=== PATIENT | female | born 1965 | race Caucasian/White ===

== ENCOUNTER 2022-10-13 07:54 | Outpatient (AMB) | payer BC, SELFPAY ==
[2022-10-13 08:02] VITALS: BP 122/78; PULSE 79; O2SAT 97; BMI 25.7
--- NOTE | 2022-10-13 08:02 | A.OFFVIS_ITS ---
Intake Vital Signs 10/13/22 08:02 Height 5 ft 6 in Weight 159 lb 8 oz BMI 25.7 BP 122/78 Blood Pressure Location Rt brachial Position Sitting Pulse 79 Pulse Source Pulse Oximeter Pulse Oximetry (%) 97 Oxygen Delivery Method Room Air Intake Visit Reasons: rENP-Stiffness,Myalgias -confirmed Intake Note: Pt presents in office as a NPV for stiffness, Myalgias Storage Receipt Poster Required: No Allergies codeine Allergy (Unknown, Verified 10/13/22 08:07) Unknown naproxen Allergy (Unknown, Verified 10/13/22 08:07) Itching Medication List - Last Reconciled 10/13/22 by Whitney Castro MD cholecalciferol (vitamin D3) 25 mcg PO DAILY estradiol 0.01%(0.1mg/gram) vaginal glucosamine HCl PO DAILY magnesium oxide 500 mg PO DAILY multivitamin 1 tab PO DAILY HPI HPI Comments History of Present Illness Details 56y/o female comes for generalized stiff ness and pain. About 4 mths ago she went for her usually lunch time walk and tried a thigh master . 2 days later she noticed difficulty climbing up and down the stairs , difficulty using her upper arms has pain in her thighs and yudy upper arms and neck pain usually with action. It is worse at night. she elevates her LE at night. she started advil which helps transiently. Her primary care checked JUDI was negative, ESR 34 and decreased to 17 , normal CK and other labs. SHe denies joint pain.she has not been exercising. she denies numbness. she has neck and shoulder pain.she denies weakness but has difficulty moving because of pain.She is peeing her urinal due to difficulty with sitting. [facility] Medical History (Updated 10/13/22 @ 08:36 by Whitney Castro MD) Weakness Muscle pain Cervicalgia Anxiety Surgical History H/O: hysterectomy Hx of vaginal surgery Hx of eye surgery Family History Mother Diabetes Hepatitis Father Diabetes Cerebrovascular accident (CVA) Social History (Updated 10/13/22 @ 08:12 by Josie Heller CMA) Alcohol intake: current Alcohol intake frequency: a few times a month Patient Tobacco Use Status: Former Tobacco user e-Cigarette/Vaping Use: Currently Using Substance Use Type: Marijuana Review of Systems Const Reports no additional complaints ENT Reports neck pain Musc Reports muscle cramps, Reports muscle weakness and Reports neck pain Psych Reports anxiety Physical Exam Vital Signs: Last Vital Signs Pulse 79 10/13/22 08:02 BP 122/78 10/13/22 08:02 Pulse Ox 97 10/13/22 08:02 Oxygen Delivery Method Room Air 10/13/22 08:02 BMI result Body Mass Index 25.7 Const General: cooperative and in distress Nutritional Appearance: average body habitus Orientation/consciousness: patient oriented x3 Eyes Pupils: Equal, round and reactive pupils present Neuro General: patient oriented x3, tone normal, moves all extremities and no focal motor deficits Cranial nerves: Yes Facial sensation intact/muscles of mastication intact, Yes Equal, round and reactive pupils present, Yes Bilaterally intact EOM present, Yes Nystagmus not present, Yes Normal facial strength present, Yes Midline tongue present, Yes Symmetric palate elevation present and Yes Ability to bilaterally elevate shoulders present Cognition (Neuro): normal cognition Gait exam (Neuro): Antalgic gait present Motor exam (neuro): 5/5 motor strength present throughout and Normal motor muscle tone present throughout Deep tendon reflexes (DTR's): Right triceps reflex intensity grade: 3+, Left triceps reflex intensity grade: 3+, Rt Biceps (C5, C6): 3+, Left biceps reflex intensity grade: 3+, Right brachioradialis reflex intensity grade: 3+, Left brachioradialis reflex intensity grade: 3+, Right patellar reflex intensity grade: 3+ and Left patellar reflex intensity grade: 3+ Coordination: [id number] test normal Assessment & Plan Assessment & Plan (1) Muscle pain: Code(s): M79.10 - Myalgia, unspecified site (2) Weakness: Code(s): R53.1 - Weakness (3) Cervicalgia: Code(s): M54.2 - Cervicalgia Plan Reviewed labs from [facility] will evaluate her with EMG C spine X patricia nd trial on gabapentin 300mg 1-2 tabs qhs Refer to Rheumatology for evaluation. Orders: Orders NE electromyogram (EMG) Today M79.10 - Myalgia, unspecified site, R53.1 - Weakness XR cervical spine 3V Today M54.2 - Cervicalgia Referrals Rheumatology Referral M79.10 - Myalgia, unspecified site, R53.1 - Weakness Medications: New gabapentin 1-2 orally bedtime; 60 caps 6RF Coding Level of Care Code New Pt Level 4 (26873) Diagnoses Muscle pain M79.10 Weakness R53.1 Cervicalgia M54.2
== END 2022-10-13 08:45 | disposition home or self-care (01) ==
PROVIDERS: PCP Physician Assistant; Visit Provider Psychiatry & Neurology Neurology
DX: M79.10 Myalgia, unspecified site (principal); R53.1 Weakness; M54.2 Cervicalgia
CPT/HCPCS: 99204

== ENCOUNTER → 2022-10-13 07:54 | Outpatient (BNVA) | payer BC, SELFPAY | PROVIDERS: PCP Physician Assistant; Visit Provider Psychiatry & Neurology Neurology ==

== ENCOUNTER 2022-11-17 15:15 | Outpatient (REF) | payer BC, SELFPAY ==
--- NOTE | 2022-11-17 15:19 | EMG_ITS ---
Chief complaint: Morning stiffness affecting neck, shoulders, thighs. Difficulty with going up stairs. Denies weakness. Reason for referral: Evaluate for myopathy Referred by: Dr. Castro Procedure done: Right upper extremity and right lower extremity NCS/EMG Precautions and/or limitations: None The limb temperature was monitored continuously and remained between 32-36 degrees C during the performance of the NCS. Nerve Conduction Studies Anti Sensory Summary Table ?Stim Site NR Onset (ms) Norm Onset (ms) Peak (ms) Norm Peak (ms) O-P Amp (?V) Norm O-P Amp Site1 Site2 Delta-0 (ms) Dist (cm) Nathan (m/s) Norm Nathan (m/s) Right Median Anti Sensory (2nd Digit) Wrist ? 3.1 3.6 <3.6 29.4 >10 Wrist 2nd Digit 3.1 14.0 45 Right Radial Anti Sensory (Thumb) Forearm ? 1.7 2.1 <3.1 27.9 Forearm Thumb 1.7 0.0 Right Sural Anti Sensory (Lat Mall) Calf ? 2.3 3.4 <4.0 13.1 >5.0 Calf Lat Mall 2.3 14.0 61 Right Ulnar Anti Sensory (5th Digit) Wrist ? 3.2 3.7 <3.7 33.8 >15.0 Wrist 5th Digit 3.2 14.0 44 Motor Summary Table ?Stim Site NR Onset (ms) Norm Onset (ms) O-P Amp (mV) Norm O-P Amp iAmp (mV) Amp (1st) (%) Site1 Site2 Delta-0 (ms) Dist (cm) Nathan (m/s) Norm Nathan (m/s) Right Median Motor (Abd Poll Brev) Wrist ? 3.4 <3.9 10.9 >4.5 12.4 100.0 Elbow Wrist 3.4 18.5 54 >45 Elbow ? 6.8 10.2 11.6 93.6 Right Peroneal Motor (Ext Dig Brev) Ankle ? 3.5 <4.0 4.5 >2.5 5.1 100.0 Ankle Ext Dig Brev 3.5 0.0 B Fib ? 10.3 4.2 4.9 93.3 B Fib Ankle 6.8 30.0 44 >40 Poplt ? 10.5 5.7 7.2 126.7 Poplt B Fib 0.2 4.0 200 >40 Right Tibial Motor (Abd Arnett Brev) Ankle ? 3.0 <5 9.4 >2.5 15.3 100.0 Ankle Abd Arnett Brev 3.0 0.0 Knee ? 10.2 10.4 14.3 110.6 Knee Ankle 7.2 38.0 53 >40 Right Ulnar Motor (Abd Dig Minimi) Wrist ? 3.0 <3.0 10.6 >5 13.6 100.0 B Elbow Wrist 3.3 17.0 52 >45 B Elbow ? 6.3 9.4 12.4 88.7 A Elbow B Elbow 1.9 10.0 53 >45 A Elbow ? 8.2 9.2 12.4 86.8 EMG ?Side Muscle Nerve Root Ins Act Fibs Psw Amp Dur Poly Recrt Int Pat Comment Right AbdHallucis MedPlantar S1-2 Nml Nml Nml Nml Nml 0 Nml Complete Right AntTibialis Dp Br Peron L4-5 Nml Nml Nml Nml Nml 0 Nml Complete Right PostTibialis Tibial L5, S1 Nml Nml Nml Nml Nml 0 Nml Complete Right MedGastroc Tibial S1-2 Nml Nml Nml Nml Nml 0 Nml Complete Right VastusMed Femoral L2-4 Nml Nml Nml Nml Nml 0 Nml Complete Right 1stDorInt Ulnar C8-T1 Nml Nml Nml Nml Nml 0 Nml Complete Right FlexCarRad Median C6-7 Nml Nml Nml Nml Nml 0 Nml Complete Right Biceps Musculocut C5-6 Nml Nml Nml Nml Nml 0 Nml Complete Right Triceps Radial C6-7-8 Nml Nml Nml Nml Nml 0 Nml Complete Right Deltoid Axillary C5-6 Nml Nml Nml Nml Nml 0 Nml Complete Paraspinal EMG ?Side Muscle Nerve Root Ins Act Fibs Psw Comment Right Lumbar Upper Rami Nml Nml Nml Right Lumbar Mid Rami Nml Nml Nml Right Lumbar Lower Rami Nml Nml Nml Right Cervical Upper Rami Nml Nml Nml Right Cervical Mid Rami Nml Nml Nml Right Cervical Lower Rami Nml Nml Nml FINDINGS: All motor and sensory nerves tested showed normal latencies, amplitudes and conduction velocities. Concentric needle EMG was performed in selected muscles of the right upper and lower extremities, cervical paraspinals, lumbar paraspinals. Study did not reveal signs of electric abnormalities as shown in the table below. No myopathic-looking MUAPS. IMPRESSION: 1. This is a normal Study. 2. There is no electrodiagnostic evidence for right median neuropathy, ulnar neuropathy, brachial plexopathy, cervical radiculopathy, peroneal neuropathy, tibial neuropathy. lumbosacral plexopathy, lumbar radiculopathy, or peripheral neuropathy. 3. There is no electrodiagnostic evidence for myopathic disorder. Thank you for your kind referral. Susan Taylor MD, ALICE Board Certified, [place] [employer] and [employer] (ABPMR) Board Certified, [place] Board [employer] Electrodiagnostic [employer] (ABEM) CODIN 44658 x 2 MTDD
== END 2022-11-17 15:16 | disposition home or self-care (01) ==
LOC: HO.NEURO 15:15
PROVIDERS: PCP Physician Assistant; Visit Provider Psychiatry & Neurology Neurology
DX: M79.10 Myalgia, unspecified site (principal); R53.1 Weakness
CPT/HCPCS: 95886; 95910

== ENCOUNTER → 2022-11-17 15:19 | Outpatient (BNV) | payer BC, SELFPAY | PROVIDERS: PCP Physician Assistant; Visit Provider Physical Medicine & Rehabilitation | DX: M25.60 Stiffness of unspecified joint, not elsewhere classified (principal) | CPT/HCPCS: 95886; 95910 ==

== ENCOUNTER 2022-11-24 07:46 | Outpatient (AMB) | payer BC, SELFPAY ==
--- NOTE | 2022-11-24 07:58 | MHC.OFFVIS ---
Intake Vital Signs 11/24/22 08:00 Height 5 ft 6 in Weight 159 lb 2.78 oz BMI 25.7 BP 182/76 H Blood Pressure Location Rt brachial Position Sitting Pulse 98 Pulse Source Pulse Oximeter Pulse Oximetry (%) 98 Oxygen Delivery Method Room Air Intake Visit Reasons: Myalgia Intake Note: New pt presents today for consult, referred by Neurology. C/o muscle pain and inflammation. Allergies codeine Allergy (Unknown, Verified 11/24/22 08:06) Unknown naproxen Allergy (Unknown, Verified 11/24/22 08:06) Itching Medication List - Last Reconciled 11/24/22 by Vi Peters MD cholecalciferol (vitamin D3) 25 mcg PO DAILY estradiol 0.01%(0.1mg/gram) vaginal gabapentin 1-2 orally bedtime; glucosamine HCl PO DAILY magnesium oxide 500 mg PO DAILY multivitamin 1 tab PO DAILY omega 3-gsa-upn-fish oil 60-90-500 mg (Fish Oil) 1 cap PO DAILY HPI HPI Comments History of Present Illness Details This is a 57-year-old female who presents for evaluation of generalized stiffness. Five months ago patient started having stiffness of her thighs and shoulders, usually worse in the morning and when getting up after sitting down for some time, she was evaluated by her PCP and labs were done including ASIYA, CPK which were negative. ESR was initially 34 then normalized to 17. She was evaluated by a neurologist and had EMG/NCV of all 4 extremities which were unremarkable with no neuropathic or myopathic process. Patient read up on her symptoms online and thought that she likely had PMR. She has been taking ibuprofen 800 mg nightly as well as tizanidine nightly. She borrowed the medications from her friends. She feels that they are helping. She denies any weight changes, fevers, skin rashes. Denies any Raynaud's. No history of DVT/PE. She she has no history of abortions or miscarriages PFSH Medical History (Updated 11/24/22 @ 08:54 by Vi Peters MD) Weakness Muscle pain Cervicalgia Anxiety Surgical History H/O: hysterectomy Hx of vaginal surgery Hx of eye surgery Family History Mother Diabetes Hepatitis Father Diabetes Cerebrovascular accident (CVA) Social History Alcohol intake: current Alcohol intake frequency: a few times a month Patient Tobacco Use Status: Former Tobacco user e-Cigarette/Vaping Use: Currently Using Substance Use Type: Marijuana Female Reproductive History Menstrual Total pregnancies: 2 Full term: 2 Review of Systems Const Denies weight gain and Denies weight loss ENT Reports neck pain Musc Reports limited range of motion, Reports neck pain and Reports stiffness Skin/Breast Denies rash Neuro Denies paresthesias Physical Exam Vital Signs: Last Vital Signs Pulse 98 11/24/22 08:00 BP 182/76 H 11/24/22 08:00 Pulse Ox 98 11/24/22 08:00 Oxygen Delivery Method Room Air 11/24/22 08:00 BMI result Body Mass Index 25.7 Const General: cooperative, healthy appearing and comfortable Nutritional Appearance: average body habitus Orientation/consciousness: patient oriented x3 Limitations: no limitations HEENT Head: Yes normocephalic and Yes atraumatic Resp Effort & Inspection: normal respiratory effort and able to speak in complete sentences Auscultation: clear to auscultation bilaterally Cardio Rate: regular rate Rhythm: regular rhythm GI Inspection: No distended Palpation (GI): Soft to palpation and nontender Skin General skin exam: no rashes or lesions noted Neuro General: patient oriented x3 Extrem Other: Mild osteoarthritic changes of both hands with no active synovitis Normal nailfold capillaroscopy Normal range of motion of both shoulders with minimal pain on full abduction Negative rotator cuff provocative maneuvers bilaterally Proximal muscle strength 5/5 both upper and lower extremities Assessment & Plan Assessment & Plan (1) Stiffness in joint: Code(s): M25.60 - Stiffness of unspecified joint, not elsewhere classified Plan: This is a 57-year-old female who presents for evaluation of stiffness of her shoulders and thighs for the last 4-5 months. Order comprehensive serology to screen for underlying autoimmune rheumatic disease. Check x-rays of both shoulders and knees Plan I spent 46 minutes reviewing patient's chart, evaluating patient, ordering diagnostic workup, counseling patient and documenting in the chart Orders: Orders Complete Blood Count Auto Diff Today M60.9 - Myositis, unspecified Comprehensive Met. Panel Today M60.9 - Myositis, unspecified Creatine Kinase Total Today M60.9 - Myositis, unspecified Protein Electrophoresis, Serum Today M60.9 - Myositis, unspecified Rheumatoid Factor Today M25.50 - Pain in unspecified joint Cyclic Citrullinated Peptide Today M60.9 - Myositis, unspecified Protein Creatinine Ratio, Ur Today M60.9 - Myositis, unspecified Sjogren's Antibodies Today M60.9 - Myositis, unspecified XR shoulder LT min 2V Today M25.50 - Pain in unspecified joint XR knee LT 3V Today M25.50 - Pain in unspecified joint XR knee standing BI Today M25.50 - Pain in unspecified joint C Reactive Protein Today M60.9 - Myositis, unspecified Erythrocyte Sedimentation Rate Today M60.9 - Myositis, unspecified Immunofixation Pnl, Serum Today M60.9 - Myositis, unspecified Hepatitis A,B,C Profile Today Z11.59 - Encounter for screening for other viral diseases Aldolase Today M60.9 - Myositis, unspecified Lactate Dehydrogenase Today M60.9 - Myositis, unspecified Anti Extractable Nuclear Ag Today M60.9 - Myositis, unspecified Anti DNA DS Antibody Today M60.9 - Myositis, unspecified Complement C3 Today M60.9 - Myositis, unspecified Complement C4 Today M60.9 - Myositis, unspecified UA w Microscopic Today M60.9 - Myositis, unspecified DNA Double Stranded-Crithidia Today M60.9 - Myositis, unspecified MSA Panel Extended Today M60.9 - Myositis, unspecified XR shoulder RT min 2V Today M25.50 - Pain in unspecified joint XR knee RT 3V Today M25.50 - Pain in unspecified joint Coding Level of Care Code New Pt Level 4 (78491) Diagnoses Stiffness in joint M25.60
[2022-11-24 08:00] VITALS: BP 182/76; PULSE 98; O2SAT 98; BMI 25.7
== END 2022-11-24 08:38 | disposition home or self-care (01) ==
PROVIDERS: PCP Physician Assistant; Visit Provider Student in an Organized Health Care Education/Training Program
DX: M25.60 Stiffness of unspecified joint, not elsewhere classified (principal)
CPT/HCPCS: 99204

== ENCOUNTER 2022-11-24 07:46 | Outpatient (REF) | payer BC, SELFPAY ==
--- NOTE | ~2022-11-24 | XR_ITS ---
EXAMINATION: XR BILATERAL KNEES, BILATERAL SHOULDERS CLINICAL INFORMATION: Pain in unspecified joint, mostly of bilateral shoulders COMPARISON: None TECHNIQUE: 4 views right knee, 5 views left knee, 4 views left shoulder, 4 views right shoulder FINDINGS: Left knee: AP, tunnel, lateral and 2 sunrise views of the left knee. Tiny posterior patellar and medial marginal osteophytes. No significant joint effusion. Faint small anterior superior patellar spur. Mild medial joint space narrowing. Focal irregular, sclerotic lesion measuring 2.0 x 1.5 cm, along the distal medial diametaphysis of the posterior left femur, possibly a chondroid lesion. Right knee: No significant joint effusion. Mild medial joint space narrowing. Tiny medial marginal osteophytes. Right shoulder: Mild osteoarthritic changes in the acromioclavicular joint. Mild degenerative changes with hypertrophic change along the inferior aspect of the glenoid. Glenohumeral alignment preserved. No abnormal soft tissue calcifications identified adjacent to the humeral head. Left shoulder: Mild osteoarthritic changes in the acromioclavicular joint. Mild degenerative changes with hypertrophic change along the inferior aspect of the glenoid. Glenohumeral alignment preserved. No abnormal soft tissue calcifications identified adjacent to the humeral head. XR/XR knee RT 4V IMPRESSION: 1. Mild degenerative changes in the bilateral knees. 2. Focal possibly chondroid lesion along the distal posterior medial diametaphysis of the left femur. Correlation with clinical exam as well as orthopedic consultation and possible MRI recommended to determine further management. 3. Mild degenerative changes in the bilateral shoulders. This study was presented today 11/29/2022 at 9:30 AM for interpretation. [facility] staff will provide results to referring provider at this time.
--- NOTE | ~2022-11-24 | XR_ITS ---
EXAMINATION: XR BILATERAL KNEES, BILATERAL SHOULDERS CLINICAL INFORMATION: Pain in unspecified joint, mostly of bilateral shoulders COMPARISON: None TECHNIQUE: 4 views right knee, 5 views left knee, 4 views left shoulder, 4 views right shoulder FINDINGS: Left knee: AP, tunnel, lateral and 2 sunrise views of the left knee. Tiny posterior patellar and medial marginal osteophytes. No significant joint effusion. Faint small anterior superior patellar spur. Mild medial joint space narrowing. Focal irregular, sclerotic lesion measuring 2.0 x 1.5 cm, along the distal medial diametaphysis of the posterior left femur, possibly a chondroid lesion. Right knee: No significant joint effusion. Mild medial joint space narrowing. Tiny medial marginal osteophytes. Right shoulder: Mild osteoarthritic changes in the acromioclavicular joint. Mild degenerative changes with hypertrophic change along the inferior aspect of the glenoid. Glenohumeral alignment preserved. No abnormal soft tissue calcifications identified adjacent to the humeral head. Left shoulder: Mild osteoarthritic changes in the acromioclavicular joint. Mild degenerative changes with hypertrophic change along the inferior aspect of the glenoid. Glenohumeral alignment preserved. No abnormal soft tissue calcifications identified adjacent to the humeral head. XR/XR shoulder LT min 2V IMPRESSION: 1. Mild degenerative changes in the bilateral knees. 2. Focal possibly chondroid lesion along the distal posterior medial diametaphysis of the left femur. Correlation with clinical exam as well as orthopedic consultation and possible MRI recommended to determine further management. 3. Mild degenerative changes in the bilateral shoulders. This study was presented today 11/29/2022 at 9:30 AM for interpretation. [facility] staff will provide results to referring provider at this time.
--- NOTE | ~2022-11-24 | XR_ITS ---
EXAMINATION: XR BILATERAL KNEES, BILATERAL SHOULDERS CLINICAL INFORMATION: Pain in unspecified joint, mostly of bilateral shoulders COMPARISON: None TECHNIQUE: 4 views right knee, 5 views left knee, 4 views left shoulder, 4 views right shoulder FINDINGS: Left knee: AP, tunnel, lateral and 2 sunrise views of the left knee. Tiny posterior patellar and medial marginal osteophytes. No significant joint effusion. Faint small anterior superior patellar spur. Mild medial joint space narrowing. Focal irregular, sclerotic lesion measuring 2.0 x 1.5 cm, along the distal medial diametaphysis of the posterior left femur, possibly a chondroid lesion. Right knee: No significant joint effusion. Mild medial joint space narrowing. Tiny medial marginal osteophytes. Right shoulder: Mild osteoarthritic changes in the acromioclavicular joint. Mild degenerative changes with hypertrophic change along the inferior aspect of the glenoid. Glenohumeral alignment preserved. No abnormal soft tissue calcifications identified adjacent to the humeral head. Left shoulder: Mild osteoarthritic changes in the acromioclavicular joint. Mild degenerative changes with hypertrophic change along the inferior aspect of the glenoid. Glenohumeral alignment preserved. No abnormal soft tissue calcifications identified adjacent to the humeral head. XR/XR knee LT 4V IMPRESSION: 1. Mild degenerative changes in the bilateral knees. 2. Focal possibly chondroid lesion along the distal posterior medial diametaphysis of the left femur. Correlation with clinical exam as well as orthopedic consultation and possible MRI recommended to determine further management. 3. Mild degenerative changes in the bilateral shoulders. This study was presented today 11/29/2022 at 9:30 AM for interpretation. [facility] staff will provide results to referring provider at this time.
--- NOTE | ~2022-11-24 | XR_ITS ---
EXAMINATION: XR BILATERAL KNEES, BILATERAL SHOULDERS CLINICAL INFORMATION: Pain in unspecified joint, mostly of bilateral shoulders COMPARISON: None TECHNIQUE: 4 views right knee, 5 views left knee, 4 views left shoulder, 4 views right shoulder FINDINGS: Left knee: AP, tunnel, lateral and 2 sunrise views of the left knee. Tiny posterior patellar and medial marginal osteophytes. No significant joint effusion. Faint small anterior superior patellar spur. Mild medial joint space narrowing. Focal irregular, sclerotic lesion measuring 2.0 x 1.5 cm, along the distal medial diametaphysis of the posterior left femur, possibly a chondroid lesion. Right knee: No significant joint effusion. Mild medial joint space narrowing. Tiny medial marginal osteophytes. Right shoulder: Mild osteoarthritic changes in the acromioclavicular joint. Mild degenerative changes with hypertrophic change along the inferior aspect of the glenoid. Glenohumeral alignment preserved. No abnormal soft tissue calcifications identified adjacent to the humeral head. Left shoulder: Mild osteoarthritic changes in the acromioclavicular joint. Mild degenerative changes with hypertrophic change along the inferior aspect of the glenoid. Glenohumeral alignment preserved. No abnormal soft tissue calcifications identified adjacent to the humeral head. XR/XR shoulder RT min 2V IMPRESSION: 1. Mild degenerative changes in the bilateral knees. 2. Focal possibly chondroid lesion along the distal posterior medial diametaphysis of the left femur. Correlation with clinical exam as well as orthopedic consultation and possible MRI recommended to determine further management. 3. Mild degenerative changes in the bilateral shoulders. This study was presented today 11/29/2022 at 9:30 AM for interpretation. [facility] staff will provide results to referring provider at this time.
[2022-11-24 09:49] LABS: MANUAL DIFF FLAG NO
[2022-11-24 10:53] LABS: Basophils Percent Auto 0.4 % (0-2); Eosinophils Absolute Auto 0.1 X10*3/uL (0.0-0.4); Eosinophils Percent Auto 0.6 % (0-4); Hematocrit 41.7 % (37.0-47.0); Imm Gran Abs Auto 0.03 X10*3/uL (0.00-0.03); Imm Gran Pct Auto 0.4 % (0.0-0.4); Lymphocytes Absolute Auto 1.7 X10*3/uL (1.2-4.9); Lymphocytes Percent Auto 21.8 % (20-40); Mean Corpuscular HGB Conc 33.6 g/dl (31.0-35.0); Mean Corpuscular Hemoglobin 30.4 pg (27.0-33.0); Mean Corpuscular Volume 90.5 fL (80.0-98.0); Mean Platelet Volume 9.7 fL (9.4-12.3); Monocytes Absolute Auto 0.7 X10*3/uL (0.1-1.2); Monocytes Percent Auto 9.5 % (2-11); Neutrophils Absolute Auto 5.2 x10*3/uL (2.0-8.3); Neutrophils Percent Auto 67.3 % (45-73); Platelet Count 335 X10*3/uL (160-400); Red Blood Count 4.61 X10*6/uL (4.20-5.50); Red Cell Distribution Width 13.9 % (11.0-16.0); White Blood Count 7.8 X10*3/uL (4.8-10.8)
[2022-11-24 11:07] LABS: Appearance Urine Clear; Color Urine Yellow; Glucose Urine UA Negative (Negative); Leukocyte Esterase Urine Moderate (2+) (Negative); Nitrite Urine Positive (Negative); PH 7.5 (5.0-9.0); UMIC TRIGGER UA YES; Urine Blood Negative (Negative); Urine Ketones Negative (Negative); Urine Protein Negative (Neg-Trace)
[2022-11-24 11:10] LABS: Bacteria Urine 4+ (None Seen); Hyaline Casts Urine 0-2 /LPF (0-2); RBC Urine 0-2 /HPF (0-2)
[2022-11-24 11:32] LABS: Erythrocyte Sedimentation Rate 38 MM/HR (0-20)
[2022-11-24 12:09] LABS: Alanine Aminotransferase 17 U/L (0-31); Albumin Level 4.2 g/dL (3.5-5.0); Alkaline Phosphatase 103 U/L (39-117); Anion Gap 14 (12-20); Aspartate Amino Transferase 18 U/L (5-31); Bilirubin Total 0.6 mg/dL (0.0-1.0); Blood Urea Nitrogen 12 mg/dL (9-16); C Reactive Protein 4.25 mg/dL (< or = 0.50); Calcium 10.1 mg/dL (8.4-10.2); Carbon Dioxide 25 mmol/L (22-29); Chloride 105 mmol/L (96-108); Estimated Glomerular Filt Rate > 60; Glucose Random 82 mg/dL (60-115); Lactate Dehydrogenase 194 U/L (122-220); Potassium 3.8 mmol/L (3.3-5.1); Sodium 140 mmol/L (135-145); Total Protein 7.9 g/dL (6.5-8.0)
[2022-11-24 12:57] LABS: Rheumatoid Factor < 13.0 IU/mL (<15.0)
[2022-11-24 13:33] LABS: Creatinine Urine 40.09 mg/dL; Total Protein Urine Random < 7 mg/dL (<12)
[2022-11-25 08:06] LABS: HBc Num1 0.11 S/CO (0.00-0.79); HBsAGNum1 0.39 S/CO (0.00-0.99); Hepatitis A Antibody IgM 0.38 Index (0-0.79); Hepatitis B Core Antibody Nonreactive (Nonreactive); Hepatitis B Surface Antigen Negative (Negative); ~HepC Num1 0.04 S/CO (0.00-0.79); ~Hepatitis A Antibody IgM Nonreactive (Nonreactive); ~Hepatitis B Surface Antibody NONREACTIVE (Nonreactive); ~Hepatitis C Antibody Nonreactive (Nonreactive)
[2022-11-25 20:53] LABS: Complement C3 183 mg/dL (83-193)
[2022-11-27 11:04] LABS: Cyclic Citrullinated Peptide 89 UNITS
[2022-11-29 06:09] LABS: Aldolase 5.4 U/L (<=8.1)
[2022-11-29 08:33] LABS: PES - Abn Protein Band 1 0.2 g/dL (NONE DETECTED); Prot Elec - Albumin 4.2 g/dL (3.8-4.8); Prot Elec - Alpha1 0.4 g/dL (0.2-0.3); Prot Elec - Alpha2 0.9 g/dL (0.5-0.9); Prot Elec - Beta 1 0.6 g/dL (0.4-0.6); Prot Elec - Beta 2 0.4 g/dL (0.2-0.5); Prot Elec - Gamma 1.2 g/dL (0.8-1.7); Prot Elec - Total Protein 7.6 g/dL (6.1-8.1)
[2022-11-30 13:09] LABS: Anti DNA DS Antibody <1 IU/mL; Antibody to SS-A Antigen <1.0 NEG AI (<1.0 NEG); Antibody to SS-B Antigen <1.0 NEG AI (<1.0 NEG); SM/Ribonucleoprotein Ab <1.0 NEG AI (<1.0 NEG); Smith Protein <1.0 NEG AI (<1.0 NEG)
[2022-11-30 15:23] LABS: DNAds, Crithidia Antibody Negative (Negative)
[2022-12-01 15:05] LABS: IgA 317 mg/dL (47-310); IgG 1275 mg/dL (600-1640); IgM 170 mg/dL (50-300)
[2022-12-05 23:54] LABS: Cytosolic 5'nuc 1A Ab IgG 13 Units; Ej Ab <11 SI (<11); HMGCR Ab IgG <2 CU (<20); Jo-1 Ab <11 SI (<11); MDA5 Ab <11 SI (<11); Mi-2 alpha Ab <11 SI (<11); Mi-2 beta Ab <11 SI (<11); NXP-2 (MJ) Ab <11 SI (<11); Oj Ab <11 SI (<11); Pl-12 Ab <11 SI (<11); Pl-7 Ab <11 SI (<11); SRP Ab <11 SI (<11); TIF1 gamma Ab <11 SI (<11)
== END 2022-11-24 07:47 | disposition home or self-care (01) ==
LOC: HO.XRAY 07:46
PROVIDERS: PCP Physician Assistant; Visit Provider Student in an Organized Health Care Education/Training Program
DX: Z11.59 Encounter for screening for other viral diseases (principal); M25.60 Stiffness of unspecified joint, not elsewhere classified; M60.9 Myositis, unspecified; Z72.89 Other problems related to lifestyle; M25.511 Pain in right shoulder; M25.512 Pain in left shoulder; M25.561 Pain in right knee; M25.562 Pain in left knee
CPT/HCPCS: 36415; 73030; 73564; 80053; 81001; 82085; 82550; 82570; 82784; 83516; 83520; 83615; 84156; 84165; 84182; 85025; 85652; 86140; 86160; 86200; 86225; 86235; 86255; 86334; 86431; 86704; 86706; 86709; 86803; 87340

== ENCOUNTER 2022-12-09 07:46 | Outpatient (AMB) | payer BC, SELFPAY ==
[2022-12-09 08:05] VITALS: BP 138/76; PULSE 70; TEMP 36.2; O2SAT 98; BMI 25.7
--- NOTE | 2022-12-09 08:05 | A.OFFVIS_ITS ---
Intake Vital Signs 12/09/22 08:05 Height 5 ft 6 in Weight 159 lb 2.78 oz BMI 25.7 BP 138/76 Blood Pressure Location Rt brachial Position Sitting Pulse 70 Pulse Source Pulse Oximeter Temp 97.2 F Temp Source Skin Pulse Oximetry (%) 98 Intake Visit Reasons: stiffness Intake Note: Pt last seen 11/24/22, presents today for follow up and test results. Prednisone 20mg daily, pt states she feels better. 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 Required: No Accompanied by: Self / Same As Patient Allergies codeine Allergy (Unknown, Verified 12/09/22 08:12) Unknown naproxen Allergy (Unknown, Verified 12/09/22 08:12) Itching Medication List - Last Reconciled 12/09/22 by iV Peters MD cholecalciferol (vitamin D3) 25 mcg PO DAILY estradiol 0.01%(0.1mg/gram) vaginal gabapentin 1-2 orally bedtime; glucosamine HCl PO DAILY magnesium oxide 500 mg PO DAILY multivitamin 1 tab PO DAILY omega 0-qoj-pqn-fish oil 60-90-500 mg (Fish Oil) 1 cap PO DAILY prednisone 20 mg (2 x 10 mg) PO DIRECTED HPI HPI Comments History of Present Illness Details Patient returns for follow-up. She is currently on prednisone 20 mg daily. States that after 3 days she felt better. At least 96% improvement. Initial history: This is a 57-year-old female who presents for evaluation of generalized stiffness. Five months ago patient started having stiffness of her thighs and shoulders, usually worse in the morning and when getting up after sitting down for some time, she was evaluated by her PCP and labs were done including ASIYA, CPK which were negative. ESR was initially 34 then normalized to 17. She was evaluated by a neurologist and had EMG/NCV of all 4 extremities which were unremarkable with no neuropathic or myopathic process. Patient read up on her symptoms online and thought that she likely had PMR. She has been taking ibuprofen 800 mg nightly as well as tizanidine nightly. She borrowed the medications from her friends. She feels that they are helping. She denies any weight changes, fevers, skin rashes. Denies any Raynaud's. No history of DVT/PE. She she has no history of abortions or miscarriages [facility] Medical History Weakness Muscle pain Cervicalgia Anxiety Surgical History H/O: hysterectomy Hx of vaginal surgery Hx of eye surgery Family History Mother Diabetes Hepatitis Father Diabetes Cerebrovascular accident (CVA) Social History Alcohol intake: current Alcohol intake frequency: a few times a month Patient Tobacco Use Status: Former Tobacco user e-Cigarette/Vaping Use: Currently Using Substance Use Type: Marijuana Review of Systems [place]c Denies arthralgias and Denies stiffness Physical Exam Vital Signs: Last Vital Signs Temp 97.2 F 12/09/22 08:05 Pulse 70 12/09/22 08:05 BP 138/76 12/09/22 08:05 Pulse Ox 98 12/09/22 08:05 BMI result Body Mass Index 25.7 Const General: cooperative, healthy appearing and comfortable Nutritional Appearance: average body habitus Orientation/consciousness: patient oriented x3 Limitations: no limitations HEENT Head: Yes normocephalic and Yes atraumatic Resp Effort & Inspection: normal respiratory effort and able to speak in complete sentences Skin General skin exam: no rashes or lesions noted Neuro General: patient oriented x3 Extrem Other: Mild osteoarthritic changes of both hands with no active synovitis Normal nailfold capillaroscopy Normal range of motion of both shoulders with no pain Negative rotator cuff provocative maneuvers bilaterally Bilateral knee crepitus Proximal muscle strength 5/5 both upper and lower extremities Results Reviewed Results Reviewed: XR/XR knee RT 4V IMPRESSION: Left knee: AP, tunnel, lateral and 2 sunrise views of the left knee. Tiny posterior patellar and medial marginal osteophytes. No significant joint effusion. Faint small anterior superior patellar spur. Mild medial joint space narrowing. Focal irregular, sclerotic lesion measuring 2.0 x 1.5 cm, along the distal medial diametaphysis of the posterior left femur, possibly a chondroid lesion. 1. Mild degenerative changes in the bilateral knees. 2. Focal possibly chondroid lesion along the distal posterior medial diametaphysis of the left femur. Correlation with clinical exam as well as orthopedic consultation and possible MRI recommended to determine further management. 3. Mild degenerative changes in the bilateral shoulders. This study was presented today 11/29/2022 at 9:30 AM for interpretation. PSA staff will provide results to referring provider at this time. Dictated By: Sweetie Cantrell MD Signed By: <Electronically signed by Sweetie Cantrell MD in OV> 11/29/22 [facility] RADIOLOGIC EXAMINATION FEMUR MINIMUM 2 VIEWS Exam Date: 03/09/2022 12:04 PM Ordering Diagnosis: Enchondroma ? LEFT FEMUR-4 VIEWS ? HISTORY: Enchondroma. ? PRIOR: MRI LEFT KNEE 06/20/2016. LEFT KNEE 06/10/2016. ? FINDINGS: 1.6 x 1.7 x 2.1 cm enchondroma of the medial aspect of the medial femoral condyle is unchanged. ? There is no fracture or dislocation. ? The left hip joint and left knee joint are unremarkable. ? IMPRESSION IMPRESSION: Stable 1.6 x 1.7 x 2.1 cm enchondroma of the medial femoral condyle. MRI ANY JT LOW EXTREM W/WO CONTRAST Exam Date: 06/20/2016 9:59 AM Ordering Diagnosis: Abnormal x-ray examinationLeft knee pain, unspecified chronicity ? History: Left knee pain. Distal femoral lesion on plain films. ? Left knee MRI with gadolinium enhancement: A departmental standard gadolinium enhanced knee MRI protocol was used. 7 mL of Magnevist were given for IV contrast. ? FINDINGS: There is a 2.0 x 1.5 x 1.4 cm predominantly high T2 signal intensity fairly circumscribed lesion in the medial aspect of the medial femoral condyle corresponding to the abnormality seen on plain films dated 06/10/2016. It abuts the cortex medially and is distal metaphyseal in location. It contains numerous floccular low to intermediate signal intensity foci. Enhancement is almost entirely peripheral. The appearance is typical for an enchondroma. There is little or no no endosteal scalloping. There are no other additional features to suggest chondrosarcoma. If the patient has pain specifically related to this area, the possibility of chondrosarcoma is increased. A healed or healing bone infarct could conceivably have this configuration but is less likely. The level of confidence the same machine between enchondroma and chondrosarcoma given these characteristics as greater than 95% but not 100%. Correlation with nuclear medicine bone scan has the potential to increase the confidence of the diagnosis. Plain film follow-up is recommended, initially in 3-6 months. ? The menisci, ACL, PCL and collateral ligaments are intact. There are no appreciable cartilage defects or degenerative changes. There is a very small Vazquez's cyst. There is an additional tiny popliteal cyst posterior to the lateral joint compartment. It is probably related to the proximal tibial and fibular articulation. ? IMPRESSION: Findings probably representing an enchondroma in the distal femur. If symptoms are not referable to this lesion, the possibility of chondrosarcoma is extremely remote. If this does correspond to the patient's symptomatic area the likelihood of chondrosarcoma increase is somewhat but is still unlikely. Nuclear medicine bone scan has a potential to increase the degree of confidence in the diagnosis. 3-6 month plain film follow-up is recommended. Assessment & Plan Assessment & Plan (1) PMR (polymyalgia rheumatica): Code(s): M35.3 - Polymyalgia rheumatica Plan: This is a 57-year-old female who presents for evaluation of 4-5 months history of bilateral shoulder and thigh stiffness. Labs showed mildly elevated ESR at 38 that trended down to 17 with ibuprofen then came back up again to 38, CRP was significantly elevated. She has a positive anti CCP antibody in high titer. Patient's symptoms at this stage are more consistent with PMR rather than rheumatoid arthritis, however she definitely does not have a full classic picture of PMR. She might evolve into rheumatoid arthritis She was started on prednisone 20 mg daily with dramatic improvement. For now will treat patient as PMR, if patient starts to develop a flare up, will consider starting DMARDs for rheumatoid arthritis such as methotrexate. Will reduce prednisone to 17.5 mg daily for 2 weeks, 15 mg daily for 2 weeks then remain on 12.5 mg daily for 4 weeks until next visit Labs before next visit in 8 weeks (2) Monoclonal gammopathies: Code(s): D47.2 - Monoclonal gammopathy Plan: Referred to Hematology (3) Enchondroma of femur: Code(s): D16.20 - Benign neoplasm of long bones of unspecified lower limb Qualifiers: Laterality: left Qualified Code(s): D16.22 - Benign neoplasm of long bones of left lower limb Plan: Size has been stable since 2017. This is likely a benign lesion Plan I spent 46 minutes reviewing patient's chart, evaluating patient, ordering diagnostic workup, counseling patient and documenting in the chart Orders: Orders T Spot TB 8 Weeks Z11.7 - Encounter for testing for latent tuberculosis infection Referrals Hematology & Oncology Referral D47.2 - Monoclonal gammopathy Medications: New prednisone Take 7 tabs by mouth daily for 2 weeks then 6 tabs by mouth daily for 2 weeks then remain on 5 tabs daily 322 tabs 0RF NS Coding Level of Care Code Est Pt Level 5 (67414) Diagnoses PMR (polymyalgia rheumatica) M35.3 Monoclonal gammopathies D47.2 Enchondroma of left femur D16.22 Laterality: left
== END 2022-12-09 08:35 | disposition home or self-care (01) ==
PROVIDERS: PCP Physician Assistant; Visit Provider Student in an Organized Health Care Education/Training Program
DX: M35.3 Polymyalgia rheumatica (principal); D47.2 Monoclonal gammopathy; D16.22 Benign neoplasm of long bones of left lower limb
CPT/HCPCS: 99215

== ENCOUNTER → 2022-12-09 07:46 | Outpatient (BNVA) | payer BC, SELFPAY | PROVIDERS: PCP Physician Assistant; Visit Provider Student in an Organized Health Care Education/Training Program ==

== ENCOUNTER → 2023-01-09 15:40 | Outpatient (BNV) | payer BC, SELFPAY | PROVIDERS: Visit Provider Internal Medicine | DX: D47.2 Monoclonal gammopathy (principal) | CPT/HCPCS: 99204 ==

== ENCOUNTER 2023-01-31 07:35 | Outpatient (AMB) | payer BC, SELFPAY ==
[2023-01-31 07:40] VITALS: BP 112/70; PULSE 74; TEMP 36.1; O2SAT 97; BMI 26.5
--- NOTE | 2023-01-31 07:40 | MHC.OFFVIS ---
Intake Vital Signs 01/31/23 07:40 Height 5 ft 6 in Weight 164 lb 3.91 oz BMI 26.5 BP 112/70 Blood Pressure Location Lt brachial Position Sitting Pulse 74 Pulse Source Pulse Oximeter Temp 97 F Temp Source Skin Pulse Oximetry (%) 97 Oxygen Delivery Method Room Air Intake Visit Reasons: PMR/RA Intake Note: Pt last seen 12/09/22 presents today for follow up and test results. On Prednisone 12.5 qd. Plant Guard Required: No Accompanied by: Self / Same As Patient Allergies codeine Allergy (Unknown, Verified 01/31/23 07:43) Unknown naproxen Allergy (Unknown, Verified 01/31/23 07:43) Itching Medication List - Last Reconciled 01/31/23 by Vi Peters MD cholecalciferol (vitamin D3) 50 mcg PO DAILY estradiol 0.01%(0.1mg/gram) 1 appl vaginal QWEEK glucosamine HCl 1 cap PO DAILY magnesium oxide 500 mg PO DAILY multivitamin 1 tab PO DAILY omega 3-wlu-nid-fish oil 60-90-500 mg (Fish Oil) 1 cap PO DAILY prednisone 12.5 mg (5 x 2.5 mg) PO DAILY NS HPI HPI Comments History of Present Illness Details 57-year-old female with PMR/RA returns for follow-up. On prednisone 12.5 mg daily for the last 4 weeks or so. She states that she has been doing well until the last 2 weeks and she started having recurrent joint pains and stiffness especially in shoulders and thighs. She feels that prednisone takes longer to work. 3-4 hours at least in the morning for the stiffness to improved. She has been eating more sugar over the Herminio holidays that she wonders whether it is related Initial history: This is a 57-year-old female who presents for evaluation of generalized stiffness. Five months ago patient started having stiffness of her thighs and shoulders, usually worse in the morning and when getting up after sitting down for some time, she was evaluated by her PCP and labs were done including ASIYA, CPK which were negative. ESR was initially 34 then normalized to 17. She was evaluated by a neurologist and had EMG/NCV of all 4 extremities which were unremarkable with no neuropathic or myopathic process. Patient read up on her symptoms online and thought that she likely had PMR. She has been taking ibuprofen 800 mg nightly as well as tizanidine nightly. She borrowed the medications from her friends. She feels that they are helping. She denies any weight changes, fevers, skin rashes. Denies any Raynaud's. No history of DVT/PE. She she has no history of abortions or miscarriages [facility] Medical History Weakness Muscle pain Cervicalgia Anxiety Surgical History H/O: hysterectomy Hx of vaginal surgery Hx of eye surgery Family History Mother Diabetes Hepatitis Father Diabetes Cerebrovascular accident (CVA) Social History Alcohol intake: current Alcohol intake frequency: a few times a month Patient Tobacco Use Status: Former Tobacco user e-Cigarette/Vaping Use: Currently Using Substance Use Type: Marijuana Review of Systems [facility] [place] arthralgias and Reports stiffness Physical Exam Vital Signs: Last Vital Signs Temp 97 F 01/31/23 07:40 Pulse 74 01/31/23 07:40 BP 112/70 01/31/23 07:40 Pulse Ox 97 01/31/23 07:40 Oxygen Delivery Method Room Air 01/31/23 07:40 BMI result Body Mass Index 26.5 Const Other: Minimal early perez facies General: cooperative, healthy appearing and comfortable Nutritional Appearance: average body habitus Orientation/consciousness: patient oriented x3 Limitations: no limitations HEENT Head: Yes normocephalic and Yes atraumatic Resp Effort & Inspection: normal respiratory effort and able to speak in complete sentences Auscultation: clear to auscultation bilaterally Cardio Rate: regular rate Rhythm: regular rhythm GI Inspection: No distended Palpation (GI): Soft to palpation and nontender Skin General skin exam: no rashes or lesions noted Neuro General: patient oriented x3 Extrem Other: Mild osteoarthritic changes of both hands with no active synovitis Normal nailfold capillaroscopy Normal range of motion of both shoulders, minimal pain at maximum abduction Negative rotator cuff provocative maneuvers bilaterally Negative speed's test bilateral Bilateral knee crepitus Proximal muscle strength 5/5 both upper and lower extremities Results Reviewed Results Reviewed: XR/XR knee RT 4V IMPRESSION: Left knee: AP, tunnel, lateral and 2 sunrise views of the left knee. Tiny posterior patellar and medial marginal osteophytes. No significant joint effusion. Faint small anterior superior patellar spur. Mild medial joint space narrowing. Focal irregular, sclerotic lesion measuring 2.0 x 1.5 cm, along the distal medial diametaphysis of the posterior left femur, possibly a chondroid lesion. 1. Mild degenerative changes in the bilateral knees. 2. Focal possibly chondroid lesion along the distal posterior medial diametaphysis of the left femur. Correlation with clinical exam as well as orthopedic consultation and possible MRI recommended to determine further management. 3. Mild degenerative changes in the bilateral shoulders. This study was presented today 11/29/2022 at 9:30 AM for interpretation. PSA staff will provide results to referring provider at this time. Dictated By: Sweetie Cantrell MD Signed By: <Electronically signed by Sweetie Cantrell MD in OV> 11/29/22 [facility] RADIOLOGIC EXAMINATION FEMUR MINIMUM 2 VIEWS Exam Date: 03/09/2022 12:04 PM Ordering Diagnosis: Enchondroma ? LEFT FEMUR-4 VIEWS ? HISTORY: Enchondroma. ? PRIOR: MRI LEFT KNEE 06/20/2016. LEFT KNEE 06/10/2016. ? FINDINGS: 1.6 x 1.7 x 2.1 cm enchondroma of the medial aspect of the medial femoral condyle is unchanged. ? There is no fracture or dislocation. ? The left hip joint and left knee joint are unremarkable. ? IMPRESSION IMPRESSION: Stable 1.6 x 1.7 x 2.1 cm enchondroma of the medial femoral condyle. MRI ANY JT LOW EXTREM W/WO CONTRAST Exam Date: 06/20/2016 9:59 AM Ordering Diagnosis: Abnormal x-ray examinationLeft knee pain, unspecified chronicity ? History: Left knee pain. Distal femoral lesion on plain films. ? Left knee MRI with gadolinium enhancement: A departmental standard gadolinium enhanced knee MRI protocol was used. 7 mL of Magnevist were given for IV contrast. ? FINDINGS: There is a 2.0 x 1.5 x 1.4 cm predominantly high T2 signal intensity fairly circumscribed lesion in the medial aspect of the medial femoral condyle corresponding to the abnormality seen on plain films dated 06/10/2016. It abuts the cortex medially and is distal metaphyseal in location. It contains numerous floccular low to intermediate signal intensity foci. Enhancement is almost entirely peripheral. The appearance is typical for an enchondroma. There is little or no no endosteal scalloping. There are no other additional features to suggest chondrosarcoma. If the patient has pain specifically related to this area, the possibility of chondrosarcoma is increased. A healed or healing bone infarct could conceivably have this configuration but is less likely. The level of confidence the same machine between enchondroma and chondrosarcoma given these characteristics as greater than 95% but not 100%. Correlation with nuclear medicine bone scan has the potential to increase the confidence of the diagnosis. Plain film follow-up is recommended, initially in 3-6 months. ? The menisci, ACL, PCL and collateral ligaments are intact. There are no appreciable cartilage defects or degenerative changes. There is a very small Vazquez's cyst. There is an additional tiny popliteal cyst posterior to the lateral joint compartment. It is probably related to the proximal tibial and fibular articulation. ? IMPRESSION: Findings probably representing an enchondroma in the distal femur. If symptoms are not referable to this lesion, the possibility of chondrosarcoma is extremely remote. If this does correspond to the patient's symptomatic area the likelihood of chondrosarcoma increase is somewhat but is still unlikely. Nuclear medicine bone scan has a potential to increase the degree of confidence in the diagnosis. 3-6 month plain film follow-up is recommended. Assessment & Plan Assessment & Plan (1) PMR (polymyalgia rheumatica): Code(s): M35.3 - Polymyalgia rheumatica Plan: This is a 57-year-old female who presents for evaluation of 4-5 months history of bilateral shoulder and thigh stiffness. Labs showed mildly elevated ESR at 38 that trended down to 17 with ibuprofen then came back up again to 38, CRP was significantly elevated. She has a positive anti CCP antibody in high titer. Patient's symptoms at this stage are more consistent with PMR rather than rheumatoid arthritis, however she definitely does not have a full classic picture of PMR. She might evolve into rheumatoid arthritis She was started on prednisone 20 mg daily with dramatic improvement. Some recurring symptoms on prednisone 12.5 mg daily. Will check inflammatory markers. Contrast prednisone dose as needed. Consider nighttime dose (2) Monoclonal gammopathies: Code(s): D47.2 - Monoclonal gammopathy Plan: Follows up with Hematology (3) Enchondroma of femur: Code(s): D16.20 - Benign neoplasm of long bones of unspecified lower limb Qualifiers: Laterality: left Qualified Code(s): D16.22 - Benign neoplasm of long bones of left lower limb Plan: Size has been stable since 2017. This is likely a benign lesion Plan I spent 26 minutes reviewing patient's chart, evaluating patient, ordering diagnostic workup, counseling patient and documenting in the chart Orders: Orders Complete Blood Count Auto Diff 2 Months M35.3 - Polymyalgia rheumatica Comprehensive Met. Panel 2 Months M35.3 - Polymyalgia rheumatica C Reactive Protein 2 Months M35.3 - Polymyalgia rheumatica Erythrocyte Sedimentation Rate 2 Months M35.3 - Polymyalgia rheumatica Coding Level of Care Code Est Pt Level 4 (28446) Diagnoses PMR (polymyalgia rheumatica) M35.3 Monoclonal gammopathies D47.2 Enchondroma of left femur D16.22 Laterality: left
== END 2023-01-31 08:14 | disposition home or self-care (01) ==
PROVIDERS: PCP Physician Assistant; Visit Provider Student in an Organized Health Care Education/Training Program
DX: M35.3 Polymyalgia rheumatica (principal); D47.2 Monoclonal gammopathy; D16.22 Benign neoplasm of long bones of left lower limb
CPT/HCPCS: 99214

== ENCOUNTER → 2023-01-31 07:35 | Outpatient (BNVA) | payer BC, SELFPAY | PROVIDERS: PCP Physician Assistant; Visit Provider Student in an Organized Health Care Education/Training Program ==

== ENCOUNTER 2023-04-10 14:15 | Outpatient (REF) | payer BC, SELFPAY ==
[2023-04-10 14:34] LABS: MANUAL DIFF FLAG NO
[2023-04-10 14:53] LABS: Basophils Percent Auto 0.3 % (0-2); Eosinophils Percent Auto 0.3 % (0-4); Hematocrit 43.1 % (37.0-47.0); Hemoglobin 14.8 g/dl (12.0-16.0); Imm Gran Abs Auto 0.04 X10*3/uL (0.00-0.03); Imm Gran Pct Auto 0.5 % (0.0-0.4); Lymphocytes Absolute Auto 2.4 X10*3/uL (1.2-4.9); Lymphocytes Percent Auto 27.9 % (20-40); Mean Corpuscular HGB Conc 34.3 g/dl (31.0-35.0); Mean Corpuscular Hemoglobin 32.5 pg (27.0-33.0); Mean Corpuscular Volume 94.7 fL (80.0-98.0); Mean Platelet Volume 9.7 fL (9.4-12.3); Monocytes Absolute Auto 0.8 X10*3/uL (0.1-1.2); Monocytes Percent Auto 8.9 % (2-11); Neutrophils Absolute Auto 5.4 x10*3/uL (2.0-8.3); Neutrophils Percent Auto 62.1 % (45-73); Platelet Count 291 X10*3/uL (160-400); Red Blood Count 4.55 X10*6/uL (4.20-5.50); Red Cell Distribution Width 14.1 % (11.0-16.0); White Blood Count 8.7 X10*3/uL (4.8-10.8)
[2023-04-10 15:46] LABS: Erythrocyte Sedimentation Rate 9 MM/HR (0-20)
[2023-04-10 15:57] LABS: Alanine Aminotransferase 18 U/L (0-31); Albumin Level 4.3 g/dL (3.5-5.0); Alkaline Phosphatase 73 U/L (39-117); Anion Gap 11 (12-20); Aspartate Amino Transferase 17 U/L (5-31); Bilirubin Total 0.6 mg/dL (0.0-1.0); Blood Urea Nitrogen 17 mg/dL (9-16); Calcium 9.9 mg/dL (8.4-10.2); Carbon Dioxide 30 mmol/L (22-29); Chloride 104 mmol/L (96-108); Estimated Glomerular Filt Rate > 60; Glucose Random 100 mg/dL (60-115); Potassium 3.9 mmol/L (3.3-5.1); Sodium 141 mmol/L (135-145); Total Protein 7.2 g/dL (6.5-8.0)
== END 2023-04-10 14:16 | disposition home or self-care (01) ==
LOC: HO.LAB 14:15
PROVIDERS: Visit Provider Student in an Organized Health Care Education/Training Program
DX: M35.3 Polymyalgia rheumatica (principal)
CPT/HCPCS: 36415; 80053; 85025; 85652; 86140

== ENCOUNTER 2023-04-11 08:44 | Outpatient (AMB) | payer BC, SELFPAY ==
[2023-04-11 08:54] VITALS: BP 122/66; PULSE 73; O2SAT 95; BMI 26.3
--- NOTE | 2023-04-11 08:54 | A.OFFVIS_ITS ---
Intake Vital Signs 04/11/23 08:54 Height 5 ft 6 in Weight 162 lb 11.218 oz BMI 26.3 BP 122/66 Blood Pressure Location Rt brachial Pulse 73 Pulse Source Pulse Oximeter Pulse Oximetry (%) 95 Oxygen Delivery Method Room Air Intake Visit Reasons: PMR/RA Intake Note: Pt last seen 01/31/23 presents today for follow up and to discuss treatment. Currently taking 10mg prednisone. Reports she is under some stress due to spouse's surgery Supervisor Filling And Packing Required: No Accompanied by: Self / Same As Patient Allergies codeine Allergy (Unknown, Verified 04/11/23 09:01) Unknown naproxen Allergy (Unknown, Verified 04/11/23 09:01) Itching Medication List - Last Reconciled 04/11/23 by Vi Peters MD cholecalciferol (vitamin D3) 50 mcg PO DAILY estradiol 0.01%(0.1mg/gram) 1 appl vaginal QWEEK glucosamine HCl 1 cap PO DAILY magnesium oxide 500 mg PO DAILY multivitamin 1 tab PO DAILY omega 3-yaf-qep-fish oil 60-90-500 mg (Fish Oil) 1 cap PO DAILY prednisone 12.5 mg (5 x 2.5 mg) PO DAILY NS HPI HPI Comments History of Present Illness Details 57-year-old female with PMR/RA returns f or follow-up. She is on prednisone 10 mg daily. She feels fairly well overall but continues to have generalized stiffness, generally worse in the morning and last a few hours. It mostly affects her shoulders and thighs. Initial history: This is a 57-year-old female who presents for evaluation of generalized stiffness. Five months ago patient started having stiffness of her thighs and shoulders, usually worse in the morning and when getting up after sit ting down for some time, she was evaluated by her PCP and labs were done including ASIYA, CPK which were negative. ESR was initially 34 then normalized to 17. She was evaluated by a neurologist and had EMG/NCV of all 4 extremities which were unremarkable with no neuropathic or myopathic process. Patient read up on her symptoms online and thought that she likely had PMR. She has been taking ibuprofen 800 mg nightly as well as tizanidine nightly. She borrowed the medications from her friends. She feels that they are helping. She denies any weight changes, fevers, skin rashes. Denies any Raynaud's. No history of DVT/PE. She she has no history of abortions or miscarriages PFSH Medical History Weakness Muscle pain Cervicalgia Anxiety Surgical History H/O: hysterectomy Hx of vaginal surgery Hx of eye surgery Family History Mother Diabetes Hepatitis Father Diabetes Cerebrovascular accident (CVA) Social History Alcohol intake: current Alcohol intake frequency: a few times a month Patient Tobacco Use Status: Former Tobacco user e-Cigarette/Vaping Use: Currently Using Substance Use Type: Marijuana Physical Exam Vital Signs: Last Vital Signs Pulse 73 04/11/23 08:54 BP 122/66 04/11/23 08:54 Pulse Ox 95 04/11/23 08:54 Oxygen Delivery Method Room Air 04/11/23 08:54 BMI result Body Mass Index 26.3 Const Other: Minimal early perez facies General: cooperative, healthy appearing and comfortable Nutritional Appearance: average body habitus Orientation/consciousness: patient oriented x3 Limitations: no limitations HEENT Head: Yes normocephalic and Yes atraumatic Resp Effort & Inspection: normal respiratory effort and able to speak in complete sentences Auscultation: clear to auscultation bilaterally Cardio Rate: regular rate Rhythm: regular rhythm GI Inspection: No distended Palpation (GI): Soft to palpation and nontender Skin General skin exam: no rashes or lesions noted Neuro General: patient oriented x3 Extrem Other: Mild osteoarthritic changes of both hands with no active synovitis Normal nailfold capillaroscopy Normal range of motion of both shoulders, minimal pain at maximum abduction Negative rotator cuff provocative maneuvers bilaterally Negative speed's test bilateral Bilateral knee crepitus Proximal muscle strength 5/5 both upper and lower extremities Results Reviewed Results Reviewed: XR/XR knee RT 4V IMPRESSION: Left knee: AP, tunnel, lateral and 2 sunrise views of the left knee. Tiny posterior patellar and medial marginal osteophytes. No significant joint effusion. Faint small anterior superior patellar spur. Mild medial joint space narrowing. Focal irregular, sclerotic lesion measuring 2.0 x 1.5 cm, along the distal medial diametaphysis of the posterior left femur, possibly a chondroid lesion. 1. Mild degenerative changes in the bilateral knees. 2. Focal possibly chondroid lesion along the distal posterior medial diametaphysis of the left femur. Correlation with clinical exam as well as orthopedic consultation and possible MRI recommended to determine further management. 3. Mild degenerative changes in the bilateral shoulders. This study was presented today 11/29/2022 at 9:30 AM for interpretation. PSA staff will provide results to referring provider at this time. Dictated By: Sweetie Cantrell MD Signed By: <Electronically signed by Sweetie Cantrell MD in OV> 11/29/22 [facility] RADIOLOGIC EXAMINATION FEMUR MINIMUM 2 VIEWS Exam Date: 03/09/2022 12:04 PM Ordering Diagnosis: Enchondroma ? LEFT FEMUR-4 VIEWS ? HISTORY: Enchondroma. ? PRIOR: MRI LEFT KNEE 06/20/2016. LEFT KNEE 06/10/2016. ? FINDINGS: 1.6 x 1.7 x 2.1 cm enchondroma of the medial aspect of the medial femoral condyle is unchanged. ? There is no fracture or dislocation. ? The left hip joint and left knee joint are unremarkable. ? IMPRESSION IMPRESSION: Stable 1.6 x 1.7 x 2.1 cm enchondroma of the medial femoral condyle. MRI ANY JT LOW EXTREM W/WO CONTRAST Exam Date: 06/20/2016 9:59 AM Ordering Diagnosis: Abnormal x-ray examinationLeft knee pain, unspecified chronicity ? History: Left knee pain. Distal femoral lesion on plain films. ? Left knee MRI with gadolinium enhancement: A departmental standard gadolinium enhanced knee MRI protocol was used. 7 mL of Magnevist were given for IV contrast. ? FINDINGS: There is a 2.0 x 1.5 x 1.4 cm predominantly high T2 signal intensity fairly circumscribed lesion in the medial aspect of the medial femoral condyle corresponding to the abnormality seen on plain films dated 06/10/2016. It abuts the cortex medially and is distal metaphyseal in location. It contains numerous floccular low to intermediate signal intensity foci. Enhancement is almost entirely peripheral. The appearance is typical for an enchondroma. There is little or no no endosteal scalloping. There are no other additional features to suggest chondrosarcoma. If the patient has pain specifically related to this area, the possibility of chondrosarcoma is increased. A healed or healing bone infarct could conceivably have this configuration but is less likely. The level of confidence the same mac tommy between enchondroma and chondrosarcoma given these characteristics as greater than 95% but not 100%. Correlation with nuclear medicine bone scan has the potential to increase the confidence of the diagnosis. Plain film follow-up is recommended, initially in 3-6 months. ? The menisci, ACL, PCL and collateral ligaments are intact. There are no appreciable cartilage defects or degenerative changes. There is a very small Vazquez's cyst. There is an additional tiny popliteal cyst posterior to the lateral joint compartment. It is probably related to the proximal tibial and fibular articulation. ? IMPRESSION: Findings probably representing an enchondroma in the distal femur. If symptoms are not referable to this lesion, the possibility of chondrosarcoma is extremely remote. If this does correspond to the patient's symptomatic area the likelihood of chondrosarcoma increase is somewhat but is still unlikely. Nuclear medicine bone scan has a potential to increase the degree of confidence in the diagnosis. 3-6 month plain film follow-up is recommended. Assessment & Plan Assessment & Plan (1) PMR (polymyalgia rheumatica): Code(s): M35.3 - Polymyalgia rheumatica Plan: This is a 57-year-old female who presents for evaluation of 4-5 months history of bilateral shoulder and thigh stiffness. Labs showed mildly elevated ESR at 38 that trended down to 17 with ibuprofen then came back up again to 38, CRP was significantly elevated. She has a positive anti CCP antibody Patient is currently on prednisone 10 mg daily. Continues to have generalized morning stiffness of her shoulders and thighs. Continues to have elevated CRP. She is starting to have facies. Will need to add a DMARD. Discussed risks and benefits of methotrexate. Patient agreed to proceed. Start methotrexate 15 mg weekly plus folic acid 1 mg daily Labs before next visit in 2 months (2) Monoclonal gammopathies: Code(s): D47.2 - Monoclonal gammopathy Plan: Follows up with Hematology (3) Enchondroma of femur: Code(s): D16.20 - Benign neoplasm of long bones of unspecified lower limb Qualifiers: Laterality: left Qualified Code(s): D16.22 - Benign neoplasm of long bones of left lower limb Plan: Size has been stable since 2017. This is likely a benign lesion (4) correction methotrexate user: Code(s): Z79.631 - correction (current) use of antimetabolite agent Plan: Monitor safety labs Plan I spent 26 minutes reviewing patient's chart, evaluating patient, ordering diagnostic workup, counseling patient and documenting in the chart Orders: Orders Complete Blood Count Auto Diff 2 Months M35.3 - Polymyalgia rheumatica Comprehensive Met. 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
== END 2023-04-11 09:24 | disposition home or self-care (01) ==
LOC: HO.RHE 08:44
PROVIDERS: PCP Internal Medicine; Visit Provider Student in an Organized Health Care Education/Training Program
DX: M35.3 Polymyalgia rheumatica (principal); D47.2 Monoclonal gammopathy; D16.22 Benign neoplasm of long bones of left lower limb; Z79.631 Long term (current) use of antimetabolite agent
CPT/HCPCS: 99214

== ENCOUNTER → 2023-04-11 08:44 | Outpatient (BNVA) | payer BC, SELFPAY | PROVIDERS: PCP Internal Medicine; Visit Provider Student in an Organized Health Care Education/Training Program ==

== ENCOUNTER 2023-06-21 12:47 | Outpatient (AMB) | payer BC, SELFPAY ==
--- NOTE | 2023-06-21 12:50 | A.OFFVIS_ITS ---
Vital Signs 06/21/23 12:56 Height 5 ft 6 in Weight 166 lb 3.657 oz BMI 26.8 BP 122/70 Blood Pressure Location Rt brachial Position Sitting Pulse 73 Pulse Source Pulse Oximeter Pulse Oximetry (%) 95 Oxygen Delivery Method Room Air Intake Visit Reasons: RA/PMR Intake Note: Patient last seen 04/11/23 presents today for follow up and test results. Would like to discuss tapering prednisone Information Technology Director Required: No Accompanied by: Self / Same As Patient Allergies codeine Allergy (Unknown, Verified 06/21/23 12:57) Unknown naproxen Allergy (Unknown, Verified 06/21/23 12:57) Itching Medication List - Last Reconciled 06/21/23 by Vi Peters MD cholecalciferol (vitamin D3) 50 mcg PO DAILY estradiol 0.01%(0.1mg/gram) 1 appl vaginal QWEEK folic acid 1 mg PO DAILY glucosamine HCl 1 cap PO DAILY magnesium oxide 500 mg PO DAILY methenamine hippurate 1 g PO BID methotrexate sodium 15 mg (6 x 2.5 mg) PO QWEEK multivitamin 1 tab PO DAILY omega 1-msk-ubw-fish oil 60-90-500 mg (Fish Oil) 1 cap PO DAILY prednisone 10 mg (4 x 2.5 mg) PO DAILY NS HPI Comments Details: 57-year-old female with PMR/RA returns for follow-up. Last visit patient self reduced her prednisone to 8.75 mg daily and she had a flare so she bumped it back up to 10 mg. She started methotrexate 15 mg weekly after last visit about 10 weeks ago and she noticed general improvement in her overall stiffness. Not had any swollen joints. She has been on 8.75 mg of prednisone for the last 2 weeks without flaring. She had an episode of sciatica like pain that radiated from her right buttock into her right leg that of resolved with stretching. She would like to taper prednisone due to changes in her face. Initial history: This is a 57-year-old female who presents for evaluation of generalized stiffness. Five months ago patient started having stiffness of her thighs and shoulders, usually worse in the morning and when getting up after sitting down for some time, she was evaluated by her PCP and labs were done including ASIYA, CPK which were negative. ESR was initially 34 then normalized to 17. She was evaluated by a neurologist and had EMG/NCV of all 4 extremities which were unremarkable with no neuropathic or myopathic process. Patient read up on her symptoms online and thought that she likely had PMR. She has been taking ibuprofen 800 mg nightly as well as tizanidine nightly. She borrowed the medications from her friends. She feels that they are helping. She denies any weight changes, fevers, skin rashes. Denies any Raynaud's. No history of DVT/PE. She she has no history of abortions or miscarriages PFSH Medical History Weakness Muscle pain Cervicalgia Anxiety Surgical History H/O: hysterectomy Hx of vaginal surgery Hx of eye surgery Family History Mother Diabetes Hepatitis Father Diabetes Cerebrovascular accident (CVA) Social History Alcohol intake: current Alcohol intake frequency: a few times a month Patient Tobacco Use Status: Former Tobacco user e-Cigarette/Vaping Use: Currently Using Substance Use Type: Marijuana Review of Systems [facility] [place] Denies arthralgias and Reports stiffness Physical Exam Vital Signs: Last Vital Signs Pulse 73 06/21/23 12:56 BP 122/70 06/21/23 12:56 Pulse Ox 95 06/21/23 12:56 Oxygen Delivery Method Room Air 06/21/23 12:56 BMI result Body Mass Index 26.8 Const Other: Minimal early perez facies General: cooperative, healthy appearing and comfortable Nutritional Appearance: average body habitus Orientation/consciousness: patient oriented x3 Limitations: no limitations HEENT Head: Yes normocephalic and Yes atraumatic Resp Effort & Inspection: normal respiratory effort and able to speak in complete sentences Auscultation: clear to auscultation bilaterally Cardio Rate: regular rate Rhythm: regular rhythm GI Inspection: No distended Palpation (GI): Soft to palpation and nontender Skin General skin exam: no rashes or lesions noted Neuro General: patient oriented x3 Extrem Other: Mild osteoarthritic changes of both hands with no active synovitis Normal nailfold capillaroscopy Normal range of motion of both shoulders, minimal pain at maximum abduction Negative rotator cuff provocative maneuvers bilaterally Negative speed's test bilateral Bilateral knee crepitus Proximal muscle strength 5/5 both upper and lower extremities Results Reviewed Results Reviewed: XR/XR knee RT 4V IMPRESSION: Left knee: AP, tunnel, lateral and 2 sunrise views of the left knee. Tiny posterior patellar and medial marginal osteophytes. No significant joint effusion. Faint small anterior superior patellar spur. Mild medial joint space narrowing. Focal irregular, sclerotic lesion measuring 2.0 x 1.5 cm, along the distal medial diametaphysis of the posterior left femur, possibly a chondroid lesion. 1. Mild degenerative changes in the bilateral knees. 2. Focal possibly chondroid lesion along the distal posterior medial diametaphysis of the left femur. Correlation with clinical exam as well as orthopedic consultation and possible MRI recommended to determine further management. 3. Mild degenerative changes in the bilateral shoulders. This study was presented today 11/29/2022 at 9:30 AM for interpretation. PSA staff will provide results to referring provider at this time. Dictated By: Sweetie Cantrell MD Signed By: <Electronically signed by Sweetie Cantrell MD in OV> 11/29/22 [facility] RADIOLOGIC EXAMINATION FEMUR MINIMUM 2 VIEWS Exam Date: 03/09/2022 12:04 PM Ordering Diagnosis: Enchondroma ? LEFT FEMUR-4 VIEWS ? HISTORY: Enchondroma. ? PRIOR: MRI LEFT KNEE 06/20/2016. LEFT KNEE 06/10/2016. ? FINDINGS: 1.6 x 1.7 x 2.1 cm enchondroma of the medial aspect of the medial femoral condyle is unchanged. ? There is no fracture or dislocation. ? The left hip joint and left knee joint are unremarkable. ? IMPRESSION IMPRESSION: Stable 1.6 x 1.7 x 2.1 cm enchondroma of the medial femoral condyle. MRI ANY JT LOW EXTREM W/WO CONTRAST Exam Date: 06/20/2016 9:59 AM Ordering Diagnosis: Abnormal x-ray examinationLeft knee pain, unspecified chronicity ? History: Left knee pain. Distal femoral lesion on plain films. ? Left knee MRI with gadolinium enhancement: A departmental standard gadolinium enhanced knee MRI protocol was used. 7 mL of Magnevist were given for IV contrast. ? FINDINGS: There is a 2.0 x 1.5 x 1.4 cm predominantly high T2 signal intensity fairly circumscribed lesion in the medial aspect of the medial femoral condyle corresponding to the abnormality seen on plain films dated 06/10/2016. It abuts the cortex medially and is distal metaphyseal in location. It contains numerous floccular low to intermediate signal intensity foci. Enhancement is almost entirely peripheral. The appearance is typical for an enchondroma. There is little or no no endosteal scalloping. There are no other additional features to suggest chondrosarcoma. If the patient has pain specifically related to this area, the possibility of chondrosarcoma is increased. A healed or healing bone infarct cou ld conceivably have this configuration but is less likely. The level of confidence the same machine between enchondroma and chondrosarcoma given these characteristics as greater than 95% but not 100%. Correlation with nuclear medicine bone scan has the potential to increase the confidence of the diagnosis. Plain film follow-up is recommended, initially in 3-6 months. ? The menisci, ACL, PCL and collateral ligaments are intact. There are no appreciable cartilage defects or degenerative changes. There is a very small Vazquez's cyst. There is an additional tiny popliteal cyst posterior to the lateral joint compartment. It is probably related to the proximal tibial and fibular articulation. ? IMPRESSION: Findings probably representing an enchondroma in the distal femur. If symptoms are not referable to this lesion, the possibility of chondrosarcoma is extremely remote. If this does correspond to the patient's symptomatic area the likelihood of chondrosarcoma increase is somewhat but is still unlikely. Nuclear medicine bone scan has a potential to increase the degree of confidence in the diagnosis. 3-6 month plain film follow-up is recommended. Assessment & Plan Assessment & Plan (1) PMR (polymyalgia rheumatica): Comment: likely sero+ve RA MTX 04/2023 effective Code(s): M35.3 - Polymyalgia rheumatica Category: Medical Plan: This is a 57-year-old female who presents for evaluation of 4-5 months history of bilateral shoulder and thigh stiffness. Labs showed mildly elevated ESR at 38 that trended down to 17 with ibuprofen then came back up again to 38, CRP was significantly elevated. She has a positive anti CCP antibody Her clinical picture is more consistent with RA. Last visit methotrexate was started at 15 mg weekly with improvement. Inflammatory markers almost normal now. Increase methotrexate to 20 mg weekly split dose Reduce prednisone to 7.5 mg daily for 2 weeks then 5 mg daily. Patient will reach out to me over the portal over the next few weeks to see whether we can further tapered the prednisone Labs before next visit in 3 months (2) Monoclonal gammopathies: Code(s): D47.2 - Monoclonal gammopathy Category: Medical Plan: Follows up with Hematology (3) Enchondroma of femur: Code(s): D16.20 - Benign neoplasm of long bones of unspecified lower limb Category: Medical Qualifiers: Laterality: left Qualified Code(s): D16.22 - Benign neoplasm of long bones of left lower limb Plan: Size has been stable since 2017. This is likely a benign lesion (4) penitentiary methotrexate user: Code(s): Z79.631 - obstetrical anesthesiologist (current) use of antimetabolite agent Category: Medical Plan: Monitor safety labs Plan I spent 26 minutes reviewing patient's chart, evaluating patient, ordering diagnostic workup, counseling patient and documenting in the chart Orders: Orders Complete Blood Count Auto Diff 3 Months Z79.631 - obstetrical anesthesiologist (current) use of antimetabolite agent Comprehensive Met. Panel 3 Months Z79.631 - obstetrical anesthesiologist (current) use of antimetabolite agent C Reactive Protein 3 Months Z79.631 - penitentiary (current) use of antimetabolite agent Erythrocyte Sedimentation Rate 3 Months Z79.631 - obstetrical anesthesiologist (current) use of antimetabolite agent Medications: Changed From methotrexate sodium 15 mg (6 x 2.5 mg) PO QWEEK 48 tabs 0RF To methotrexate sodium Split dose into 4 tabs twice 12 hours apart 20 mg (8 x 2.5 mg) PO QWEEK 96 tabs 0RF Coding Level of Care Code Est Pt Level 4 (16374) Diagnoses PMR (polymyalgia rheumatica) M35.3 Monoclonal gammopathies D47.2 Enchondroma of left femur D16.22 Laterality: left penitentiary methotrexate user Z79.631
[2023-06-21 12:56] VITALS: BP 122/70; PULSE 73; O2SAT 95; BMI 26.8
== END 2023-06-21 13:19 | disposition home or self-care (01) ==
PROVIDERS: PCP Internal Medicine; Referring Provider Internal Medicine; Visit Provider Student in an Organized Health Care Education/Training Program
DX: M35.3 Polymyalgia rheumatica (principal); D47.2 Monoclonal gammopathy; D16.22 Benign neoplasm of long bones of left lower limb; Z79.631 Long term (current) use of antimetabolite agent
CPT/HCPCS: 99214

== ENCOUNTER → 2023-06-21 12:47 | Outpatient (BNVA) | payer BC, SELFPAY | PROVIDERS: PCP Internal Medicine; Visit Provider Student in an Organized Health Care Education/Training Program ==

== ENCOUNTER 2023-09-21 14:20 | Outpatient (AMB) | payer BC, SELFPAY ==
--- NOTE | 2023-09-21 14:21 | MHC.OFFVIS ---
Vital Signs 09/21/23 14:25 Height 5 ft 6 in Weight 167 lb 1.766 oz BMI 27.0 BP 124/70 Blood Pressure Location Lt brachial Position Sitting Pulse 81 Pulse Source Pulse Oximeter Pulse Oximetry (%) 97 Oxygen Delivery Method Room Air Intake Visit Reasons: RA/PMR Intake Note: Patient presents for RA. Allergies codeine Allergy (Unknown, Verified 09/21/23 14:24) Unknown naproxen Allergy (Unknown, Verified 09/21/23 14:24) Itching Medication List - Last Reconciled 09/21/23 by Vi Peters MD cholecalciferol (vitamin D3) 50 mcg PO DAILY estradiol 0.01%(0.1mg/gram) 1 appl vaginal QWEEK folic acid 1 mg PO DAILY glucosamine HCl 1 cap PO DAILY magnesium oxide 500 mg PO DAILY methenamine hippurate 1 g PO BID methotrexate sodium 20 mg (8 x 2.5 mg) PO QWEEK multivitamin 1 tab PO DAILY omega 0-zab-cqo-fish oil 60-90-500 mg (Fish Oil) 1 cap PO DAILY prednisone 5 mg (2 x 2.5 mg) PO DAILY NS HPI Comments Details: 57-year-old female with PMR/RA returns for follow-up. She is on methotrexate 20 mg weekly and prednisone 2.5 mg daily. Been lowering her prednisone by about 1.25 mg. She states that she continues to have discomfort and stiffness of her shoulders and pain and stiffness in her thigh/hip/glute area. Nuris worse when she stands up after sitting down for some time. She has not had any swollen joints. She states that 40 of her symptoms are nocturnal and when she wakes up. She has been taking ibuprofen 400 mg nightly which helped significantly. Initial history: This is a 57-year-old female who presents for evaluation of generalized stiffness. Five months ago patient started having stiffness of her thighs and shoulders, usually worse in the morning and when getting up after sitting down for some time, she was evaluated by her PCP and labs were done including ASIYA, CPK which were negative. ESR was initially 34 then normalized to 17. She was evaluated by a neurologist and had EMG/NCV of all 4 extremities which were unremarkable with no neuropathic or myopathic process. Patient read up on her symptoms online and thought that she likely had PMR. She has been taking ibuprofen 800 mg nightly as well as tizanidine nightly. She borrowed the medications from her friends. She feels that they are helping. She denies any weight changes, fevers, skin rashes. Denies any Raynaud's. No history of DVT/PE. She she has no history of abortions or miscarriages [facility] Medical History Weakness Muscle pain Cervicalgia Anxiety Surgical History H/O: hysterectomy Hx of vaginal surgery Hx of eye surgery Family History Mother Diabetes Hepatitis Father Diabetes Cerebrovascular accident (CVA) Social History Alcohol intake: current Alcohol intake frequency: a few times a month Patient Tobacco Use Status: Former Tobacco user e-Cigarette/Vaping Use: Currently Using Substance Use Type: Marijuana Female Reproductive History Menstrual Total pregnancies: 2 Full term: 2 Review of Systems Musc Reports arthralgias, Denies joint swelling and Reports stiffness Physical Exam Vital Signs: Last Vital Signs Pulse 81 09/21/23 14:25 BP 124/70 09/21/23 14:25 Pulse Ox 97 09/21/23 14:25 Oxygen Delivery Method Room Air 09/21/23 14:25 BMI result Body Mass Index 27.0 Const Other: Minimal early perez facies General: cooperative, healthy appearing and comfortable Nutritional Appearance: average body habitus Orientation/consciousness: patient oriented x3 Limitations: no limitations HEENT Head: Yes normocephalic and Yes atraumatic Resp Effort & Inspection: normal respiratory effort and able to speak in complete sentences Auscultation: clear to auscultation bilaterally Cardio Rate: regular rate Rhythm: regular rhythm GI Inspection: No distended Palpation (GI): Soft to palpation and nontender Skin General skin exam: no rashes or lesions noted Neuro General: patient oriented x3 Extrem Other: Mild osteoarthritic changes of both hands with no active synovitis Normal nailfold capillaroscopy Normal range of motion of both shoulders, minimal pain at maximum abduction Positive empty can test bilaterally Negative speed's test bilateral Bilateral knee crepitus Proximal muscle strength 5/5 both upper and lower extremities Results Reviewed Results Reviewed: XR/XR knee RT 4V IMPRESSION: Left knee: AP, tunnel, lateral and 2 sunrise views of the left knee. Tiny posterior patellar and medial marginal osteophytes. No significant joint effusion. Faint small anterior superior patellar spur. Mild medial joint space narrowing. Focal irregular, sclerotic lesion measuring 2.0 x 1.5 cm, along the distal medial diametaphysis of the posterior left femur, possibly a chondroid lesion. 1. Mild degenerative changes in the bilateral knees. 2. Focal possibly chondroid lesion along the distal posterior medial diametaphysis of the left femur. Correlation with clinical exam as well as orthopedic consultation and possible MRI recommended to determine further management. 3. Mild degenerative changes in the bilateral shoulders. This study was presented today 11/29/2022 at 9:30 AM for interpretation. PSA staff will provide results to referring provider at this time. Dictated By: Sweetie Cantrell MD Signed By: <Electronically signed by Sweetie Cantrell MD in OV> 11/29/22 [facility] RADIOLOGIC EXAMINATION FEMUR MINIMUM 2 VIEWS Exam Date: 03/09/2022 12:04 PM Ordering Diagnosis: Enchondroma ? LEFT FEMUR-4 VIEWS ? HISTORY: Enchondroma. ? PRIOR: MRI LEFT KNEE 06/20/2016. LEFT KNEE 06/10/2016. ? FINDINGS: 1.6 x 1.7 x 2.1 cm enchondroma of the medial aspect of the medial femoral condyle is unchanged. ? There is no fracture or dislocation. ? The left hip joint and left knee joint are unremarkable. ? IMPRESSION IMPRESSION: Stable 1.6 x 1.7 x 2.1 cm enchondroma of the medial femoral condyle. MRI ANY JT LOW EXTREM W/WO CONTRAST Exam Date: 06/20/2016 9:59 AM Ordering Diagnosis: Abnormal x-ray examinationLeft knee pain, unspecified chronicity ? History: Left knee pain. Distal femoral lesion on plain films. ? Left knee MRI with gadolinium enhancement: A departmental standard gadolinium enhanced knee MRI protocol was used. 7 mL of Magnevist were given for IV contrast. ? FINDINGS: There is a 2.0 x 1.5 x 1.4 cm predominantly high T2 signal intensity fairly circumscribed lesion in the medial aspect of the medial femoral condyle corresponding to the abnormality seen on plain films dated 06/10/2016. It abuts the cortex medially and is distal metaphyseal in location. It contains numerous floccular low to intermediate signal intensity foci. Enhancement is almost entirely peripheral. The appearance is typical for an enchondroma. There is little or no no endosteal scalloping. There are no other additional features to suggest chondrosarcoma. If the patient has pain specifically related to this area, the possibility of chondrosarcoma is increased. A healed or healing bone infarct could conceivably have this configuration but is less likely. The level of confidence the same machine between enchondroma and chondrosarcoma given these characteristics as greater than 95% but not 100%. Correlation with nuclear medicine bone scan has the potential to increase the confidence of the diagnosis. Plain film follow-up is recommended, initially in 3-6 months. ? The menisci, ACL, PCL and collateral ligaments are intact. There are no appreciable cartilage defects or degenerative changes. There is a very small Vazquez's cyst. There is an additional tiny popliteal cyst posterior to the lateral joint compartment. It is probably related to the proximal tibial and fibular articulation. ? IMPRESSION: Findings probably representing an enchondroma in the distal femur. If symptoms are not referable to this lesion, the possibility of chondrosarcoma is extremely remote. If this does correspond to the patient's symptomatic area the likelihood of chondrosarcoma increase is somewhat but is still unlikely. Nuclear medicine bone scan has a potential to increase the degree of confidence in the diagnosis. 3-6 month plain film follow-up is recommended. Assessment & Plan Assessment & Plan (1) PMR (polymyalgia rheumatica): Comment: ++CCP Ab, possible seropositive RA MTX 04/2023 partially effective Code(s): M35.3 - Polymyalgia rheumatica Category: Medical Plan: This is a 57-year-old female who presents for evaluation of 4-5 months history of bilateral shoulder and thigh stiffness. Labs showed mildly elevated ESR at 38 that trended down to 17 with ibuprofen then came back up again to 38, CRP was significantly elevated. She has a positive anti CCP antibody She is on methotrexate 20 mg weekly and prednisone 2.5 mg daily. She has not had any side effects related to methotrexate. She continues to have generalized pain and stiffness of her shoulder and thigh/hip/glute area I had a long conversation with patient today regarding her condition and its management. Patient has gained weight and become somewhat cushingoid on prednisone. We should stopped the prednisone. Reduce prednisone to 1.25 mg daily for 3 weeks then stop prednisone Increase methotrexate to 25 mg weekly split dose Today we discussed adding Kevzara. Patient will think about it. Advised patient to use Advil 400 mg nightly only as needed. Discussed long-term side effects of NSAIDs Labs before next visit in 2 months (2) Monoclonal gammopathies: Code(s): D47.2 - Monoclonal gammopathy Category: Medical Plan: Follows up with Hematology (3) Enchondroma of femur: Code(s): D16.20 - Benign neoplasm of long bones of unspecified lower limb Category: Medical Qualifiers: Laterality: left Qualified Code(s): D16.22 - Benign neoplasm of long bones of left lower limb Plan: Size has been stable since 2017. This is likely a benign lesion (4) detention methotrexate user: Code(s): Z79.631 - detention (current) use of antimetabolite agent Category: Medical Plan: Monitor safety labs Plan I spent 46 minutes reviewing patient's chart, evaluating patient, ordering diagnostic workup, counseling patient and documenting in the chart Orders: Orders Complete Blood Count Auto Diff 2 Months M35.3 - Polymyalgia rheumatica, Z79.631 - detention (current) use of antimetabolite agent Erythrocyte Sedimentation Rate 2 Months M35.3 - Polymyalgia rheumatica, Z79.631 - detention (current) use of antimetabolite agent Comprehensive Met. Panel 2 Months M35.3 - Polymyalgia rheumatica, Z79.631 - terminal system operator (current) use of antimetabolite agent C Reactive Protein 2 Months M35.3 - Polymyalgia rheumatica, Z79.631 - detention (current) use of antimetabolite agent Medications: Changed From methotrexate sodium Split dose into 4 tabs twice 12 hours apart 20 mg (8 x 2.5 mg) PO QWEEK 96 tabs 0RF To methotrexate sodium Split dose into 5 tabs twice 12 hours apart 25 mg (10 x 2.5 mg) PO QWEEK 120 tabs 0RF Coding Level of Care Code Est Pt Level 5 (32593) Diagnoses PMR (polymyalgia rheumatica) M35.3 Monoclonal gammopathies D47.2 Enchondroma of left femur D16.22 Laterality: left terminal system operator methotrexate user Z79.631
[2023-09-21 14:25] VITALS: BP 124/70; PULSE 81; O2SAT 97; BMI 27.0
== END 2023-09-21 15:14 | disposition home or self-care (01) ==
PROVIDERS: PCP Internal Medicine; Visit Provider Student in an Organized Health Care Education/Training Program
DX: M35.3 Polymyalgia rheumatica (principal); D47.2 Monoclonal gammopathy; D16.22 Benign neoplasm of long bones of left lower limb; Z79.631 Long term (current) use of antimetabolite agent
CPT/HCPCS: 99215

== ENCOUNTER → 2023-09-21 14:20 | Outpatient (BNVA) | payer BC, SELFPAY | PROVIDERS: PCP Internal Medicine; Visit Provider Student in an Organized Health Care Education/Training Program ==

== ENCOUNTER 2023-12-01 15:05 | Outpatient (AMB) | payer BC, SELFPAY ==
--- NOTE | 2023-12-01 15:06 | MHC.OFFVIS ---
Vital Signs 12/01/23 15:11 Height 5 ft 6 in Weight 170 lb 6.677 oz BMI 27.5 BP 115/62 Blood Pressure Location Rt brachial Position Sitting Pulse 70 Pulse Source Pulse Oximeter Pulse Oximetry (%) 97 Oxygen Delivery Method Room Air Intake Visit Reasons: PMR/CM Intake Note: Patient presents for PMR. Allergies codeine Allergy (Unknown, Verified 12/01/23 15:09) Unknown naproxen Allergy (Unknown, Verified 12/01/23 15:09) Itching methotrexate Adverse Reaction (Intermediate, Verified 12/01/23 16:45) GI upset Medication List - Last Reconciled 12/01/23 by Vi Peters MD cholecalciferol (vitamin D3) 50 mcg PO DAILY estradiol 0.01%(0.1mg/gram) 1 appl vaginal QWEEK glucosamine HCl 2 caps PO DAILY magnesium oxide 500 mg PO DAILY methenamine hippurate 1 g PO BID multivitamin 1 tab PO DAILY omega 8-elb-jri-fish oil 60-90-500 mg (Fish Oil) 1 cap PO DAILY prednisone 5 mg (2 x 2.5 mg) PO DAILY NS HPI Comments Details: 57-year-old female with PMR/RA returns for follow-up. After last visit when patient went down to prednisone 1.25 mg daily she had a flare-up of significant shoulder and hip stiffness. Methotrexate was increased to 25 mg weekly at that time, at that time she was having significant GI side effects. She contacted the office and advised patient to increase her prednisone back to 15 mg daily for 3 weeks then reduce to 12.5 mg daily. I also asked her to taper the methotrexate down. She has been taking 12.5 mg daily of prednisone for the last month. She states that she feels normal Initial history: This is a 57-year-old female who presents for evaluation of generalized stiffness. Five months ago patient started having stiffness of her thighs and shoulders, usually worse in the morning and when getting up after sitting down for some time, she was evaluated by her PCP and labs were done including ASIYA, CPK which were negative. ESR was initially 34 then normalized to 17. She was evaluated by a neurologist and had EMG/NCV of all 4 extremities which were unremarkable with no neuropathic or myopathic process. Patient read up on her symptoms online and thought that she likely had PMR. She has been taking ibuprofen 800 mg nightly as well as tizanidine nightly. She borrowed the medications from her friends. She feels that they are helping. She denies any weight changes, fevers, skin rashes. Denies any Raynaud's. No history of DVT/PE. She she has no history of abortions or miscarriages [facility] Medical History (Updated 12/01/23 @ 16:50 by Vi Peters MD) Weakness Muscle pain Cervicalgia Anxiety Surgical History H/O: hysterectomy Hx of vaginal surgery Hx of eye surgery Family History Mother Diabetes Hepatitis Father Diabetes Cerebrovascular accident (CVA) Social History Alcohol intake: current Alcohol intake frequency: a few times a month Patient Tobacco Use Status: Former Tobacco user e-Cigarette/Vaping Use: Currently Using Substance Use Type: Marijuana Female Reproductive History Menstrual Total pregnancies: 2 Full term: 2 Review of Systems Const Reports weight gain Musc Denies arthralgias and Denies stiffness Physical Exam Vital Signs: Last Vital Signs Pulse 70 12/01/23 15:11 BP 115/62 12/01/23 15:11 Pulse Ox 97 12/01/23 15:11 Oxygen Delivery Method Room Air 12/01/23 15:11 BMI result Body Mass Index 27.5 Const Other: Minimal early perez facies General: cooperative, healthy appearing and comfortable Nutritional Appearance: average body habitus Orientation/consciousness: patient oriented x3 Limitations: no limitations HEENT Head: Yes normocephalic and Yes atraumatic Resp Effort & Inspection: normal respiratory effort and able to speak in complete sentences Auscultation: clear to auscultation bilaterally Cardio Rate: regular rate Rhythm: regular rhythm GI Inspection: No distended Palpation (GI): Soft to palpation and nontender Skin General skin exam: no rashes or lesions noted Neuro General: patient oriented x3 Extrem Other: Mild osteoarthritic changes of both hands with no active synovitis Normal nailfold capillaroscopy Normal range of motion of both shoulders, minimal pain at maximum abduction Negative speed's test bilateral Bilateral knee crepitus Proximal muscle strength 5/5 both upper and lower extremities Results Reviewed Results Reviewed: XR/XR knee RT 4V IMPRESSION: Left knee: AP, tunnel, lateral and 2 sunrise views of the left knee. Tiny posterior patellar and medial marginal osteophytes. No significant joint effusion. Faint small anterior superior patellar spur. Mild medial joint space narrowing. Focal irregular, sclerotic lesion measuring 2.0 x 1.5 cm, along the distal medial diametaphysis of the posterior left femur, possibly a chondroid lesion. 1. Mild degenerative changes in the bilateral knees. 2. Focal possibly chondroid lesion along the distal posterior medial diametaphysis of the left femur. Correlation with clinical exam as well as orthopedic consultation and possible MRI recommended to determine further management. 3. Mild degenerative changes in the bilateral shoulders. This study was presented today 11/29/2022 at 9:30 AM for interpretation. PSA staff will provide results to referring provider at this time. Dictated By: Sweetie Cantrell MD Signed By: <Electronically signed by Sweetie Cantrell MD in OV> 11/29/22 [facility] RADIOLOGIC EXAMINATION FEMUR MINIMUM 2 VIEWS Exam Date: 03/09/2022 12:04 PM Ordering Diagnosis: Enchondroma ? LEFT FEMUR-4 VIEWS ? HISTORY: Enchondroma. ? PRIOR: MRI LEFT KNEE 06/20/2016. LEFT KNEE 06/10/2016. ? FINDINGS: 1.6 x 1.7 x 2.1 cm enchondroma of the medial aspect of the medial femoral condyle is unchanged. ? There is no fracture or dislocation. ? The left hip joint and left knee joint are unremarkable. ? IMPRESSION IMPRESSION: Stable 1.6 x 1.7 x 2.1 cm enchondroma of the medial femoral condyle. MRI ANY JT LOW EXTREM W/WO CONTRAST Exam Date: 06/20/2016 9:59 AM Ordering Diagnosis: Abnormal x-ray examinationLeft knee pain, unspecified chronicity ? History: Left knee pain. Distal femoral lesion on plain films. ? Left knee MRI with gadolinium enhancement: A departmental standard gadolinium enhanced knee MRI protocol was used. 7 mL of Magnevist were given for IV contrast. ? FINDINGS: There is a 2.0 x 1.5 x 1.4 cm predominantly high T2 signal intensity fairly circumscribed lesion in the medial aspect of the medial femoral condyle corresponding to the abnormality seen on plain films dated 06/10/2016. It abuts the cortex medially and is distal metaphyseal in location. It contains numerous floccular low to intermediate signal intensity foci. Enhancement is almost entirely peripheral. The appearance is typical for an enchondroma. There is little or no no endosteal scalloping. There are no other additional features to suggest chondrosarcoma. If the patient has pain specifically related to this area, the possibility of chondrosarcoma is increased. A healed or healing bone infarct could conceivably have this configuration but is less likely. The level of confidence the same machine between enchondroma and chondrosarcoma given these characteristics as greater than 95% but not 100%. Correlation with nuclear medicine bone scan has the potential to increase the confidence of the diagnosis. Plain film follow-up is recommended, initially in 3-6 months. ? The menisci, ACL, PCL and collateral ligaments are intact. There are no appreciable cartilage defects or degenerative changes. There is a very small Vazquez's cyst. There is an additional tiny popliteal cyst posterior to the lateral joint compartment. It is probably related to the proximal tibial and fibular articulation. ? IMPRESSION: Findings probably representing an enchondroma in the distal femur. If symptoms are not referable to this lesion, the possibility of chondrosarcoma is extremely remote. If this does correspond to the patient's symptomatic area the likelihood of chondrosarcoma increase is somewhat but is still unlikely. Nuclear medicine bone scan has a potential to increase the degree of confidence in the diagnosis. 3-6 month plain film follow-up is recommended. Assessment & Plan Assessment & Plan (1) PMR (polymyalgia rheumatica): Comment: onset 11/2022 PDN throughout MTX 04/2023 DC 11/2023 ineffective and caused significant GI symptoms Code(s): M35.3 - Polymyalgia rheumatica Category: Medical Plan: This is a 58-year-old female with PMR who presents for follow-up. A few weeks ago patient flared when prednisone was tapered down, inflammatory markers were elevated. We increased her prednisone to 15 mg daily for 3 weeks. She is on prednisone 12.5 mg daily. Doing well with no active disease. She requires more than 7.5 mg daily of prednisone, she has developed side effects of prednisone including perez facies, weight gain. Methotrexate was tried as a steroid sparing agent but was ineffective and was discontinued due to significant GI side effects. Will need a different DMARD. Discussed risks and benefits of Kevzara. Patient agreed to proceed. Will start prior authorization for Kevzara Stay on prednisone 10 mg daily for 2-4 weeks then plan to taper according to response. Labs before next visit in 2 months (2) Monoclonal gammopathies: Code(s): D47.2 - Monoclonal gammopathy Category: Medical Plan: Follows up with Hematology (3) Enchondroma of femur: Code(s): D16.20 - Benign neoplasm of long bones of unspecified lower limb Category: Medical Qualifiers: Laterality: left Qualified Code(s): D16.22 - Benign neoplasm of long bones of left lower limb Plan: Size has been stable since 2017. This is likely a benign lesion (4) High risk medication use: Code(s): Z79.899 - Other [facility] (current) drug therapy Category: Medical Plan: Side effects of Kevzara were discussed with the patient in detail including increased risk of infection, demyelinating disease, reactivation of latent TB, possible increased risk of solid and skin tumors. Patient fully aware. Advised patient to seek medical care JOSIE if patient has an infection and advised patient to stop the medication until the infection is resolved. Plan I spent 26 minutes reviewing patient's chart, evaluating patient, ordering diagnostic workup, counseling patient and documenting in the chart Orders: Orders Comprehensive Met. Panel 2 Months M35.3 - Polymyalgia rheumatica C Reactive Protein 2 Months M35.3 - Polymyalgia rheumatica Erythrocyte Sedimentation Rate 2 Months M35.3 - Polymyalgia rheumatica Hepatitis A,B,C Profile 2 Months Z11.59 - Encounter for screening for other viral diseases Complete Blood Count Auto Diff 2 Months M35.3 - Polymyalgia rheumatica T Spot TB 2 Months Z11.7 - Encounter for testing for latent tuberculosis infection Medications: New Kevzara (sarilumab) 200 mg (1.14 mL) subcut Q2W 2.28 mL 2RF NS M35.3 - Polymyalgia rheumatica Coding Level of Care Code Est Pt Level 4 (08777) Complex EM visit Add On G2211 Diagnoses PMR (polymyalgia rheumatica) M35.3 Monoclonal gammopathies D47.2 Enchondroma of left femur D16.22 Laterality: left High risk medication use Z79.899
[2023-12-01 15:11] VITALS: BP 115/62; PULSE 70; O2SAT 97; BMI 27.5
== END 2023-12-01 15:47 | disposition home or self-care (01) ==
PROVIDERS: PCP Internal Medicine; Visit Provider Student in an Organized Health Care Education/Training Program
DX: M35.3 Polymyalgia rheumatica (principal); D47.2 Monoclonal gammopathy; D16.22 Benign neoplasm of long bones of left lower limb; Z79.899 Other long term (current) drug therapy
CPT/HCPCS: 99214

== ENCOUNTER → 2023-12-01 15:05 | Outpatient (BNVA) | payer BC, SELFPAY | PROVIDERS: PCP Internal Medicine; Visit Provider Student in an Organized Health Care Education/Training Program ==

== ENCOUNTER 2024-03-27 15:40 | Outpatient (AMB) | payer BC, SELFPAY ==
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
--- OUTSIDE RECORDS SUMMARY | 2024-03-27 15:42 | XMS_ITS | Encounter Summary ---
Author Organization [facility] Address [address] [place] [address] Care Team Providers Care Video Journalist Name Role Phone Johanna Crooks MD Primary Care Provider [phone] Reason for Referral * Consultation (Routine) - Authorized Specialty Diagnoses / Procedures Referred By Contac t Referred To Contact Rheumatology Diagnoses Polymyalgia rheumatica (CMS/HCC) Johanna Crooks MD [address] [place] [address] Phone: tel: fax: [facility] - Rheumatology [address] [facility] [address] [place] [address] Phone: tel: fax: Referral ID Status Reason Start Date Expiration Date Visits Requested Visits Authorized [id number] Authorized Specialty Services Required 03/19/2024 03/19/2025 1 1 Scheduling Instructions Office: [facility] Insurance: [facility] ID: [id number] Provider: Dr Tangela Wilson DOS: 03/18/2024 Visits: 8 Dx code: M35.3 Reason for Visit * Reason Onset Date Comments Referral 03/18/2024 Encounter Details Date Type Department Care Team (Late st Contact Info) Description 03/18/2024 Telephone Adult Medicine [address] [phone] Johanna Crooks MD [address] [place] [id number] Referral Social History Tobacco Use Types Packs/Day Years [...] on file Sexual Orientation Not on file documented as of this encounter Progress Notes * Johanna Crooks MD - 03/19/2024 3:01 PM EST Ref signed * Roxana Ramsey MA - 03/19/2024 2:30 PM EST Needs for insurance purposes * Brenda Childers - 03/18/2024 3:17 PM EST Please create an order for the referral Caller: Office: [facility] Insurance: [facility] ID: [id number] Provider: Dr Tangela Wilson DOS: 03/18/2024 Visits: 8 Dx code: M35.3 IMPORTANT Pls copy and paste this into the order. Otherwise, it will not be processed as an ins referral documented in this encounter Plan of Treatment Upcoming Encounters Date Type Department Care Team (Late st Contact Info) Description 06/24/2024 4:00 PM EDT Office Visit Adult Medicine [address] [phone] Neha Jeffery PA [address] [place] [address] Scheduled Referrals Name Type Priority Associated Diagnoses Order Schedule Ambulatory referral to Rheumatology Outpatient Referral Routine Polymyalgia rheumatica (CMS/HCC) 1 Occurrences starting 03/19/2024 until 03/19/2025 documented as of this encounter Visit Diagnoses Diagnosis Polymyalgia rheumatica (CMS/HCC)- Primary Polymyalgia rheumatica documented in this encounter Care Teams Video Journalist Relationship Specialty Start Date End Date Johanna Crooks MD PCP - General 03/07/22 documented as of this encounter
--- NOTE | 2024-03-27 15:46 | MHC.OFFVIS ---
Vital Signs 03/27/24 15:54 Height 5 ft 6 in Weight 166 lb 3.657 oz BMI 26.8 BP 140/80 H Blood Pressure Location Rt brachial Pulse 65 Pulse Source Pulse Oximeter Pulse Oximetry (%) 98 Oxygen Delivery Method Room Air Intake Visit Reasons: PMR/CM Intake Note: Patient presents for PMR. Allergies codeine Allergy (Unknown, Verified 03/27/24 15:53) Unknown naproxen Allergy (Unknown, Verified 03/27/24 15:53) Itching methotrexate Adverse Reaction (Intermediate, Verified 03/27/24 15:53) GI upset Medication List - Last Reconciled 03/27/24 by Tangela Wilson MD cholecalciferol (vitamin D3) 50 mcg PO DAILY estradiol 0.01%(0.1mg/gram) 1 appl vaginal QWEEK glucosamine HCl 2 caps PO DAILY Kevzara (sarilumab) 200 mg (1.14 mL) subcut Q2W NS magnesium oxide 500 mg PO DAILY methenamine hippurate 1 g PO BID multivitamin 1 tab PO DAILY omega [id number] oil 60-90-500 mg (Fish Oil) 1 cap PO DAILY prednisone 2.5 mg PO DAILY NS prednisone 3 mg (3 x 1 mg) PO DAILY HPI Comments Details: Patient is a 58-year-old female with polymyalgia rheumatica here today for follow up Interval History: Patient last seen 12/01/[address] Peters. At that time she was noted to have a flare of her disease after she decreased her Prednisone. Patient was also on methotrexate at that time but given the significant GI side effects she was not able to take a full dose and she continued to require more than some with the mg daily of prednisolone. She was started on Kevzara as a steroid sparing agent. Today patient notes that since starting the Kevzara she has been able to slowly taper her prednisone and is currently on 7.5 mg and doing well Rheumatologic History: PMR onset 11/2022 PDN throughout MTX 04/2023 DC 11/2023 ineffective and caused significant GI symptoms Kevzara 11/2023 Current Rheumatology Medication(s): Kevzara 200mg SC every 2 weeks Prednisone 7.5mg daily [facility] Medical History (Updated 03/28/24 @ 16:31 by Tangela Wilson MD) senior care (current) use of systemic steroids Encounter for monitoring tocilizumab therapy Weakness Muscle pain Cervicalgia Anxiety Surgical History H/O: hysterectomy Hx of vaginal surgery Hx of eye surgery Family History (Updated 03/27/24 @ 15:54 by CELINA Harman) Mother Diabetes Hepatitis Father Diabetes Cerebrovascular accident (CVA) Sister Breast cancer in female Social History Alcohol intake: current Alcohol intake frequency: a few times a month Patient Tobacco Use Status: Former Tobacco user e-Cigarette/Vaping Use: Currently Using Substance Use Type: Marijuana Gender identity: Female Review of Systems Const Details: Review of Systems Constitutional: Denies fever, chills, weight loss ENT: Denies vision changes, eye pain or eye redness, dental caries, dry mouth GI: Denies nausea, vomiting, diarrhea, abdominal pain, change in BM Pulm: Denies SOB, CLARK, hemoptysis, wheezing Cards: Denies chest pain, palpitations Skin: Denies Raynaud's, rash, nail changes, photosensitivity, 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 Well appearing and in no apparent painful distress HEENT Conjunctiva and sclera clear. ?Pupils equal round and reactive to light. ?No lymphadenopathy. ? CHEST/RESPIRATORY SYSTEM Normal respiratory effort and able to speak in complete sentences. ?Clear to auscultation bilaterally. ?No crackles, rales, rhonchi, wheezes heard. CARDIAC SYSTEM Regular rate and rhythm. ?S1 and S2 heard no murmurs. 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 No deformities noted. ?No synovitis noted to the MCPs, PIPs or DIPs. ?No tenderness to palpation of these joints. Wrists: ?Full range of motion at the wrists without pain. ?No tenderness to palpation or synovitis noted to the wrists. Elbows: Full range of motion without pain. No tenderness, weakness, swelling, increased warmth or erythema. Shoulders: Full range of motion without pain. No tenderness, weakness, swelling, increased warmth or erythema. Hips: Full range of motion without pain. Hip bursa: No tenderness to palpation Knees: ?Full range of motion. ?No tenderness, swelling, increased warmth or erythema.?No effusion or crepitations Ankles: Full range of motion. ?No tenderness, swelling, increased warmth or erythema.? Feet: ?Negative squeeze test. ?No tenderness to palpation or swelling of the MTPs. Tender points:?No tenderness to palpation of the bilateral trapezius, supraspinatus, greater trochanters, anterior costochondral junctions, bilateral gluteal areas, bilateral suboccipital muscle insertions SKIN Skin intact without rashes. Results Reviewed Results Reviewed: Scanned lab report review from [employer] 03/22/2024. ESR and CRP normal Assessment & Plan Assessment & Plan (1) PMR (polymyalgia rheumatica): Comment: onset 11/2022 PDN throughout MTX 04/2023 DC 11/2023 ineffective and caused significant GI symptoms Kevzara 11/2023 effective Code(s): M35.3 - Polymyalgia rheumatica Category: Medical Plan: #PMR Patient is a 58-year-old female with PMR currently on some with eye mg of prednisolone and Kevzara. Has been able to taper the prednisolone down while on the Kevzara. We will continue the steroid taper with a slow taper of 1 mg every month. 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 ? Benefits include decreased pain, improved mortality, improved quality of life Risks include LFT abnormalities, elevated triglycerides, GI perforations Contraindicated in a patient with history of diverticulitis Monitoring: ?CBC, CMP, triglycerides (3) senior care (current) use of systemic steroids: Code(s): Z79.52 - senior care (current) use of systemic steroids Category: Medical Plan: #Long-term Use of Steroids Discussed with patient the risks and benefits of steroid for managing the rheumatic condition Benefits include: - Reduced pain, improved mobility, increased participation in activities, and decreased progression of disease Risks include: - GI upset, potential ultrasound worsening or formation (especially in patients > 65 years old), elevated blood pressure/worsening hypertension, elevated blood sugar/worsening diabetes control, worsening of bone density, elevated lipids/worsening triglycerides, cataract formation, weight gain Recommended using proton pump inhibitors (PPIs) for the duration of steroid use to reduce the risk of gastric ulcers and vitamin-D daily to reduce the risk of osteoporosis Labs checked: ?A1c, T spot, hepatitis-B and C serologies Pneumocystis jiroveci prophylaxis: ?Patient with risk factors including steroids greater than 50 mg for more than 30 days, age greater than 60 years, and lung involvement from underlying rheumatic disease requires prophylaxis and will be given so Plan I spent 30 minutes reviewing the record and labs, taking a history, examining the patient, discussing the treatment plan and documenting in the medical record Medications: New prednisone 1 mg orally; Take 5 tablets for 30 days then 4 tablets for 30 days then 3 tablets for 30 days 360 tabs 0RF M35.3 - Polymyalgia rheumatica prednisone 1 mg orally; Take 5 tablets for 30 days then 4 tablets for 30 days then 3 tablets for 30 days 360 tabs 0RF M35.3 - Polymyalgia rheumatica Discontinued prednisone Discontinued Reason: Doctor's Order 2.5 mg PO DAILY 90 tabs 0RF NS M35.3 - Polymyalgia rheumatica prednisone Discontinued Reason: Doctor's Order 3 mg (3 x 1 mg) PO DAILY 90 tabs 0RF M35.3 - Polymyalgia rheumatica Coding Level of Care Code Est Pt Level 4 (87389) Complex EM visit Add On G2211 Diagnoses PMR (polymyalgia rheumatica) M35.3 Encounter for monitoring tocilizumab therapy Z51.81; Z79.620 senior care (current) use of systemic steroids Z79.52
[2024-03-27 15:54] VITALS: BP 140/80; PULSE 65; O2SAT 98; BMI 26.8
== END 2024-03-27 16:32 | disposition home or self-care (01) ==
LOC: HO.RHE 15:40
PROVIDERS: PCP Internal Medicine; Visit Provider Student in an Organized Health Care Education/Training Program
DX: M35.3 Polymyalgia rheumatica (principal); Z51.81 Encounter for therapeutic drug level monitoring; Z79.620 Long term (current) use of immunosuppressive biologic; Z79.52 Long term (current) use of systemic steroids
CPT/HCPCS: 99214

== ENCOUNTER → 2024-03-27 15:40 | Outpatient (BNVA) | payer BC, SELFPAY | PROVIDERS: PCP Internal Medicine; Visit Provider Student in an Organized Health Care Education/Training Program ==

== ENCOUNTER 2024-07-10 08:02 | Outpatient (AMB) | payer BC, SELFPAY ==
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
--- NOTE | 2024-07-10 08:08 | MHC.OFFVIS ---
Vital Signs 07/10/24 08:14 Height 5 ft 6 in Weight 167 lb 15.876 oz BMI 27.1 BP 130/80 Blood Pressure Location Lt brachial Position Sitting Pulse 62 Pulse Source Pulse Oximeter Pulse Oximetry (%) 97 Oxygen Delivery Method Room Air Intake Visit Reasons: PMR/CM Intake Note: Patient presents for PMR follow up. Allergies codeine Allergy (Unknown, Verified 07/10/24 08:14) Unknown naproxen Allergy (Unknown, Verified 07/10/24 08:14) Itching methotrexate Adverse Reaction (Intermediate, Verified 07/10/24 08:14) GI upset Medication List - Last Reconciled 07/10/24 by Tangela Wilson MD cholecalciferol (vitamin D3) 50 mcg PO DAILY estradiol 0.01%(0.1mg/gram) 1 appl vaginal QWEEK glucosamine HCl 2 caps PO DAILY Kevzara (sarilumab) 200 mg (1.14 mL) subcut Q2W NS magnesium oxide 500 mg PO DAILY methenamine hippurate 1 g PO BID multivitamin 1 tab PO DAILY omega 1-wwi-tqj-fish oil 60-90-500 mg (Fish Oil) 1 cap PO DAILY prednisone 1 mg PO DAILY HPI Comments Details: Patient is a 58-year-old female with anxiety, MGUS, and polymyalgia rheumatica here today for follow up Interval History: Patient last seen 03/27/24 with me. Time she was on Kevzara 200 mg every 2 weeks and prednisone 7.5 mg daily. Patient was doing well and the plan was to continue a slow taper of the prednisone Currently down to 1mg prednisone Doing well Also complaining of whole body stiffness at the end of the day after sitting (gelling phenomenon) Rheumatologic History: PMR onset 11/2022 PDN throughout MTX 04/2023 DC 11/2023 ineffective and caused significant GI symptoms Kevzara 11/2023 Current Rheumatology Medication(s): Kevzara 200mg SC every 2 weeks Prednisone 1mg daily PFSH Medical History (Updated 07/10/24 @ 08:51 by Tangela Wilson MD) alf (current) use of systemic steroids Weakness Muscle pain Cervicalgia Anxiety Surgical History H/O: hysterectomy Hx of vaginal surgery Hx of eye surgery Family History Mother Diabetes Hepatitis Father Diabetes Cerebrovascular accident (CVA) Sister Breast cancer in female Social History Alcohol intake: current Alcohol intake frequency: a few times a month Patient Tobacco Use Status: Former Tobacco user e-Cigarette/Vaping Use: Currently Using Substance Use Type: Marijuana Gender identity: Female Review of Systems Const Details: Review of Systems Constitutional: Denies fever, chills, weight loss ENT: Denies vision changes, eye pain or eye redness, dental caries, dry mouth GI: Denies nausea, vomiting, diarrhea, abdominal pain, change in BM Pulm: Denies SOB, CLARK, hemoptysis, wheezing Cards: Denies chest pain, palpitations Skin: Denies Raynaud's, rash, nail changes, photosensitivity, WORK STATION SUPPORT SPECIALIST: Denies headaches, weakness, paresthesias, recurrent falls MSK: as per HPI All other systems reviewed and are unremarkable except noted above Physical Exam Vital Signs: Last Vital Signs Pulse 62 07/10/24 08:14 BP 130/80 07/10/24 08:14 Pulse Ox 97 07/10/24 08:14 Oxygen Delivery Method Room Air 07/10/24 08:14 BMI result Body Mass Index 27.1 Vital signs reviewed Physical Examination CONSTITUITIONAL Patient alert and cooperative. Well appearing and in no apparent painful distress HEENT Conjunctiva and sclera clear. ?Pupils equal round and reactive to light. ?No lymphadenopathy. ? CHEST/RESPIRATORY SYSTEM Normal respiratory effort and able to speak in complete sentences. ?Clear to auscultation bilaterally. ?No crackles, rales, rhonchi, wheezes heard. CARDIAC SYSTEM Regular rate and rhythm. ?S1 and S2 heard no murmurs. ?Radial pulses intact bilaterally MSK Hands: ?Good jig builder helper strength bilaterally. No deformities noted. ?No synovitis noted to the MCPs, PIPs or DIPs. ?No tenderness to palpation of these joints. Wrists: ?Full range of motion at the wrists without pain. ?No tenderness to palpation or synovitis noted to the wrists. Elbows: Full range of motion without pain. No tenderness, weakness, swelling, increased warmth or erythema. Shoulders: Full range of motion without pain. No tenderness, weakness, swelling, increased warmth or erythema. Hips: Full range of motion without pain. Hip bursa: No tenderness to palpation Knees: ?Full range of motion. ?No tenderness, swelling, increased warmth or erythema.?No effusion or crepitations Ankles: Full range of motion. ?No tenderness, swelling, increased warmth or erythema.? Feet: ?Negative squeeze test. ?No tenderness to palpation or swelling of the MTPs. Tender points:?No tenderness to palpation of the bilateral trapezius, supraspinatus, greater trochanters, anterior costochondral junctions, bilateral gluteal areas, bilateral suboccipital muscle insertions SKIN Skin intact without rashes. Results Reviewed Results Reviewed: Scanned lab report review from [facility] 03/22/2024. ESR and CRP normal Assessment & Plan Assessment & Plan (1) PMR (polymyalgia rheumatica): Comment: onset 11/2022 PDN throughout MTX 04/2023 DC 11/2023 ineffective and caused significant GI symptoms Kevzara 11/2023 effective Code(s): M35.3 - Polymyalgia rheumatica Category: Medical Plan: #PMR Patient is a 58-year-old female with PMR here today for follow up. Currently in remission on Kevzara and prednisone 1 mg. Continue her prednisone for 1 month then stop. Plan - Kevzara 200mg SC every other week - Prednisone 1mg x 1 month then stop - Follow up labs done at [facility] 07/09/24 - RTC 3 months - Labs prior to visit: CBC, CMP, ESR, CRP, Lipid panel (2) alf current use of sarilumab: Code(s): Z79.620 - rn long term care (current) use of immunosuppressive biologic Plan: #Long-term Use of Sarilumab Discussed the risks and benefits of sarilumab with the management of this patient's rheumatic condition. ? Benefits include decreased pain, improved mortality, improved quality of life Risks include LFT abnormalities, elevated triglycerides, GI perforations Contraindicated in a patient with history of diverticulitis Monitoring: ?CBC, CMP, triglycerides (3) rn long term care (current) use of systemic steroids: Code(s): Z79.52 - rn long term care (current) use of systemic steroids Category: Medical Plan: #Long-term Use of Steroids Discussed with patient the risks and benefits of steroid for managing the rheumatic condition Benefits include: - Reduced pain, improved mobility, increased participation in activities, and decreased progression of disease Risks include: - GI upset, potential ultrasound worsening or formation (especially in patients > 65 years old), elevated blood pressure/worsening hypertension, elevated blood sugar/worsening diabetes control, worsening of bone density, elevated lipids/worsening triglycerides, cataract formation, weight gain Recommended using proton pump inhibitors (PPIs) for the duration of steroid use to reduce the risk of gastric ulcers and vitamin-D daily to reduce the risk of osteoporosis Labs checked: ?A1c, T spot, hepatitis-B and C serologies Pneumocystis jiroveci prophylaxis: ?Patient with risk factors including steroids greater than 50 mg for more than 30 days, age greater than 60 years, and lung involvement from underlying rheumatic disease requires prophylaxis and will be given so (4) Encounter for monitoring tocilizumab therapy: Code(s): Z51.81 - Encounter for therapeutic drug level monitoring; Z79.620 - alf (current) use of immunosuppressive biologic Category: Medical Plan: #Long-term Use of Tocilizumab Discussed the risks and benefits of tocilizumab with the management of this patient's rheumatic condition. ? Benefits include decreased pain, improved mortality, improved quality of life Risks include LFT abnormalities, elevated triglycerides, GI perforations Contraindicated in a patient with history of diverticulitis Monitoring: ?CBC, CMP, triglycerides Plan I spent 30 minutes reviewing the record and labs, taking a history, examining the patient, discussing the treatment plan and documenting in the medical record Orders: Orders Complete Blood Count Auto Diff 3 Months M35.3 - Polymyalgia rheumatica Comprehensive Met. Panel 3 Months M35.3 - Polymyalgia rheumatica Lipid Panel 3 Months M35.3 - Polymyalgia rheumatica C Reactive Protein 3 Months M35.3 - Polymyalgia rheumatica Erythrocyte Sedimentation Rate 3 Months M35.3 - Polymyalgia rheumatica Medications: Changed From prednisone 1 mg orally; Take 5 tablets for 30 days then 4 tablets for 30 days then 3 tablets for 30 days 360 tabs 0RF M35.3 - Polymyalgia rheumatica To prednisone 1 mg PO DAILY M35.3 - Polymyalgia rheumatica Coding Level of Care Code Est Pt Level 4 (58486) Complex EM visit Add On G2211 Diagnoses PMR (polymyalgia rheumatica) M35.3 alf current use of sarilumab Z79.620 rn long term care (current) use of systemic steroids Z79.52 Encounter for monitoring tocilizumab therapy Z51.81; Z79.620
[2024-07-10 08:14] VITALS: BP 130/80; PULSE 62; O2SAT 97; BMI 27.1
== END 2024-07-10 08:51 | disposition home or self-care (01) ==
LOC: HO.RHE 08:04
PROVIDERS: PCP Internal Medicine; Visit Provider Student in an Organized Health Care Education/Training Program
DX: M35.3 Polymyalgia rheumatica (principal); Z79.620 Long term (current) use of immunosuppressive biologic; Z79.52 Long term (current) use of systemic steroids; Z51.81 Encounter for therapeutic drug level monitoring
CPT/HCPCS: 99214

== ENCOUNTER → 2024-07-10 08:02 | Outpatient (BNVA) | payer BC, SELFPAY | PROVIDERS: PCP Internal Medicine; Visit Provider Student in an Organized Health Care Education/Training Program | DX: M35.3 Polymyalgia rheumatica (principal) ==

== ENCOUNTER 2024-10-23 08:27 | Outpatient (REF) | payer BC, SELFPAY ==
--- NOTE | ~2024-10-23 | XR_ITS ---
EXAMINATION: XR KNEE 3 VIEWS BILATERAL CLINICAL INFORMATION: M25.561 - Pain in right knee COMPARISON: Radiographs of the right and the left knee on November 24, 2022 TECHNIQUE: Three views of the right and left knee. FINDINGS: Right: Mild lateral translation and tilting of the patella. Negligible posterior patellar spur. No fracture. No suprapatellar joint effusion. Left: Mild lateral translation and tilting of the patella. Tiny posterior patellar spur. Sclerotic lesion in the medial femoral condyle, possibly chondroid lesion, is unchanged from 2022. Small suprapatellar joint effusion. XR/XR Knee Puneet 3V IMPRESSION: Right: Minimal degenerative changes. Mild lateral translation of the patella, new from 2022. Left: Minimal degenerative changes. Mild lateral translation of the patella, new from 2022. Small suprapatellar joint effusion. Stable sclerotic lesion in the medial femoral condyle. Electronically signed by: Gloria Mchugh MD 10/23/2024 10:17 AM EDT
--- NOTE | ~2024-10-23 | XR_ITS ---
EXAMINATION: XR SHOULDER, PUNEET MIN 2V CLINICAL INFORMATION: M25.511 - Pain in right shoulder COMPARISON: 11/24/2022. TECHNIQUE: AP external rotation, Grashey, scapular Y, and axillary views of each shoulder. FINDINGS: RIGHT SHOULDER: Normal bone mineralization. No fracture, dislocation, or suspicious bone lesion. Normal alignment. The glenohumeral joint demonstrates mild degenerative arthritis. The AC joint demonstrates mild hypertrophic spurring. There is a type II acromion. No undersurface spurring. The subacromial space is preserved. Remainder of the soft tissue and bony structures appear normal. LEFT SHOULDER: Normal bone mineralization. No fracture, dislocation, or suspicious bone lesion. Normal alignment. The glenohumeral joint demonstrates mild degenerative arthritis. The AC joint demonstrates mild hypertrophic spurring. There is a type II acromion. No undersurface spurring. The subacromial space is preserved. Remainder of the soft tissue and bony structures appear normal. XR/XR Shoulder Puneet min 2V IMPRESSION: 1. No acute bony abnormalities in either shoulder. 2. 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 Electronically signed by: Harman Schwartz MD 10/23/2024 10:06 AM EDT
== END 2024-10-23 08:28 | disposition home or self-care (01) ==
LOC: HO.XRAY 08:27
PROVIDERS: PCP Internal Medicine; Visit Provider Student in an Organized Health Care Education/Training Program
DX: M35.3 Polymyalgia rheumatica (principal); M25.561 Pain in right knee; M25.511 Pain in right shoulder; M25.512 Pain in left shoulder; M25.562 Pain in left knee; Z79.899 Other long term (current) drug therapy; Z79.620 Long term (current) use of immunosuppressive biologic
CPT/HCPCS: 73030; 73562

== ENCOUNTER 2024-10-23 08:27 | Outpatient (AMB) | payer BC, SELFPAY ==
--- NOTE | 2024-10-23 08:38 | A.OFFVIS_ITS ---
Vital Signs 10/23/24 08:44 Height 5 ft 6 in Weight 164 lb 10.965 oz BMI 26.6 BP 134/80 Blood Pressure Location Rt brachial Position Sitting Pulse 71 Pulse Source Pulse Oximeter Pulse Oximetry (%) 98 Oxygen Delivery Method Room Air Intake Visit Reasons: PMR Intake Note: Patient presents for PMR follow up. Allergies codeine Allergy (Unknown, Verified 10/23/24 08:43) Unknown naproxen Allergy (Unknown, Verified 10/23/24 08:43) Itching methotrexate Adverse Reaction (Intermediate, Verified 10/23/24 08:43) GI upset Medication List - Last Reconciled 10/23/24 by Tangela Wilson MD cholecalciferol (vitamin D3) 50 mcg PO DAILY estradiol 0.01%(0.1mg/gram) 1 appl vaginal QWEEK glucosamine HCl 2 caps PO DAILY Kevzara (sarilumab) 200 mg (1.14 mL) subcut Q2W NS magnesium oxide 500 mg PO DAILY methenamine hippurate 1 g PO BID multivitamin 1 tab PO DAILY omega 0-tnc-yhq-fish oil 60-90-500 mg (Fish Oil) 1 cap PO DAILY prednisone 1 mg PO DAILY HPI Comments Details: Patient is a 58-year-old female with anxiety, MGUS, and polymyalgia rheumatica here today for follow up Interval History: Patient last seen 07/10/24 with ks - On Kevzara 200mg SC every 2 weeks and prednisone 1mg daily - Currently down to 1mg prednisone - Doing well - Also complaining of whole body stiffness at the end of the day after sitting (gelling phenomenon) Today - On Kevzara 200mg SC every 2 weeks - Prednisone discontinued 1 month ago - Bilateral shoulder pain - Bilateral knee stiffness - Mostly at night but occurs in the morning - Feels like there is continued inflammation Rheumatologic History: PMR onset 11/2022 PDN throughout MTX 04/2023 DC 11/2023 ineffective and caused significant GI symptoms Kevzara 11/2023 Current Rheumatology Medication(s): Kevzara 200mg SC every 2 weeks [facility] Medical History (Updated 07/10/24 @ 08:51 by Tangela Wilson MD) intermediate (current) use of systemic steroids Weakness Muscle pain Cervicalgia Anxiety Surgical History (Reviewed 10/23/24 @ 08:44 by Jaqui Grover [facility] H/O: hysterectomy Hx of vaginal surgery Hx of eye surgery Family History Mother Diabetes Hepatitis Father Diabetes Cerebrovascular accident (CVA) Sister Breast cancer in female Social History Alcohol intake: current Alcohol intake frequency: a few times a month Patient Tobacco Use Status: Former Tobacco user e-Cigarette/Vaping Use: Currently Using Substance Use Type: Marijuana Gender identity: Female Review of Systems Const Details: Review of Systems Constitutional: Denies fever, chills, weight loss ENT: Denies vision changes, eye pain or eye redness, dental caries, dry mouth GI: Denies nausea, vomiting, diarrhea, abdominal pain, change in BM Pulm: Denies SOB, CLARK, hemoptysis, wheezing Cards: Denies chest pain, palpitations Skin: Denies Raynaud's, rash, nail changes, photosensitivity, MICROPHONE OPERATOR: Denies headaches, weakness, paresthesias, recurrent falls MSK: as per HPI All other systems reviewed and are unremarkable except noted above Physical Exam Exam Exam: Vital signs reviewed Physical Examination CONSTITUITIONAL Patient alert and cooperative. Well appearing and in no apparent painful distress MSK Hands * Right Hand: Able to make a fist. No swelling or tenderness to palpation of the MCPs, PIPs or DIPs. * Left Hand: Able to make a fist. No swelling or tenderness to palpation of the MCPs, PIPs or DIPs. Wrists * Right Wrist: Full ROM to flexion and extension. No swelling or TTP * Left Wrist: Full ROM to flexion and extension. No swelling or TTP Elbows * Right Elbow: Full ROM. No swelling or TTP. No TTP of the medial epicondyle. No TTP of the lateral epicondyle * Left Elbow: Full ROM. No swelling or TTP. No TTP of the medial epicondyle. No TTP of the lateral epicondyle Shoulders * Right shoulder: Full ROM but noting pain with upper range of movement. No swelling noted. No TTP of the AC joint. No TTP of the subacromial bursa. No TTP of the posterior shoulder * Left shoulder: Full ROM but noting pain with upper range of movement. No swelling noted. No TTP of the AC joint. No TTP of the subacromial bursa. No TTP of the posterior shoulder Knees * Right knee: Full ROM. No swelling noted. No TTP of the knee joint line. No TTP of pes anserine bursa * Left knee: Full ROM. No swelling noted. No TTP of the knee joint line. No TTP of pes anserine bursa. * Crepitations felt bilaterally Ankles * Right ankle: Good ankle dorsiflexion and plantar flexion. No swelling. No TTP of the ankle joint * Left ankle: Good ankle dorsiflexion and plantar flexion. No swelling. No TTP of the ankle joint Feet * Right foot: Negative squeeze test * Left foot: Negative squeeze test Tender points? * No tenderness to palpation of the bilateral trapezius, supraspinatus, anterior costochondral junctions, bilateral suboccipital muscle insertions SKIN No rashes Vital Signs: Last Vital Signs Pulse 71 10/23/24 08:44 BP 134/80 10/23/24 08:44 Pulse Ox 98 10/23/24 08:44 Oxygen Delivery Method Room Air 10/23/24 08:44 BMI result Body Mass Index 26.6 Results Reviewed Results Reviewed: 07/09/24 [facility] 10/17/24 [facility] WBC 6.5 5.4 Hb 14.7 15.8 Plt 236 232 BUN 15 15 Cr 0.67 0.75 eGFR 100 91 AST 19 26 ALT 22 29 ESR 2 3 CRP <1 <1 Hepatitis B NR Hep C NR Tb negative Assessment & Plan Assessment & Plan (1) PMR (polymyalgia rheumatica): Comment: onset 11/2022 PDN throughout MTX 04/2023 DC 11/2023 ineffective and caused significant GI symptoms Kevzara 11/2023 effective Code(s): M35.3 - Polymyalgia rheumatica Category: Medical Plan: #PMR Patient is a 58-year-old female with PMR here today for follow up. Currently in remission on Kevzara Still having bilateral shoulder pain. Inflammatory markers normal Differentials: bilateral shoulder OA vs continued PMR activity Will get x-rays of her shoulders and do a trial of steroid injection. 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 ? Benefits include decreased pain, improved mortality, improved quality of life Risks include LFT abnormalities, elevated triglycerides, GI perforations Contraindicated in a patient with history of diverticulitis Monitoring: ?CBC, CMP, triglycerides Plan I spent 30 minutes reviewing the record and labs, taking a history, examining the patient, discussing the treatment plan and documenting in the medical record Orders: Orders XR shoulder LT min 2V Today M25.511 - Pain in right shoulder, M25.512 - Pain in left shoulder XR knee RT 3V Today M25.561 - Pain in right knee, M25.562 - Pain in left knee Coding Level of Care Code Est Pt Level 4 (55789) Complex EM visit Add On G2211 Diagnoses PMR (polymyalgia rheumatica) M35.3 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
[2024-10-23 08:44] VITALS: BP 134/80; PULSE 71; O2SAT 98; BMI 26.6
--- OUTSIDE RECORDS SUMMARY | 2024-10-23 09:30 | XMS_ITS ---
Author Name [facility] Organization Unknown Care Team Organization Name Specialty Phone Email Start Date End Da te [facility] Johanna [facility]oks [facility] 06/13/2022 024 [facility] Termed, PROVIDER Primary Care 12/14/202109/06
--- OUTSIDE RECORDS SUMMARY | 2024-10-23 09:30 | XMS_ITS | Clinical Summary ---
Author Organization [facility] Address [address] [place] [address] Phone Care Team Providers Care Pension Administrator Name Role Phone Johanna Crooks MD Primary Care Provider [phone] Allergies Active Allergy Reactions Criticality Noted Date [...] mouth 1 (one) time each day. Active methenamine mandelate (MANDELAMINE) 0.5 gram tablet Take 1 tablet (500 mg total) by mouth 1 (one) time each day. Active multivit-min/payam patricia fumarate (MULTI VITAMIN ORAL) Take 1 tablet by mouth 1 (one) time each day. Active vit C/vit E/lutein/min/ome ga-3 (OCUVITE ORAL) Take by mouth 1 (one) time each day. Active predniSONE (DELTASONE) 2.5 mg tablet Take 2 mg by mouth 1 (one) time each day. 07/10/2023 Active B-complex with vitamin C (VITAMIN B COMPLEX WITH C ORAL) Take by mouth. Active Kevzara 200 mg/1.14 mL pen injector Inject under the skin. Active hydrOXYzine HCL (ATARAX) 25 mg tablet Take 1 tablet (25 mg total) by mouth 1 (one) time each day if needed for anxiety. 30 each 06/24/2024 Active Active Problems Problem Noted Date Diagnosed Date Seborrheic keratosis 04/30/2024 Polymyalgia rheumatica (CMS/HCC V24) 04/30/2024 Melanocytic nevus of trunk 04/30/2024 Anxiety 10/02/2015 Encounters Date Type Department Care Team Description 08/14/2024 3:57 PM EDT - 08/14/2024 11:59 PM EDT Hospital Encounter [facility] CT Scan [address] [place] [id number] Encounter for screening for malignant neoplasm of respiratory organs; Personal history of nicotine dependence Discharge Disposition: Home or Self Care 08/14/2024 3:30 PM EDT Office Visit Lung Screening Program - [place] [address] [place] [id number] Robert Smith, [place] Encounter for screening for malignant neoplasm of lung in former smoker who quit in past 15 years with 30 pack year history or greater (Primary Dx); Former smoker from Last 3 Months Immunizations Name Administration [...] PROCEDURE: HISTORICAL COLONOSCOPY; COMMENT: normal screening exam. HYSTERECTOMY Family History Medical History Relation Name Comments Diabetes Father Stroke Father Other: hepatitis Mother diabetes Breast cancer Sister BRCA neg Relation Name Status Comments Daughter Alive Father dm Mother dm Sister Son Alive Social History Tobacco Use Types Packs/Day Years Used Date Smoking Tobacco: Former Cigarettes 1 33.2 1 - 02/06/2013 Smokeless Tobacco: Never Tobacco Cessation:Counseling Given: Not Answered Alcohol Use Standard Drinks/Week Comments No 0 (1 standard drink = 0.6 oz pur e alcohol) Comments Unknown Sex and Gender Information Value Date Recorded Sex Assigned at Not on file Legal Sex Female 5:02 PM EST Gender Identity Not on file Sexual Orientation Not on file Obstetrics History Last Filed Vital Signs Vital Sign Reading Time Taken Comments Blood Pressure 122/78 06/24/2024 3:39 PM EDT Pulse 72 06/24/2024 3:39 PM EDT Temperature 36.6 C (97.9 F) 06/24/2024 3:39 PM EDT Respiratory Rate 14 06/24/2024 3:39 PM EDT Oxygen Saturation - - Inhaled Oxygen Concentration - - Weight 77.5 kg (170 lb 12.8 oz) 06/24/2024 3:39 PM EDT Height 165.1 cm (5' 5 ) 06/24/2024 3:39 PM EDT Body Mass Index 28.42 06/24/2024 3:39 PM EDT Plan of Treatment Health Maintenance Due Date Last Done Comments Social Influencers of Health Screening 01/05/2022 Depression Screening 02/07/2024 Influenza Vaccine (#1) 2024 , 11/13/2019, 12/03/2017 Breast Cancer Screening 03/06/2025 03/06/2023 DTaP,Tdap,and Td Vaccines (1 - Tdap) 06/24/2025 Postponed from 11/20 (Not clinically appropriate to address at this time) Pneumococcal Vaccine: 50+ Years (1 of 1 - PCV) 06/24/2025 Postponed from 11/06 (Not clinically appropriate to address at this time) Zoster Vaccines (1 of 2) 06/24/2025 Pos tponed from 11/20/1982 (Not clinically appropriate to address at this time) Lung Cancer Screening (Low Dose CT) 08/14/2025 08/14/2024 Colorectal Cancer Screening: Colonoscopy 05/30/2026 05/30/2016 Cholesterol Screening (Lipid Panel) 09/12/2029 09/12/2024, 11/11/2017 RSV Immunization Adult Patients (1 - 1-dose 75+ series) 11/20/2038 HIV Screening Completed 02/17/2015 Hepatitis C Screening Completed 10/02/2015 COVID-19 Vaccine Discontinued 05/22/2020, 04/24/2020 HIB Vaccines Aged Out No longer eligi [...] age to complete this topic Meningococcal B Vaccine Aged Out No l onger eligible based on patient's age to complete this topic RSV Immunization Patients Under 20 months Aged Out No longer eligible b ased on patient's age to complete this topic Varicella Vaccines Aged Out No longer eligible based on patient's age to complete this topic Procedures Procedure Name Priority Date/Time Associated Diagnosis Comments CBC WITH AUTO DIFFERENTIAL Routine 09/12/2024 8:48 AM EDT Routine physical examination CBC AND DIFFERENTIAL Routine 09/12/2024 8:48 AM EDT Routine physical examination COMPREHENSIVE METABOLIC PANEL Routine 09/12/2024 8:48 AM EDT Routine physical examination HEMOGLOBIN A1C Routine 09/12/2024 8:48 AM EDT Routine physical examination LIPID PANEL WITH REFLEX TO DIRECT LDL Routine 09/12/2024 8:48 AM EDT Routine physical examination THYROID STIMULATING HORMONE WITH REFLEX TO FREE T4 AND FREE T3 Routine 09/12/2024 8:48 AM EDT Routine physical examination CT LUNG SCREENING Routine 08/14/2024 4:2 7 PM EDT Encounter for screening for malignant neoplasm of respiratory organs Personal history of nicotine dependence EXTERNAL MAMMOGRAM REPORT Routine 03/06/2023 4:11 PM EST HM COLONOSCOPY Routine 05/30/2016 HEPATITIS C SCREENING Routine 10/02/2015 HIV SCREENING Routine 02/17/2015 from Last 3 Months or Most Recently Relevant to Health Maintenance Results * Thyroid stimulating hormone with reflex to free t4 and free t3 (09/12/2024 8:48 AM EDT) Pathologist [facility] TSH 1.90 0.40 - 4.00 mcIU/mL LAB CHEMISTRY METHOD 09/12/2024 1:48 PM EDT [facility] Blood Venous blood specimen / Unknown Venipuncture / Unknown 09/12/2024 8:48 AM EDT 09/12/2024 8:48 AM EDT Neha FERNANDO LAB BLOOD ORDERABLES Final Res ult [facility] [address] [place] [address], [place] [phone] * (ABNORMAL) Lipid panel with reflex to direct LDL (09/12/2024 8:48 AM EDT) Cholesterol 222(H) 0 - 200 mg/dL LAB CHEMISTRY METHOD 09/12/2024 12:58 PM EDT [facility] Triglycerides 202(H) 0 - 150 mg/dL LAB CHEMISTRY METHOD 09/12/2024 12:58 PM EDT [facility] HDL 67 >=40 mg/dL LAB CHEMISTRY METHOD 09/12/2024 12:58 PM EDT [facility] LDL Calculated 115(H) 0 - 100 mg/dL LAB CHEMISTRY METHOD 09/12/2024 12:58 PM EDT [facility] Comment:Estimated LDL Calcul ated using equation: Total cholesterol - HDL cholesterol - (Triglycerides/5) VLDL Cholesterol Tanvir 40.4 mg/dL LAB CHEMISTRY METHOD 09/12/2024 12:58 PM EDT [facility] Non HDL Chol. (LDL+VLDL) 155(H) <145 mg/dL LAB CHEMISTRY METHOD 09/12/2024 12:58 PM EDT [facility] Chol/HDL Ratio 3.3 0.0 - 4.4 LAB CHEMISTRY METHOD 09/12/2024 12:58 PM EDT [facility] Blood Venous blood specimen / Unknown Venipuncture / Unknown 09/12/2024 8:48 AM EDT 09/12/2024 8:48 AM EDT us Neha FERNANDO LAB BLOOD ORDERABLES Final Res ult [facility] [address] [place] [address], * (ABNORMAL) CBC auto differential (09/12/2024 8:48 AM EDT) WBC 4.8 4.8 - 10.8 K/mcL LAB HEMETOLOGY METHOD 09/12/2024 11:09 AM [facility] RBC 5.00(H) 3.80 - 4.80 M/mcL LAB HEMETOLOGY METHOD 09/12/2024 11:09 AM [facility] Hemoglobin 16.3(H) 11.5 - 16.0 g/dL LAB HEMETOLOGY METHOD 09/12/2024 11:09 AM [facility] Hematocrit 46.6 35.0 - 47.0 % LAB HEMETOLOGY METHOD 09[facility]12[facility]24 [facility] MCV 93.8 79.0 - 98.0 FL LAB HEMETOLOGY METHOD 09/12/2024 11:09 AM [facility] MCH 32.8(H) 27.0 - 32.0 pcg LAB HEMETOLOGY METHOD 09/12/2024 11:09 AM [facility] MCHC 35.0 32.0 - 37.0 g/dL LAB HEMETOLOGY METHOD 09/12/2024 11:09 AM [facility] RDW 13.6 11.0 - 15.0 % LAB HEMETOLOGY METHOD 09/12/2024 11:09 AM [facility] Platelets 210 130 - 400 K/mcL LAB HEMETOLOGY METHOD 09/12/2024 11:09 AM [facility] MPV 10.5 7.0 - 11.0 FL LAB HEMETOLOGY METHOD 09/12/2024 11:09 AM [facility] NRBC 0.0 <1.0 % LAB HEMETOLOGY METHOD 09/12/2024 11:09 AM [facility] NRBC Absolute 0.00 <0.10 K/mcL LAB HEMETOLOGY METHOD 09/12/2024 11:09 AM [facility] Neutrophils Relative 41.6 % LAB HEMETOLOGY METHOD 09/12/2024 11:09 AM [facility] Lymphocytes Relative 40.8 % LAB HEMETOLOGY METHOD 09/12/2024 11:09 AM [facility] Monocytes Relative 13.9 % LAB HEMETOLOGY METHOD 09/12/2024 11:09 AM [facility] Eosinophils Relative 2.7 % LAB HEMETOLOGY METHOD 09/12/2024 11:09 AM [facility] Basophils Relative 0.8 % LAB HEMETOLOGY METHOD 09/12/2024 11:09 AM [facility] Immature Granulocytes Relative 0.2 % LAB HEMETOLOGY METHOD 09/12/2024 11:09 AM [facility] Neutrophils Absolute 1.98 1.50 - 7.00 K/mcL LAB HEMETOLOGY METHOD 09/12/2024 11:09 AM [facility] Lymphocytes Absolute 1.94 1.00 - 5.00 K/mcL LAB HEMETOLOGY METHOD 09/12/2024 11:09 AM EDT [facility] Monocytes Absolute 0.66 0.20 - 1.00 K/[facility] LAB HEMETOLOGY METHOD 09/12/2024 11:09 AM EDT [facility] Eosinophils Absolute 0.13 0.00 - 0.50 K/[facility] HEMETOLOGY METHOD 09/12/2024 11:09 AM EDT [facility] Basophils Absolute 0.04 0.00 - 0.20 K/[facility] HEMETOLOGY METHOD 09/12/2024 11:09 AM EDT [facility] Immature Granulocytes Absolute 0.01 0.00 - 0.03 K/[facility] HEMETOLOGY METHOD 09/12/2024 11:09 AM EDT [facility] Blood Venous blood specimen / Unknown Venipuncture / Unknown 09/12/2024 8:48 AM EDT 09/12/2024 8:48 AM EDT us Neha FERNANDO LAB BLOOD ORDERABLES Final Res ult [facility] [address] [place] [address], * Hemoglobin A1c (09/12/2024 8:48 AM EDT) Hemoglobin A1C 5.0 <6.5 % LAB CHEMISTRY METHOD 09/12/2024 1:02 PM EDT [facility] Mean Bld Glu Estim. 97 mg/dL LAB CHEMISTRY METHOD 09/12/2024 1:02 PM EDT [facility] Blood Venous blood specimen / Unknown Venipuncture / Unknown 09/12/2024 8:48 AM EDT 09/12/2024 8:48 AM EDT us Neha FERNANDO LAB BLOOD ORDERABLES Final Res ult [facility] [address] [place] [address], * Comprehensive metabolic panel (09/12/2024 8:48 AM EDT) Sodium 140 133 - 145 mmol/L LAB CHEMISTRY METHOD 09/12/2024 12:58 PM [facility] Potassium 3.9 3.5 - 5.5 mmol/L LAB CHEMISTRY METHOD 09/12/2024 12:58 PM [facility] Chloride 107 96 - 110 mmol/L LAB CHEMISTRY METHOD 09/12/2024 12:58 PM [facility] CO2 28 21 - 32 mmol/L LAB CHEMISTRY METHOD 09/12/2024 12:58 PM [facility] Anion Gap 5 3 - 11 LAB CHEMISTRY METHOD 09/12/2024 12:58 PM [facility] Glucose 90 70 - 100 mg/dL LAB CHEMISTRY METHOD 09/12/2024 12:58 PM [facility] BUN 17 5 - 25 mg/dL LAB CHEMISTRY METHOD 09/12/2024 12:58 PM [facility] Creatinine 0.67 0.50 - 1.10 mg/dL LAB CHEMISTRY METHOD 09/12/2024 12:58 PM [facility] eGFR 100 >=60 mL/min/1. 73m2 LAB CHEMISTRY METHOD 09/12/2024 12:58 PM [facility] Comment:Calculation based on the Chronic Kidney Disease Epidemiology Collaboration (CKD-EPI) equation refit without adjustment for race. BUN/Creatinine Ratio 25.4 LAB CHEMISTRY METHOD 09/12/2024 12:58 PM [facility] Calcium 9.3 8.5 - 10.5 mg/dL LAB CHEMISTRY METHOD 09/12/2024 12:58 PM [facility] AST (SGOT) 26 10 - 42 unit/L LAB CHEMISTRY METHOD 09/12/2024 12:58 PM EDT [facility] ALT (SGPT) 39 10 - 60 unit/L LAB CHEMISTRY METHOD 09/12/2024 12:58 PM EDT [facility] Alkaline Phosphatase 91 42 - 121 unit/L LAB CHEMISTRY METHOD 09/12/2024 12:58 PM EDT [facility] Total Protein 6.8 6.0 - 8.0 g/dL LAB CHEMISTRY METHOD 09/12/2024 12:58 PM EDT [facility] Albumin 4.5 3.2 - 5.0 g/dL LAB CHEMISTRY METHOD 09/12/2024 12:58 PM EDT [facility] Total Bilirubin 1.4 0.0 - 1.4 mg/dL LAB CHEMISTRY METHOD 09/12/2024 12:58 PM EDT [facility] Blood Venous blood specimen / Unknown Venipuncture / Unknown 09/12/2024 8:48 AM EDT 09/12/2024 8:48 AM EDT Neha FERNANDO LAB BLOOD ORDERABLES Final Res ult [facility] [address] [place] [address], * CT Lung Screening (08/14/2024 4:27 PM EDT) Anatomical Region Laterality Modality Chest Computed Tomogra phy 08/15/2024 11:3 4 AM EDT Impressions 08/15/2024 11:36 AM EDT No suspicious pulmonary nodules. Lung RADS 1, recommend low-dose screening chest CT in 12 months -------- FINAL REPORT -------- Dictated By: Rhina Moore Dictated Date: 08/15/2024 11:34 ET Assigned Physician: Rhina Moore Reviewed and Electronically Signed By: Rhina Moore Signed Date: 08/15/2024 11:36 ET Workstation ID: [id number] Transcribed By: Self Edit Transcribed Date: 08/15/2024 11:34 ET Narrative 08/15/2024 11:36 AM EDT INDICATION: Former smoker quit 11 years ago with 35 pack-year smoking history FINDINGS: Low-dose CT scan of the chest obtained as a lung cancer screening study. Scanner: [employer] Revolution frontier 128 slice VCT Dose reduction technique: ASIR (Adaptive statistical iterative reconstruction) and/or AEC (automated exposure control) Dose: total exam DLP 177 mGY per cm COMPARISON: No prior studies are available for comparison. Lung: No infiltrates or effusions. Mild bibasilar atelectasis. No discrete pulmonary nodules or masses. Lymph nodes: No thoracic lymphadenopathy. Mediastinum: Trachea and esophagus are within normal limits. Heart normal in size and shape without pericardial effusion. Mediastinal vascular structures are normal in course and caliber. Bony structures: Within normal limits for the patient's age. Procedure Note Rhina Moore MD - 08/15/2024 INDICATION: Former smoker quit 11 years ago with 35 pack-year smokinghistory FINDINGS: Low-dose CT scan of the chest obtained as a lung cancerscreening study. Scanner: [employer] Revolution frontier 128 slice VCT Dose reduction technique: ASIR (Adaptive statistical iterativereconstruction) and/or AEC (automated exposure control) Dose: total exam DLP 177 mGY per cm COMPARISON: No prior studies are available for comparison. Lung: No infiltrates or effusions. Mild bibasilar atelectasis. No discretepulmonary nodules or masses. Lymph nodes: No thoracic lymphadenopathy. Mediastinum: Trachea and esophagus are within normal limits. Heart normalin size and shape without pericardial effusion. Mediastinal vascularstructures are normal in course and caliber. Bony structures: Within normal limits for the patient's age. IMPRESSION: No suspicious pulmonary nodules. Lung RADS 1, recommend low-dose screening chest CT in 12 months -------- FINAL REPORT -------- Dictated By: Rhina Moore Dictated Date: 08/15/2024 11:34 ET Assigned Physician: Rhina Moore Reviewed and Electronically Signed By: Rhina Moore Signed Date: 08/15/2024 11:36 ET Workstation ID: [id number] Transcribed By: Self Edit Transcribed Date: 08/15/2024 11:34 ET Senait Vazquez MD IMG CT PROCEDURES Final Result * External Mammogram Report (03/06/2023 4:11 PM EST) Anatomical Region Laterality Modality Mammography Historical Provider IMG BI PROCEDURES Final R esult * Colonoscopy (05/30/2016) [facility] Colonoscopy no interpretation , abstracted Anatomical Region Laterality Modality Other Result [facility] Provider HEALTH MAINTENANCE Final Result * Hepatitis C Screening (10/02/2015) [facility] Hepatitis C Screening abstracted [facility] Provider HEALTH MAINTENANCE Final Result * HIV Screening (02/17/2015) [facility] HIV Screening abstracted Historical Provider HEALTH MAINTENANCE Final Result from Last 3 Months or Most Recently Relevant to Health Maintenance Insurance [facility] Care Teams Pension Administrator Relationship Specialty Start Date End Date Johanna Crooks MD [address] [place] [id number] PCP - General Internal Medicine 03/07/22
== END 2024-10-23 10:29 | disposition home or self-care (01) ==
LOC: HO.RHES 08:28
PROVIDERS: PCP Internal Medicine; Visit Provider Student in an Organized Health Care Education/Training Program
DX: M35.3 Polymyalgia rheumatica (principal); Z79.620 Long term (current) use of immunosuppressive biologic
CPT/HCPCS: 99214

== ENCOUNTER → 2024-10-23 09:43 | Outpatient (BNV) | payer BC, SELFPAY | PROVIDERS: PCP Internal Medicine; Visit Provider Radiology Diagnostic Radiology | DX: M19.011 Primary osteoarthritis, right shoulder (principal); M19.012 Primary osteoarthritis, left shoulder; M17.0 Bilateral primary osteoarthritis of knee | CPT/HCPCS: 73030; 73562 ==

== ENCOUNTER 2024-11-01 11:13 | Outpatient (AMB) | payer BC, SELFPAY ==
--- NOTE | 2024-11-01 11:33 | A.OFFVIS_ITS ---
Vital Signs 11/01/24 11:36 Height 5 ft 6 in Weight 164 lb 3.91 oz BMI 26.5 BP 134/80 Blood Pressure Location Lt brachial Position Sitting Pulse 65 Pulse Source Pulse Oximeter Pulse Oximetry (%) 98 Oxygen Delivery Method Room Air Intake Visit Reasons: shoulders pain/inj Intake Note: Patient presents for shoulder pain and injection follow up. Allergies codeine Allergy (Unknown, Verified 11/01/24 11:36) Unknown naproxen Allergy (Unknown, Verified 11/01/24 11:36) Itching methotrexate Adverse Reaction (Intermediate, Verified 11/01/24 11:36) GI upset HPI Comments Details: Patient is a 58-year-old female with anxiety, MGUS, and polymyalgia rheumatica here today for follow up Interval History: Patient last seen 10/23/24 with ms - On Kevzara 200mg SC every 2 weeks - Prednisone discontinued 1 month ago - Bilateral shoulder pain - Bilateral knee stiffness - Mostly at night but occurs in the morning - Feels like there is continued inflammation No evidence of inflammation on labs XRs ordered which showed OA changes to the AC and GH joints Today - On Kevzara 200mg SC every 2 weeks - Here today for trial of shoulder injections Rheumatologic History: PMR onset 11/2022 PDN throughout MTX 04/2023 DC 11/2023 ineffective and caused significant GI symptoms Kevzara 11/2023 Current Rheumatology Medication(s): Kevzara 200mg SC every 2 weeks [facility] Medical History (Updated 07/10/24 @ 08:51 by Tangela Wilson MD) longterm (current) use of systemic steroids Weakness Muscle pain Cervicalgia Anxiety Surgical History H/O: hysterectomy Hx of vaginal surgery Hx of eye surgery Family History Mother Diabetes Hepatitis Father Diabetes Cerebrovascular accident (CVA) Sister Breast cancer in female Social History Alcohol intake: current Alcohol intake frequency: a few times a month Patient Tobacco Use Status: Former Tobacco user e-Cigarette/Vaping Use: Currently Using Substance Use Type: Marijuana Gender identity: Female Review of Systems Const Details: Review of Systems Constitutional: Denies fever, chills, weight loss ENT: Denies vision changes, eye pain or eye redness, dental caries, dry mouth GI: Denies nausea, vomiting, diarrhea, abdominal pain, change in BM Pulm: Denies SOB, CLARK, hemoptysis, wheezing Cards: Denies chest pain, palpitations Skin: Denies Raynaud's, rash, nail changes, photosensitivity, COMPENSATION ADVISOR: Denies headaches, weakness, paresthesias, recurrent falls MSK: as per HPI All other systems reviewed and are unremarkable except noted above Physical Exam Exam Exam: Vital signs reviewed Physical Examination CONSTITUITIONAL Patient alert and cooperative. Well appearing and in no apparent painful distress MSK Hands * Right Hand: Able to make a fist. No swelling or tenderness to palpation of the MCPs, PIPs or DIPs. * Left Hand: Able to make a fist. No swelling or tenderness to palpation of the MCPs, PIPs or DIPs. Wrists * Right Wrist: Full ROM to flexion and extension. No swelling or TTP * Left Wrist: Full ROM to flexion and extension. No swelling or TTP Elbows * Right Elbow: Full ROM. No swelling or TTP. No TTP of the medial epicondyle. No TTP of the lateral epicondyle * Left Elbow: Full ROM. No swelling or TTP. No TTP of the medial epicondyle. No TTP of the lateral epicondyle Shoulders * Right shoulder: Full ROM but noting pain with upper range of movement. No swelling noted. No TTP of the AC joint. No TTP of the subacromial bursa. No TTP of the posterior shoulder * Left shoulder: Full ROM but noting pain with upper range of movement. No swelling noted. No TTP of the AC joint. No TTP of the subacromial bursa. No TTP of the posterior shoulder Knees * Right knee: Full ROM. No swelling noted. No TTP of the knee joint line. No TTP of pes anserine bursa * Left knee: Full ROM. No swelling noted. No TTP of the knee joint line. No TTP of pes anserine bursa. * Crepitations felt bilaterally Ankles * Right ankle: Good ankle dorsiflexion and plantar flexion. No swelling. No TTP of the ankle joint * Left ankle: Good ankle dorsiflexion and plantar flexion. No swelling. No TTP of the ankle joint Feet * Right foot: Negative squeeze test * Left foot: Negative squeeze test Tender points? * No tenderness to palpation of the bilateral trapezius, supraspinatus, anterior costochondral junctions, bilateral suboccipital muscle insertions SKIN No rashes Vital Signs: Last Vital Signs Pulse 65 11/01/24 11:36 BP 134/80 11/01/24 11:36 Pulse Ox 98 11/01/24 11:36 Oxygen Delivery Method Room Air 11/01/24 11:36 BMI result Body Mass Index 26.5 Office Procedures AMB Joint Injection/Aspiration Joint Injection/Aspiration Details: Procedure was explained to the patient and informed consent was obtained. ? Risks associated with the procedure were discussed with the patient including but not limited to bleeding, infection, drug reactions and reactions to the topical anesthetic. Patient made aware of signs to look out for infectious complications. The area of interest was identified and confirmed with patient. ?This was subsequently cleaned with chlorhexidine x 2. ? The area was then anesthetized using ethyl chloride spray. 60 mg Kenalog with 1 cc 1% lidocaine was injected without issue. ?Minimal to no bleeding. ?Patient tolerated procedure. Primary Site: right shoulder Prep: site was prepped using aseptic technique and ethochloride spray was applied Injected: 60 mg of, Kenalog, with 1 mL of, 1% plain lidocaine and in the joint Procedure: The patient tolerated the procedure well Coding 82637 - Large joint Procedure code (CPT) selection complete AMB Joint Injection/Aspiration Joint Injection/Aspiration Details: Procedure was explained to the patient and informed consent was obtained. ? Risks associated with the procedure were discussed with the patient including but not limited to bleeding, infection, drug reactions and reactions to the topical anesthetic. Patient made aware of signs to look out for infectious complications. The area of interest was identified and confirmed with patient. ?This was subsequently cleaned with chlorhexidine x 2. ? The area was then anesthetized using ethyl chloride spray. 60 mg Kenalog with 1 cc 1% lidocaine was injected without issue. ?Minimal to no bleeding. ?Patient tolerated procedure. Primary Site: left shoulder Prep: site was prepped using aseptic technique and ethochloride spray was applied Injected: 60 mg of, Kenalog, with 1 mL of, 1% plain lidocaine and in the joint Procedure: The patient tolerated the procedure well Coding 13751 - Large joint Procedure code (CPT) selection complete Office Meds lidocaine (PF) 10 mg/mL (1 %) injection solution Performing Provider: Tangela Wilson MD Performing Location: [facility] [place] [facility] Administered by: Porfirio Gregorio RN on 11/01/24 12:45 Dose Route Admin Location Dispensed Lot Number Expiration Date ND Mannequin Mounter 1 mL Infiltration 2 mL [id number] 07/06/26 19344-472-22 [employer] Total Dispensed Waste 2 mL 50 % Kenalog 40 mg/mL suspension for injection Performing Provider: Tangela Wilson MD Performing Location: [facility] [place] [facility] Administered by: Porfirio Gregorio RN on 11/01/24 12:45 Dose Route Admin Location Dispensed Lot Number Expiration Date [facility] Mannequin Mounter 60 mg intra-articular 2 mL [id number] 08/05/26 [address]-2 A [employer] Total Dispensed Waste 2 mL 25 % lidocaine (PF) 10 mg/mL (1 %) injection solution Performing Provider: Tangela Wilson MD Performing Location: [facility] [place] [facility] Administered by: Porfirio Gregorio RN on 11/01/24 12:45 Dose Route Admin Location Dispensed Lot Number Expiration Date [facility] Mannequin Mounter 1 mL Infiltration 2 mL [id number] 07/06/26 62360-413-86 [employer] Total Dispensed Waste 2 mL 50 % Kenalog 40 mg/mL suspension for injection Performing Provider: Tangela Wilsno MD Performing Location: [facility] [place] [facility] Administered by: Porfirio Gregorio RN on 11/01/24 12:45 Dose Route Admin Location Dispensed Lot Number Expiration Date [facility] Mannequin Mounter 60 mg intra-articular 2 mL [id number] 08/05/26 [address]-6 [employer] Total Dispensed Waste 2 mL 25 % Results Reviewed Results Reviewed: 07/09/24 [facility] 10/17/24 [facility] WBC 6.5 5.4 Hb 14.7 15.8 Plt 236 232 BUN 15 15 Cr 0.67 0.75 eGFR 100 91 AST 19 26 ALT 22 29 ESR 2 3 CRP <1 <1 Hepatitis B NR Hep C NR Tb negative XR Bilateral Shoulders 10/2024 FINDINGS: RIGHT SHOULDER: Normal bone mineralization. No fracture, dislocation, or suspicious bone lesion. Normal alignment. The glenohumeral joint demonstrates mild degenerative arthritis. The AC joint demonstrates mild hypertrophic spurring. There is a type II acromion. No undersurface spurring. The subacromial space is preserved. Remainder of the soft tissue and bony structures appear normal. LEFT SHOULDER: Normal bone mineralization. No fracture, dislocation, or suspicious bone lesion. Normal alignment. The glenohumeral joint demonstrates mild degenerative arthritis. The AC joint demonstrates mild hypertrophic spurring. There is a type II acromion. No undersurface spurring. The subacromial space is preserved. Remainder of the soft tissue and bony structures appear normal. IMPRESSION: 1. No acute bony abnormalities in either shoulder. 2. 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 XR Bilateral Knee 10/2024 FINDINGS: Right: Mild lateral translation and tilting of the patella. Negligible posterior patellar spur. No fracture. No suprapatellar joint effusion. Left: Mild lateral translation and tilting of the patella. Tiny posterior patellar spur. Sclerotic lesion in the medial femoral condyle, possibly chondroid lesion, is unchanged from 2022. Small suprapatellar joint effusion. IMPRESSION: Right: Minimal degenerative changes. Mild lateral translation of the patella, new from 2022. Left: Minimal degenerative changes. Mild lateral translation of the patella, new from 2022. Small suprapatellar joint effusion. Stable sclerotic lesion in the medial femoral condyle. Assessment & Plan Assessment & Plan (1) Osteoarthritis of shoulders, bilateral: Code(s): M19.011 - Primary osteoarthritis, right shoulder; M19.012 - Primary osteoarthritis, left shoulder Qualifiers: Osteoarthritis type: primary Qualified Code(s): M19.011 - Primary osteoarthritis, right shoulder; M19.012 - Primary osteoarthritis, left shoulder Plan: #Bilateral shoulder OA Patient is a 58-year-old female with bilateral shoulder osteoarthritis involving the glenohumeral and acromioclavicular joints. Status post bilateral glenohumeral steroid injections Plan - S/p bilateral steroid injection - RTC for regular follow up (2) Bilateral primary osteoarthritis of knee: Code(s): M17.0 - Bilateral primary osteoarthritis of knee Plan: #Bilateral knee OA Discussed with patient and x-ray findings. We will send to PT for strengthening of adductors Plan - PT referral Plan I spent 20 minutes reviewing the record and labs, taking a history, examining the patient, discussing the treatment plan and documenting in the medical record Orders: Orders AMB Joint Injection/Aspiration Today M19.019 - Primary osteoarthritis, unspecified shoulder AMB Joint Injection/Aspiration Today M19.019 - Primary osteoarthritis, unspecified shoulder PT Evaluation and Treatment Today M17.0 - Bilateral primary osteoarthritis of knee, M19.011 - Primary osteoarthritis, right shoulder, M19.012 - Primary osteoarthritis, left shoulder Coding Level of Care Code Est Pt Level 3 (66211) Complex EM visit Add On G2211 Diagnoses Primary osteoarthritis of both shoulders M19.011; M19.012 Osteoarthritis type: primary Bilateral primary osteoarthritis of knee M17.0 CPT Codes Coding - 21003 Large joint: 47342 - Large joint ([id number]) Coding - 88478 Large joint: 03286 - Large joint ([id number])
[2024-11-01 11:36] VITALS: BP 134/80; PULSE 65; O2SAT 98; BMI 26.5
--- OUTSIDE RECORDS SUMMARY | 2024-11-01 13:02 | XMS_ITS | Clinical Summary ---
Author Organization [facility] Address [address] [place] [address] Phone Care Team Providers Care Product Director Name Role Phone Johanna Crooks MD Primary Care Provider [phone] Allergies Active Allergy Reactions Criticality Noted Date [...] mouth 1 (one) time each day. Active multivit-min/apyam patricia fumarate (MULTI VITAMIN ORAL) Take 1 [...] - 08/14/2024 11:59 PM EDT Hospital Encounter [facility] CT Scan [address] [place] [phone] Encounter for screening for malignant neoplasm of respiratory organs; Personal history of nicotine dependence Discharge Disposition: Home or Self Care 08/14/2024 3:30 PM EDT Office Visit Lung Screening Program - [place] [address] [facility] [facility] [address] [place] [phone] Robert Smith, PA Encounter for screening for [...] Procedure Name Priority Date/Time Associated Diagnosis Comments EXTERNAL XRAY REPORT 10/23/2024 EXTERNAL XRAY REPORT 10/23/2024 EXTERNAL XRAY REPORT 10/23/2024 EXTERNAL XRAY REPORT 10/23/2024 CBC WITH AUTO DIFFERENTIAL Routine 09/12/2024 8:48 [...] Recently Relevant to Health Maintenance Results * External Xray Report (10/23/2024) Only the most recent of4 resultswithin the time period is included. Anatomical Region Laterality Modality Radiographic Yarelis ging us Provider [facility] IMG XR PROCEDURES Final Result * Thyroid stimulating hormone with reflex to free t4 and free t3 (09/12/2024 8:48 AM EDT) TSH 1.90 0.40 - 4.00 mcIU/mL LAB CHEMISTRY METHOD 09/12/2024 1:48 PM EDT [facility] Blood Venous blood specimen / Unknown Venipuncture / Unknown 09/12/2024 8:48 AM EDT 09/12/2024 8:48 AM EDT Neha FERNANDO LAB BLOOD ORDERABLES Final Res ult [facility] [address] [place] [address], [place] [phone] * (ABNORMAL) Lipid panel with reflex to [...] [facility] [address] [place] [address], * (ABNORMAL) CBC auto differential (09/12/2024 8:48 AM EDT) WBC 4.8 4.8 - 10.8 K/mcL LAB HEMETOLOGY METHOD 09/12/2024 11:09 AM EDT [facility] RBC 5.00(H) 3.80 - 4.80 M/mcL LAB HEMETOLOGY METHOD 09/12/2024 11:09 AM EDT [facility] Hemoglobin 16.3(H) 11.5 - 16.0 g/dL LAB HEMETOLOGY METHOD 09/12/2024 11:09 AM [facility] Hematocrit 46.6 35.0 - 47.0 % LAB HEMETOLOGY METHOD 09/12/2024 11:09 AM EDT [facility] MCV 93.8 79.0 - 98.0 FL LAB HEMETOLOGY METHOD 09/12/2024 11:09 AM [facility] MCH 32.8(H) 27.0 - 32.0 pcg LAB HEMETOLOGY METHOD 09/12/2024 11:09 AM [facility] MCHC 35.0 32.0 - 37.0 g/dL LAB HEMETOLOGY METHOD 09/12/2024 11:09 AM [facility] RDW 13.6 11.0 - 15.0 % LAB HEMETOLOGY METHOD 09/12/2024 11:09 AM [facility] Platelets 210 130 - 400 K/mcL LAB HEMETOLOGY METHOD 09/12/2024 11:09 AM [facility] MPV 10.5 7.0 - 11.0 FL LAB HEMETOLOGY METHOD 09/12/2024 11:09 AM [facility] NRBC 0.0 <1.0 % LAB HEMETOLOGY METHOD 09/12/2024 11:09 AM [facility] NRBC Absolute 0.00 <0.10 K/mcL LAB HEMETOLOGY METHOD 09/12/2024 11:09 AM [facility] Neutrophils Relative 41.6 % LAB HEMETOLOGY METHOD 09/12/2024 11:09 AM [facility] Lymphocytes Relative 40.8 % LAB HEMETOLOGY METHOD 09/12/2024 11:09 AM [facility] Monocytes Relative 13.9 % LAB HEMETOLOGY METHOD 09/12/2024 11:09 AM [facility] Eosinophils Relative 2.7 % LAB HEMETOLOGY METHOD 09/12/2024 11:09 AM [facility] Basophils Relative 0.8 % LAB HEMETOLOGY METHOD 09/12/2024 11:09 AM [facility] Immature Granulocytes Relative 0.2 % LAB HEMETOLOGY METHOD 09/12/2024 11:09 AM EDT [facility] Neutrophils Absolute 1.98 1.50 - 7.00 K/[facility] LAB HEMETOLOGY METHOD 09/12/2024 11:09 AM EDT [facility] Lymphocytes Absolute 1.94 1.00 - 5.00 K/mcL LAB HEMETOLOGY METHOD 09/12/2024 11:09 AM EDT [facility] Monocytes Absolute 0.66 0.20 - 1.00 K/mcL LAB HEMETOLOGY METHOD 09/12/2024 11:09 AM EDT [facility] Eosinophils Absolute 0.13 0.00 - 0.50 K/mcL LAB HEMETOLOGY METHOD 09/12/2024 11:09 AM [facility] Basophils Absolute 0.04 0.00 - 0.20 K/mcL LAB HEMETOLOGY METHOD 09/12/2024 11:09 AM EDT [facility] Immature Granulocytes Absolute 0.01 0.00 - 0.03 K/mcL LAB HEMETOLOGY METHOD 09/12/2024 11:09 AM [facility] Blood Venous blood specimen / Unknown Venipuncture / Unknown 09/12/2024 8:48 AM EDT 09/12/2024 8:48 AM EDT us Neha FERNANDO LAB BLOOD ORDERABLES Final Res ult [facility] [address] [place] [address], * Hemoglobin A1c (09/12/2024 8:48 AM EDT) Hemoglobin A1C 5.0 <6.5 % LAB CHEMISTRY METHOD 09/12/2024 1:02 PM EDT [facility] Mean Bld Glu Estim. 97 mg/dL LAB CHEMISTRY METHOD 09/12/2024 1:02 PM [facility] Blood Venous blood specimen / Unknown Venipuncture / Unknown 09/12/2024 8:48 AM EDT 09/12/2024 8:48 AM EDT us Neha FERNANDO LAB BLOOD ORDERABLES Final Res ult [facility] [address] [place] [address], [place] [phone] * Comprehensive metabolic panel (09/12/2024 8:48 AM EDT) Sodium 140 133 - 145 mmol/L LAB CHEMISTRY METHOD 09/12/2024 12:58 PM [facility] Potassium 3.9 3.5 - 5.5 mmol/L LAB CHEMISTRY METHOD 09/12/2024 12:58 PM [facility] Chloride 107 96 - 110 mmol/L LAB CHEMISTRY METHOD 09/12/2024 12:58 PM [facility] CO2 28 21 - 32 mmol/L LAB CHEMISTRY METHOD 09/12/2024 12:58 PM [facility] Anion Gap 5 3 - 11 LAB CHEMISTRY METHOD 09/12/2024 12:58 PM [facility] Glucose 90 70 - 100 mg/dL LAB CHEMISTRY METHOD 09/12/2024 12:58 PM [facility] BUN 17 5 - 25 mg/dL LAB CHEMISTRY METHOD 09/12/2024 12:58 PM [facility] Creatinine 0.67 0.50 - 1.10 mg/dL LAB CHEMISTRY METHOD 09/12/2024 12:58 PM [facility] eGFR 100 >=60 mL/min/1. 73m2 LAB CHEMISTRY METHOD 09/12/2024 12:58 PM [facility] Comment:Calculation based on the Chronic Kidney Disease Epidemiology Collaboration (CKD-EPI) equation refit without adjustment for race. BUN/Creatinine Ratio 25.4 LAB CHEMISTRY METHOD 09/12/2024 12:58 PM EDT [facility] Calcium 9.3 8.5 - 10.5 mg/dL LAB CHEMISTRY METHOD 09/12/2024 12:58 PM EDT [facility] AST (SGOT) 26 10 [...] [facility] [address] [place] [address], * CT Lung Screening (08/14/2024 4:27 PM [...] Signed Date: 08/15/2024 11:36 ET Workstation ID: [id number] Transcribed By: Self Edit Transcribed Date: 08/15/2024 11:34 ET Narrative 08/15/2024 11:36 AM EDT INDICATION: Former smoker quit 11 years ago with 35 pack-year smoking history FINDINGS: Low-dose CT scan of the chest obtained as a lung cancer screening study. Scanner: [employer] frontier 128 slice [...] Signed Date: 08/15/2024 11:36 ET Workstation ID: [id number] Transcribed By: Self Edit Transcribed Date: 08/15/2024 11:34 ET Senait Vazquez MD IMG CT PROCEDURES Final Result * External Mammogram Report (03/06/2023 4:11 PM EST) Anatomical Region Laterality Modality Mammography [facility] Provider IMAutumn BI PROCEDURES Final R esult * Colonoscopy (05/30/2016) [facility] Colonoscopy no interpretation , abstracted Anatomical Region Laterality Modality Other Result [facility] Provider HEALTH MAINTENANCE Final Result * Hepatitis C Screening (10/02/2015) [facility] Hepatitis C Screening abstracted Result [facility] Provider HEALTH MAINTENANCE Final Result * HIV Screening (02/17/2015) [facility] HIV Screening abstracted Result [facility] Provider HEALTH MAINTENANCE Final Result from Last 3 Months or Most Recently Relevant to Health Maintenance Insurance [facility] Care Teams Product Director Relationship Specialty Start Date End Date Johanna Crooks MD [address] [place] [phone] PCP - General Internal Medicine 03/07/22
== END 2024-11-01 12:51 | disposition home or self-care (01) ==
LOC: HO.RHES 11:13
PROVIDERS: PCP Internal Medicine; Visit Provider Student in an Organized Health Care Education/Training Program
DX: M19.011 Primary osteoarthritis, right shoulder (principal); M19.012 Primary osteoarthritis, left shoulder; M17.0 Bilateral primary osteoarthritis of knee
CPT/HCPCS: 20610; 99213

== ENCOUNTER → 2024-11-01 11:13 | Outpatient (BNVA) | payer BC, SELFPAY | PROVIDERS: PCP Internal Medicine; Visit Provider Student in an Organized Health Care Education/Training Program | DX: M19.011 Primary osteoarthritis, right shoulder (principal); M19.012 Primary osteoarthritis, left shoulder; M17.0 Bilateral primary osteoarthritis of knee | CPT/HCPCS: 20610; J2003; J3301 ==

== ENCOUNTER 2024-12-24 09:14 | Outpatient (REF) | payer BC, SELFPAY ==
[2024-12-24 13:50] LABS: MANUAL DIFF FLAG NO
[2024-12-24 14:06] LABS: Alanine Aminotransferase 26 U/L (0-31); Albumin Level 4.4 g/dL (3.5-5.0); Alkaline Phosphatase 70 U/L (39-117); Anion Gap 13 (12-20); Aspartate Amino Transferase 29 U/L (5-31); Blood Urea Nitrogen 15 mg/dL (9-16); Calcium 9.3 mg/dL (8.4-10.2); Carbon Dioxide 26 mmol/L (22-29); Chloride 103 mmol/L (96-108); Cholesterol 166 mg/dL (<200); Estimated Glomerular Filt Rate > 60; HDL Cholesterol 50 mg/dL (>40); Potassium 3.8 mmol/L (3.3-5.1); Sodium 138 mmol/L (135-145); Total Protein 7.1 g/dL (6.5-8.0); Triglycerides 192 mg/dL (<150)
[2024-12-24 14:30] LABS: Hematocrit 41.5 % (37.0-47.0); Hemoglobin 13.6 g/dl (12.0-16.0); Imm Gran Abs Auto 0.03 X10*3/uL (0.00-0.03); Imm Gran Pct Auto 0.4 % (0.0-0.4); Lymphocytes Absolute Auto 1.8 X10*3/uL (1.2-4.9); Mean Corpuscular HGB Conc 32.8 g/dl (31.0-35.0); Mean Corpuscular Hemoglobin 33.9 pg (27.0-33.0); Mean Corpuscular Volume 103.5 fL (80.0-98.0); NRBC Abs Auto 0.000 X10*3/uL (0.0-0.012); NRBC Pct Auto 0.0 /100WBC (0.0-0.2); Platelet Count 246 X10*3/uL (160-400); Red Blood Count 4.01 X10*6/uL (4.20-5.50); White Blood Count 7.5 X10*3/uL (4.8-10.8)
--- OUTSIDE RECORDS SUMMARY | 2024-12-24 19:15 | XMS_ITS | Data Portability ---
Author Organization [place] - [facility],, STEPHENIE LOCKE MD Address [address] [facility] [address] [place] [address] Care Team Providers Care Sales Data Analyst Name Role Phone [facility] Care Provider Assessment No assessment recorded. Plan of Treatment Reminders Order Date Submit Date Provider Last Modified By Organization Details Last Modified Time Details Appointments None recorded. Lab cytology report, thin prep, smear or scraping, cervical or vaginal 2024 025 ARUNA [facility] (Centralized Electronic Ordering - All Locations), Patient Can Go To The Location Of Their Choice, [id number] 5 12:25:03 cytology report, thin prep, smear or scraping, cervical or vaginal 2023 024 ARUNA [facility] (Centralized Electronic Ordering - All Locations), Patient Can Go To The Location Of Their Choice, [id number] 4 18:06:17 Referral None recorded. Procedures None recorded. Surgeries None recorded. Imaging MAMMO, screening, digital, bilateral - Breast Aspiration and/or Biopsy if needed 2024 025 [facility], [address], [address], [place], [address], 5 10:04:32 MAMMO, screening, digital, bilateral - Breast Aspiration and/or Biopsy if needed 2023 024 [email or web address], [address], [address], [place], [address], 5 07:05:50 Medication Orders estradiol 0.01% (0.1 mg/gram) vaginal cream 2024 025 [id number] [address] [place], [address], 5 10:40:20 estradiol 0.01% (0.1 mg/gram) vaginal cream 2023 024 [facility]/Pharmacy #[id number], [address] [place], [address], 4 16:06:16 Patient TargetsNo targets recorded. Patient Instructions Encounter Date Encounter Id Patient Instructions Last Modified By Organization Details Last Modified Time 06/12/2023 [id number] atrophic vaginitis: care instructions Not available 06/12/2023 [...] the breast. Not available 06/12/2023 16:05:16 06/12/2024 [id number] learning about healthy weight Not available 06/12/2024 [...] Abnormal Flag Note LastModifiedBy Organization Detail LastModifiedTime 06/12/1906/15/2023 IGP, RFX APTIM A HPV ASCU diagnosis: Commsusie MEEK FOR INTRA EPITH ELIAL ROBIN Moncada OR TANNER LENNON . Not Available [facility] ([facility]) [address] [place], [address], 06/15/2023 18:06:17 06/12/19 24 06/15/2023 IGP, RFX APTIM A HPV ASCU specimen adequacy: Commsusie t Satis facto ry for evalu ation . Not Available [facility] ([facility]) [address] [place], [address], 06/15/2023 18:06:17 06/12/19 24 06/15/2023 IGP, RFX APTIM A HPV ASCU clinician provided ICD10: Cam conrad Z01.4 19 Not Available [facility] ([facility]) [address] [place], [address], 06/15/2023 18:06:17 06/12/19 24 06/15/2023 IGP, RFX APTIM A HPV ASCU performed by: Nava Owens (ASCP ) Not Available [facility] ([facility]) [address] [facility], [place], [address], 06/15/2023 18:06:17 06/12/19 24 06/15/2023 IGP, RFX APTIM A HPV ASCU . . Not Available [facility] ([facility]) [address] [facility], [place], [address], 06/15/2023 18:06:17 06/12/19 24 06/15/2023 IGP, RFX APTIM A HPV ASCU note: Cam conrad The Pap smear is a scree grace [...] ts do occur . Not Available [facility] ([facility]) [address] [facility], [place], [address], 06/15/2023 18:06:17 06/12/19 24 06/15/2023 IGP, RFX APTIM A HPV ASCU test methodology: Cam conrad This liqui d based ThinP rep(R ) pap test was scree tory with the use of an image guide jd esparza. Not Available [facility] ([facility]) [address] [facility], [place], [address], 06/15/2023 18:06:17 06/12/19 24 06/15/2023 IGP, RFX APTIM A HPV ASCU . Cam conrad The HPV DNA refle x crite luma were not met with this speci men resul t there fore, no HPV testi ng was perfo rmed. Not Available [facility] ([facility]) [address] [place], [address], 06/15/2023 18:06:17 06/13/19 25 06/14/2024 IGP, RFX APTIM A HPV ASCU diagnosis: Cam MEEK FOR INTRA EPITH ELIAL LESIO N OR TANNER LENNON . Not Available [facility] ([facility]) [address] [place], [address], 06/14/2024 12:25:03 06/13/19 25 06/14/2024 IGP, RFX APTIM A HPV ASCU specimen adequacy: Cam conrad Satis facto trupti for evalu ation . Not Available [facility] ([facility]) [address] [place], [address], 06/14/2024 12:25:03 06/13/19 25 06/14/2024 IGP, RFX APTIM A HPV ASCU clinician provided ICD10: Cam conrad Z01.4 19 Not Available [facility] ([facility]) [address] [place], [address], 06/14/2024 12:25:03 06/13/19 25 06/14/2024 IGP, RFX APTIM A HPV ASCU performed by: Cam garcia, Cytol ogist (ASCP ) Not Available [facility] ([facility]) [address] [place], [address], 06/14/2024 12:25:03 06/13/19 25 06/14/2024 IGP, RFX APTIM A HPV ASCU . . Not Available [facility] ([facility]) [address] [place], [address], 06/14/2024 12:25:03 06/13/19 25 06/14/2024 IGP, RFX [...] ts do occur . Not Available [facility] ([facility]) [address] [place], [address], 06/14/2024 12:25:03 06/13/19 25 06/14/2024 IGP, RFX APTIM A HPV ASCU test methodology: Commen t This liqui d based ThinP rep(R ) pap test was scree tory with the use of an image guide jd esparza. Not Available [facility] ([facility]) [address] [facility], [place], [address], 06/14/2024 12:25:03 06/13/19 25 06/14/2024 IGP, RFX APTIM A HPV ASCU . Commen t The HPV DNA refle x crite luma were not met with this speci men resul t there fore, no HPV testi ng was perfo rmed. Not Available [facility] ([facility]) [address] [place], [address], 06/14/2024 12:25:03 09/27/19 25 09/26/2024 MAMMO , scree grace, digit al, bilat eral No observ ation record ed. [facility] [address] [place] [address], [place], [address], 09/26/2024 10:07:52 Result Notes None recorded. Problems Name Problem SNOMED Code Status Onset Date Resolution Date Notes Provider Name and Address Organization Details Recorded Time Dyspareunia 63596677 Active 2023 Stephenie Locke MD [address], [place], [address], [place] [facility], 4 16:05:22 Atrophic vaginitis 81990880 Active 2023 Stephenie Locke MD [address], [place], [address], [place] [facility], 4 16:05:30 Urinary incontinence 334461109 Active 2023 Stephenie Locke MD [address], [place], [address], [place] [facility], 4 16:05:38 Problem Notes None recorded. Procedures Surgical History Date Name Laterality Status Provider Name and Address Organization Details Recorded Time 06/07/19 24 Most Recent Mammogram completed Marisabel Quintero [place] - [facility], 06/12/2024 10:33:02 06/11/19 20 partial hysterectomy completed Marisabel Corteswelo HOROWITZ - [facility], 06/12/2023 15:21:53 06/09/18 82 Tracheostomy inner cannula completed Marisabel Sophiawelo HOROWITZ - [facility], 06/12/2023 15:23:40 Imaging Results None recorded. Procedure Notes None recorded. Medical Equipment None Reported. Allergies Allergen ID Allergen Name Allergen Category Reaction Reaction Severity Criticality Documentation Date Start Date Code Code System Note Provider Name and Address Organization Details Recorded Time 54718 codeine medicatio n hives Not available Not available 06/12/2023 2670 RxNorm Marisabel Meczywor lázaro [place] - [facility], 15:14:09 30019 naproxen medicatio n itching Not available Not available 06/12/2023 7258 RxNorm Marisabel Meczywor lázaro [place] - [facility], 15:14:24 Medications Name Sig Start Date Stop [...] Body height Body temperature Heart rate Systolic And Diastolic Provider Name and Address Organization Details Last Updated DateTime 4 26461.8 7 g 27.3 kg/m2 165.1 cm 97.2 [degF] 61 /min 115/53 mm[Hg] Marisabel Pederson in [facility], 15:10:59 Date Recorded Body weight Body mass index (BMI) Body height Heart rate Systolic And Diastolic Provider Name and Address Organization Details Last Updated DateTime 06/12/2024 29062.43 g 27.3 kg/m2 165.1 cm 78 /min 136/70 mm[Hg] Marisabel Pederson in [facility], 06/12/2024 10:29:15 Social History Question Answer Notes LastModified by Organizat ion Details LastModified Time Tobacco Smoking Status Former Smoker [place] Blank in [facility], 06/12/2023 15:18:25 What Is Your Level Of [...] Or The Highest Degree You Have Received? [id number] Information not available 06/12/2023 Who Is Your Employer? [employer]. 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 Moderate Information not available 06/12/2023 Mental Status Question Answer Note LastModified by Organization D etails LastModified Time Do you feel stressed (tense, restless, nervous, or anxious, or unable to sleep at night)? [id number] Information not available 06/12/2023 Family History Relationship Description Onset Age of this Age Resolved Age Notes LastModified by Organization Details LastModified Time Sister Malignant neoplasm of breast breast ... [email or web address] Not available 06/12/2023 15:16:05 Father Diabetes mellitus [email or web address] Not available 2023 15:16:24 Mother Diabetes mellitus [email or web address] Not available 2023 15:16:24 Medical History Condition Response Anesthesia complications N High Blood Pressure N Candidate for MyRisk panel N Autoimmune Condition Y Thyroid Problems N Kidney or Bladder Problems N GI Problems N Lung Disease N Depression N Defects or Inherited Disease N History of Ovarian Cancer N Anemia N History of Breast Cancer N GENTRY [...] Influenza, split virus, quadrivalent, preservative 3 completed [place] Blank in [facility], 06/12/2023 15:11:33 Influenza, split virus, quadrivalent, preservative 2 completed [place] Blank in [facility], 06/12/2023 15:11:33 Influenza, split virus, quadrivalent, preservative 0 completed [place] Blank in [facility], 06/12/2023 15:11:33 Influenza, MDCK, quadrivalent, PF 8 completed Marisabel Meczywor null, [place] - [facility], 06/12/2023 15:11:33 COVID-19, mRNA, LNP-S, PF, 100 mcg/0.5mL dose or 50 mcg/0.25mL dose 1 completed Marisabel Meczywor null, [place] - [facility], 06/12/2023 15:11:34 COVID-19, mRNA, LNP-S, PF, 100 mcg/0.5mL dose or 50 mcg/0.25mL dose 1 completed Marisabel Meczywor null, [place] - [facility], 06/12/2023 15:11:34 Influenza, split virus, quadrivalent, PF 1 completed Marisabel Meczywor null, [place] - [facility], 06/12/2023 15:11:34 Past Encounters Encounter ID Performer Location Encounter Start Date Encounter Closed Date Diagnosis/Indication Diagnosis SNOMED-CT Code Diagnosis ICD10 Code Diagnosis IMO Codes Diagnosis Note [id number] MD STEPHENIE Bertrand MD [address] [address] 06/12/2023 15:02:54 06/12/2023 16:11:16 Specialized medical examination 25798935 Z01.419 Screening for malignant neoplasm of rectum 060058994 Z12.12 Screening mammography 24 719328 Z12.31 Atrophic vaginitis 59643 000 N95.2 Dyspareunia 15211322 N94 .10 Urinary incontinence 165 184940 R32 [id number] MD STEPHENIE Bertrand MD [address] [facility] [place] [address] 06/12/2024 10:19:43 06/12/2024 11:44:27 Atrophic vaginitis 50798265 N95.2 Specialize d medical examination 97989888 Z01.419 Screening for malignant neoplasm of rectum 381381800 Z12.12 Screening mammography 24 489548 Z12.31 Health Concerns Section Related Observation LastModified by Organization Detai ls LastModified Time None Recorded Concern Status LastModified by Organization Details LastModified Time None Recorded Advance Directives Directive None Recorded Payers Insurance Date Sequence Insurance Name Policy Number Policy Martin Covered Member ID Martin Member ID Guarantor Name 06/12/2024 1 ADRIENNE-[place]: [facility] [id number] Eliane Fontenot [id number] Eliane Fontenot Notes Date Note Type [...] estradiol vaginal cream twice a week. Stephenie Locke MD [address], [place], [address], [facility], 06/12/2023 16:06:41 06/12/2024 text/html She is here [...] estradiol vaginal cream twice a week. Stephenie Locke MD [address], [place], [address], [facility] - [facility], 06/12/2024 11:17:41 OBGyn Episode No OBEpisode recorded.
== END 2024-12-24 09:15 | disposition home or self-care (01) ==
LOC: HO.HKASLDS 09:14
PROVIDERS: PCP Internal Medicine; Visit Provider Student in an Organized Health Care Education/Training Program
DX: Z79.899 Other long term (current) drug therapy (principal)
CPT/HCPCS: 36415; 80053; 80061; 85025; 85652; 86140

== ENCOUNTER 2024-12-26 14:17 | Outpatient (AMB) | payer BC, SELFPAY ==
--- NOTE | 2024-12-26 14:44 | A.OFFVIS_ITS ---
Vital Signs 12/26/24 14:53 Height 5 ft 6 in Weight 158 lb 11.725 oz BMI 25.6 BP 130/82 Blood Pressure Location Lt brachial Position Sitting Pulse 70 Pulse Source Pulse Oximeter Pulse Oximetry (%) 98 Oxygen Delivery Method Room Air Intake Visit Reasons: follow up Intake Note: Patient presents today for ER follow up. Allergies codeine Allergy (Unknown, Verified 12/26/24 14:52) Unknown naproxen Allergy (Unknown, Verified 12/26/24 14:52) Itching methotrexate Adverse Reaction (Intermediate, Verified 12/26/24 14:52) GI upset HPI Comments Details: Patient is a 59-year-old female with anxiety, MGUS, and polymyalgia rheumatica here today for follow up Interval History: Patient last seen 11/01/24 with me - On Kevzara 200mg SC every 2 weeks - Received bilateral shoulder injections for shoulder OA Today - On Kevzara 200mg SC every 3 weeks (on hold) - Post hospital discharge - Presented to urgent care with flank pain c/b vomiting. 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 Weakness Muscle pain Cervicalgia Anxiety Surgical History H/O: hysterectomy Hx of vaginal surgery Hx of eye surgery Family History Mother Diabetes Hepatitis Father Diabetes Cerebrovascular accident (CVA) Sister Breast cancer in female Social History Alcohol intake: former Patient Tobacco Use Status: Former Tobacco user e-Cigarette/Vaping Use: Currently Using Substance Use Type: Marijuana Gender identity: Female Review of Systems Narrative Review of Systems Constitutional: Denies fever, chills, weight loss ENT: Denies vision changes, eye pain or eye redness, dental caries, dry mouth GI: Denies nausea, vomiting, diarrhea, abdominal pain, change in BM Pulm: Denies SOB, CLARK, hemoptysis, wheezing Cards: Denies chest pain, palpitations Skin: Denies Raynaud's, rash, nail changes, photosensitivity, 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: Denies headaches, weakness, paresthesias, recurrent falls MSK: as per HPI All other systems reviewed and are unremarkable except noted above Physical Exam Exam Exam: Deferred Results Reviewed Results Reviewed: Laboratory Tests 04/10/23 01/10/24 12/24/24 14:32 15:44 09:36 WBC 7.1 7.5 RBC 4.61 4.01 L Hgb 15.1 13.6 Hct 43.4 41.5 Plt Count 246 ESR 9 14 Sodium 141 138 Potassium 4.3 3.8 Chloride 106 103 Carbon Dioxide 26 26 BUN 19 H 15 Creatinine 0.72 0.64 AST 29 ALT 26 C-Reactive Protein 0.29 Assessment & Plan Assessment & Plan (1) PMR (polymyalgia rheumatica): Comment: onset 11/2022 PDN throughout MTX 04/2023 DC 11/2023 ineffective and caused significant GI symptoms Kevzara 11/2023 effective Code(s): M35.3 - Polymyalgia rheumatica Category: Medical Plan: #PMR Patient is a 58-year-old female with PMR here today for follow up after hospitalization for sepsis 2/2 pyelonephritis Given the risk of recurrent UTIs and immunosuppression on Kevzara. We will hold Kevzara and monitor off immunosuppression Plan - Stop Kevzara - RTC February 2025 - Labs prior to visit: CBC, CMP, ESR, CRP Plan I spent 30 minutes reviewing the record and labs, taking a history, examining the patient, discussing the treatment plan and documenting in the medical record Coding Level of Care Code Est Pt Level 4 (92195) Complex visit Add On G2211 Diagnoses PMR (polymyalgia rheumatica) M35.3
[2024-12-26 14:53] VITALS: BP 130/82; PULSE 70; O2SAT 98; BMI 25.6
--- OUTSIDE RECORDS SUMMARY | 2024-12-26 19:44 | XMS_ITS | Clinical Summary ---
Author Organization [facility] Address [address] [place] [address] Phone Care Team Providers Care Hospital Librarian Name Role Phone Johanna Crooks MD Primary Care Provider [phone] Allergies Active Allergy Reactions Criticality Noted Date [...] mouth 1 (one) time each day. Active multivit-min/fe rrous fumarate (MULTI VITAMIN ORAL) Take 1 tablet by mouth 1 (one) time each day. Active vit C/vit E/lutein/min/om ega-3 (OCUVITE ORAL) Take by mouth 1 (one) time each day. Active B-complex with vitamin C (VITAMIN B COMPLEX WITH C ORAL) Take by mouth. Active Kevzara 200 mg/1.14 mL pen injector Inject under the skin. Active predniSONE (DELTASONE) 2.5 mg tablet Take 2 mg by mouth 1 (one) time each day. 4 12/14/19 25 Discontinu ed(Therapy completed) hydrOXYzine HCL (ATARAX) 25 mg tablet Take 1 tablet (25 mg total) by mouth 1 (one) time each day if needed for anxiety. 30 each 12/14/19 25 Discontinu ed(Therapy completed) Active Problems Problem Noted Date Diagnosed Date Seborrheic keratosis 04/30/2024 Polymyalgia rheumatica ([facility] V24) 04/30/2024 Melanocytic nevus of trunk 04/30/2024 Anxiety 10/02/2015 Encounters Date Type Department Care Team Description 12/20/[address] [phone] Johanna Crooks MD 12/16/2024 Results Follow-Up [address] [phone] Tiffanie Tse OR 12/13/2024 1:30 PM EST Lab Draw [address] Pyelonephritis 12/13/2024 12:30 PM EST Office Visit [address] [phone] Johanna Crooks MD Hospital discharge follow-up (Primary Dx); Sepsis with disseminated intravascular coagulation and septic shock, due to unspecified organism ([facility] V24, [facility] V28); Pyelonephritis; Thrombocytopenia ([facility] V24) 12/11/2024 Lab Requisition [facility] [address] [place] [address] Priyank Joiner MD Calculus of kidney; Urinary tract infection, site not specified 12/11/2024 Lab Requisition [facility] [address] [place] [address] Erwin Hanks, [place] Urinary tract infection, site not specified; Hydronephrosis with renal and ureteral calculous obstruction 12/03/[address] [phone] Johanna Crooks MD 12/03/2024 Telephone Adult Medicine [address] [phone] Johanna Crooks MD from Last 3 Months Immunizations Immunization Administration Dates Next Due Influenza Quadravalent, MDCK [...] Sign Reading Time Taken Comments Blood Pressure 106/60 12/13/2024 12:29 PM EST Pulse 77 12/13/2024 12:29 PM EST Temperature 36.3 C (97.3 F) 12/13/2024 12:29 PM EST Respiratory Rate 14 12/13/2024 12:29 PM EST Oxygen Saturation 98% 12/13/2024 12:29 PM EST Inhaled Oxygen Concentration - - Weight 71.8 kg (158 lb 6.4 oz) 12/13/2024 12:29 PM EST Height 167.6 cm (5' 6 ) 12/13/2024 12:29 PM EST Body Mass Index 25.57 12/13/2024 12:29 PM EST Plan of Treatment Upcoming Encounters Date Type Department Care Team (Late st Contact Info) Description 12/27/2024 9:00 AM EST Office Visit Adult Medicine [facility] [address] [place] [address] Johanna Crooks MD [address] [place] [address] Health Maintenance Due Date Last Done Comments RSV Immunization Adult Patients (1 - Risk 50-74 years 1-dose series) 11/20/2013 Social Influencers of Health Screening 01/05/2022 Depression Screening 02/07/2024 Breast Cancer Screening 03/06/2025 03/06/2023 DTaP,Tdap,and Td Vaccines (1 - Tdap) 06/24/2025 Postponed from 11/20/1982 (Not clinically appropriate to address at this time) Pneumococcal Vaccine: 50+ Years (1 of 1 - PCV) 06/24/2025 Postponed from 11/20/2013 (Not clinically appropriate to address at this time) Zoster Vaccines (1 of 2) 06/24/2025 Pos tponed from 11/20/1982 (Not clinically appropriate to address at this time) Lung Cancer Screening (Low Dose CT) 08/14/2025 08/14/2024 Colorectal Cancer Screening: Colonoscopy 05/30/2026 05/30/2016 Cholesterol Screening (Lipid Panel) 09/12/2029 09/12/2024, 11/11/2017 HIV Screening Completed 02/17/2015 Hepatitis C Screening Completed 10/02/2015 COVID-19 Vaccine Discontinued 11/09/2024, , 04/24/2020 Influenza Vaccine Completed 11/09/2024, , 11/09/2021, Additional history exists HIB Vaccines Aged Out No longer eligi [...] 20 months Aged Out No longer eligible based on patient's age to complete this topic Varicella Vaccines Aged Out No longer eligible based on patient's age to complete this topic Procedures Procedure Name Priority Date/Time Associated Diagnosis Comments CBC WITH AUTO DIFFERENTIAL Routine 12/13/2024 1:08 PM EST Pyelonephritis CBC AND DIFFERENTIAL Routine 12/13/2024 1:08 PM EST Pyelonephritis COMPREHENSIVE METABOLIC PANEL Routine 12/13/2024 1:08 PM EST Pyelonephritis CULTURE URINE Routine 12/11/2024 2:30 PM EST Urinary tract infection, site not specified Hydronephrosis with renal and ureteral calculous obstruction COMPLETE BLOOD COUNT Routine 12/11/2024 12:52 PM EST Calculus of kidney Urinary tract infection, site not specified EXTERNAL XRAY REPORT 10/23/2024 EXTERNAL XRAY REPORT 10/23/2024 EXTERNAL XRAY REPORT 10/23/2024 EXTERNAL XRAY REPORT 10/23/2024 LIPID PANEL WITH REFLEX TO DIRECT LDL [...] Recently Relevant to Health Maintenance Results * (ABNORMAL) CBC auto differential (12/13/2024 1:08 PM EST) [facility] WBC 6.4 4.8 - 10.8 K/mcL LAB HEMETOLOGY METHOD 12/13/2024 5:06 PM [facility] RBC 3.90 3.80 - 4.80 M/mcL LAB HEMETOLOGY METHOD 12/13/2024 5:06 PM [facility] Hemoglobin 12.8 11.5 - 16.0 g/dL LAB HEMETOLOGY METHOD 12/13/2024 5:06 PM [facility] Hematocrit 39.6 35.0 - 47.0 % LAB HEMETOLOGY METHOD 12/13/2024 5:06 PM [facility] MCV 102.9(H) 79.0 - 98.0 FL LAB HEMETOLOGY METHOD 12/13/2024 5:06 PM [facility] MCH 33.2(H) 27.0 - 32.0 pcg LAB HEMETOLOGY METHOD 12/13/2024 5:06 PM [facility] MCHC 32.3 32.0 - 37.0 g/dL LAB HEMETOLOGY METHOD 12/13/2024 5:06 PM [facility] RDW 18.2(H) 11.0 - 15.0 % LAB HEMETOLOGY METHOD 12/13/2024 5:06 PM [facility] Platelets 470(H) 130 - 400 K/mcL LAB HEMETOLOGY METHOD 12/13/2024 5:06 PM [facility] MPV 9.8 7.0 - 11.0 FL LAB HEMETOLOGY METHOD 12/13/2024 5:06 PM [facility] NRBC 0.0 <1.0 % LAB HEMETOLOGY METHOD 12/13/2024 5:06 PM [facility] NRBC Absolute 0.00 <0.10 K/mcL LAB HEMETOLOGY METHOD 12/13/2024 5:06 PM [facility] Neutrophils Relative 57.5 % LAB HEMETOLOGY METHOD 12/13/2024 5:06 PM [facility] Lymphocytes Relative 25.2 % LAB HEMETOLOGY METHOD 12/13/2024 5:06 PM [facility] Monocytes Relative 14.9 % LAB HEMETOLOGY METHOD 12/13/2024 5:06 PM [facility] Eosinophils Relative 0.8 % LAB HEMETOLOGY METHOD 12/13/2024 5:06 PM [facility] Basophils Relative 1.1 % LAB HEMETOLOGY METHOD 12/13/2024 5:06 PM [facility] Immature Granulocytes Relative 0.5 % LAB HEMETOLOGY METHOD 12/13/2024 5:06 PM [facility] Neutrophils Absolute 3.66 1.50 - 7.00 K/mcL LAB HEMETOLOGY METHOD 12/13/2024 5:06 PM [facility] Lymphocytes Absolute 1.60 1.00 - 5.00 K/mcL LAB HEMETOLOGY METHOD 12/13/2024 5:06 PM [facility] Monocytes Absolute 0.95 0.20 - 1.00 K/mcL LAB HEMETOLOGY METHOD 12/13/2024 5:06 PM [facility] Eosinophils Absolute 0.05 0.00 - 0.50 K/mcL LAB HEMETOLOGY METHOD 12/13/2024 5:06 PM [facility] Basophils Absolute 0.07 0.00 - 0.20 K/mcL LAB HEMETOLOGY METHOD 12/13/2024 5:06 PM [facility] Immature Granulocytes Absolute 0.03 0.00 - 0.03 K/mcL LAB HEMETOLOGY METHOD 12/13/2024 5:06 PM [facility] Blood Venous blood specimen / Unknown Venipuncture / Unknown 12/13/2024 1:08 PM EST 12/13/2024 1:08 PM EST us Johanna Crooks MD LAB BLOOD ORDERABLES Final Resul t [facility] [address] [place] [address], * Comprehensive metabolic panel (12/13/2024 1:08 PM EST) Sodium 138 133 - 145 mmol/L LAB CHEMISTRY METHOD 12/13/2024 5:18 PM [facility] Potassium 4.3 3.5 - 5.5 mmol/L LAB CHEMISTRY METHOD 12/13/2024 5:18 PM [facility] Chloride 105 96 - 110 mmol/L LAB CHEMISTRY METHOD 12/13/2024 5:18 PM [facility] CO2 28 21 - 32 mmol/L LAB CHEMISTRY METHOD 12/13/2024 5:18 PM [facility] Anion Gap 5 3 - 11 LAB CHEMISTRY METHOD 12/13/2024 5:18 PM [facility] Glucose 89 70 - 100 mg/dL LAB CHEMISTRY METHOD 12/13/2024 5:18 PM [facility] BUN 21 5 - 25 mg/dL LAB CHEMISTRY METHOD 12/13/2024 5:18 PM [facility] Creatinine 0.69 0.50 - 1.10 mg/dL LAB CHEMISTRY METHOD 12/13/2024 5:18 PM [facility] eGFR 99 >=60 mL/min/1. 73m2 LAB CHEMISTRY METHOD 12/13/2024 5:18 PM [facility] Comment:Calculation based on the Chronic Kidney Disease Epidemiology Collaboration (CKD-EPI) equation refit without adjustment for race. BUN/Creatinine Ratio 30.4 LAB CHEMISTRY METHOD 12/13/2024 5:18 PM [facility] Calcium 9.7 8.5 - 10.5 mg/dL LAB CHEMISTRY METHOD 12/13/2024 5:18 PM [facility] AST (SGOT) 21 10 - 42 unit/L LAB CHEMISTRY METHOD 12/13/2024 5:18 PM [facility] ALT (SGPT) 40 10 - 60 unit/L LAB CHEMISTRY METHOD 12/13/2024 5:18 PM [facility] Alkaline Phosphatase 76 42 - 121 unit/L LAB CHEMISTRY METHOD 12/13/2024 5:18 PM [facility] Total Protein 7.2 6.0 - 8.0 g/dL LAB CHEMISTRY METHOD 12/13/2024 5:18 PM [facility] Albumin 4.2 3.2 - 5.0 g/dL LAB CHEMISTRY METHOD 12/13/2024 5:18 PM [facility] Total Bilirubin 0.9 0.0 - 1.4 mg/dL LAB CHEMISTRY METHOD 12/13/2024 5:18 PM [facility] Blood Venous blood specimen / Unknown Venipuncture / Unknown 12/13/2024 1:08 PM EST 12/13/2024 1:08 PM EST Johanna Crooks MD LAB BLOOD ORDERABLES Final Resul t [facility] [address] [place] [address], * Culture urine (12/11/2024 2:30 PM EST) Culture, Urine No growth 12/12/2024 2:46 PM EST [facility] Urine Urine specimen from urethra / Unknown 12/11/2024 2:30 PM EST 12/11/2024 5:58 PM EST us Erwin FERNANDO LAB MICROBIOLOGY - GENERAL ORD ERABLES Final Result [facility] [address] [place] [address], * (ABNORMAL) Complete blood count (12/11/2024 12:52 PM EST) WBC 6.3 4.8 - 10.8 K/mcL LAB HEMETOLOGY METHOD 12/11/2024 6:47 PM EST [facility] RBC 3.60(L) 3.80 - 4.80 M/mcL LAB HEMETOLOGY METHOD 12/11/2024 6:47 PM EST [facility] Hemoglobin 12.2 11.5 - 16.0 g/dL LAB HEMETOLOGY METHOD 12/11/2024 6:47 PM EST [facility] Hematocrit 36.8 35.0 - 47.0 % LAB HEMETOLOGY METHOD 12/11/2024 6:47 PM EST [facility] MCV 101.4(H) 79.0 - 98.0 FL LAB HEMETOLOGY METHOD 12/11/2024 6:47 PM EST [facility] MCH 33.6(H) 27.0 - 32.0 pcg LAB HEMETOLOGY METHOD 12/11/2024 6:47 PM [facility] MCHC 33.2 32.0 - 37.0 g/dL LAB HEMETOLOGY METHOD 12/11/2024 6:47 PM EST [facility] RDW 18.7(H) 11.0 - 15.0 % LAB HEMETOLOGY METHOD 12/11/2024 6:47 PM EST [facility] Platelets 491(H) 130 - 400 K/mcL LAB HEMETOLOGY METHOD 12/11/2024 6:47 PM [facility] MPV 9.7 7.0 - 11.0 FL LAB HEMETOLOGY METHOD 12/11/2024 6:47 PM EST [facility] NRBC 0.3 <1.0 % LAB HEMETOLOGY METHOD 12/11/2024 6:47 PM EST [facility] NRBC Absolute 0.02 <0.10 K/mcL LAB HEMETOLOGY METHOD 12/11/2024 6:47 PM EST [facility] Blood Venous blood specimen / Unknown 12/11/2024 12:52 PM EST 12/11/2024 6:28 PM EST us Priyank Joiner MD LAB BLOOD ORDERABLES Final Result [facility] [address] [place] [address], [place] [phone] * External Xray Report (10/23/2024) Only the most recent of4 resultswithin the time period is included. Anatomical Region Laterality Modality Radiographic Yarelis ging us Provider [facility] IMG XR PROCEDURES Final Result * (ABNORMAL) Lipid panel with reflex to direct LDL (09/12/2024 8:48 AM EDT) Cholesterol 222(H) 0 - 200 mg/dL LAB CHEMISTRY METHOD 09/12/2024 12:58 PM EDT [facility] Triglycerides 202(H) 0 - 150 mg/dL LAB CHEMISTRY METHOD 09/12/2024 12:58 PM EDT [facility] HDL 67 >=40 mg/dL LAB CHEMISTRY METHOD 09/12/2024 12:58 PM EDT [facility] LDL Calculated 115(H) 0 - 100 mg/dL LAB CHEMISTRY METHOD 09/12/2024 12:58 PM EDT [facility] Comment:Estimated LDL Calcul ated using equation: Total cholesterol - HDL cholesterol - (Triglycerides/5) VLDL Cholesterol Tanvir 40.4 mg/dL LAB CHEMISTRY METHOD 09/12/2024 12:58 PM EDT [facility] Non HDL Chol. (LDL+VLDL) 155(H) <145 mg/dL LAB CHEMISTRY METHOD 09/12/2024 12:58 PM EDT [facility] Chol/HDL Ratio 3.3 0.0 - 4.4 LAB CHEMISTRY METHOD 09/12/2024 12:58 PM EDT [facility] Blood Venous blood specimen / Unknown Venipuncture / Unknown 09/12/2024 8:48 AM EDT 09/12/2024 8:48 AM EDT us Neha FERNANDO LAB BLOOD ORDERABLES Final Res ult [facility] [address] [place] [address], [place] [phone] * CT Lung Screening (08/14/2024 4:27 PM [...] Signed Date: 08/15/2024 11:36 ET Workstation ID: [id number] Transcribed By: Self Edit Transcribed Date: 08/15/2024 11:34 ET Narrative 08/15/2024 11:36 AM EDT INDICATION: Former smoker quit 11 years ago with 35 pack-year smoking history FINDINGS: Low-dose CT scan of the chest obtained as a lung cancer screening study. Scanner: Solutionreacher 128 slice VCT Dose reduction technique: ASIR [...] obtained as a lung cancerscreening study. Scanner: Solutionreacher 128 slice VCT Dose reduction technique: ASIR [...] Signed Date: 08/15/2024 11:36 ET Workstation ID: [id number] Transcribed By: Self Edit Transcribed Date: 08/15/2024 11:[address] PROCEDURES Final Result * External Mammogram Report (03/06/2023 4:11 PM EST) Anatomical Region Laterality Modality Mammography us Historical Provider MD WOMACK BI PROCEDURES Final R esult * Hm Colonoscopy (05/30/2016) Colonoscopy no interpretation , abstracted Anatomical Region Laterality Modality Other Historical Provider HEALTH MAINTENANCE Final Result * Hepatitis C Screening (10/02/2015) Hepatitis C Screening abstracted Historical Provider HEALTH MAINTENANCE Final Result * HIV Screening (02/17/2015) Pathologist [facility] HIV Screening abstracted Historical Provider HEALTH MAINTENANCE Final Result from Last 3 Months or Most Recently Relevant to Health Maintenance Insurance [facility] Care Teams Hospital Librarian Relationship Specialty Start Date End Date Johanna Crooks MD [address] [place] [phone] PCP - General Internal Medicine 03/07/22
--- OUTSIDE RECORDS SUMMARY | 2024-12-26 19:44 | XMS_ITS | Encounter Summary ---
Author Organization [facility] Address [address] [place] [address] Care Team Providers Care Industrial Security Analyst Name Role Phone Johanna Crooks MD Primary Care Provider [phone] Reason for Visit * Reason Onset Date Comments faxed vna order 12/20/2024 [facility] Cert [id number] Encounter Details Date Type Department Care Team ([facility] Contact Info) Description 12/20/2024 Telephone Adult [facility] [address] [place] [address] Johanna Crooks MD [address] [place] [address] Social History Tobacco Use Types Packs/Day Years [...] as of this encounter Progress Notes * Erika Correia - 12/20/2024 2:11 PM EST Faxed order received from [facility] Cert [id number] please sign and fax to [phone]. documented in this encounter Plan of Treatment Upcoming Encounters Date Type Department Care Team ([facility] Contact Info) Description 12/27/2024 9:00 AM EST Office Visit Adult Medicine [address] [phone] Johanna Crooks MD [address] [place] [address] documented as of this encounter Visit Diagnoses Not on filedocumented in this encounter Care Teams Industrial Security Analyst Relationship Specialty Start Date End Date Johanna Crooks MD [address] [place] [address] PCP - General Internal Medicine 03/07/22 documented as of this encounter
--- OUTSIDE RECORDS SUMMARY | 2024-12-26 19:44 | XMS_ITS | Encounter Summary ---
Author Organization [facility] Address [address] [place] [address] Care Team Providers Care Pneumatic Jacketer Name Role Phone Johanna Crooks MD Primary Care Provider [phone] Reason for Visit * Reason Onset Date Comments VNA 12/03/2024 JOSIE 12/03/2024 Encounter Details Date Type Department Care Team (Late st Contact Info) Description 12/03/2024 Telephone Adult Medicine [address] [phone] Johanna Crooks MD [address] [place] [address] Social History Tobacco Use Types Packs/Day Years [...] as of this encounter Progress Notes * Babs Goddard RN - 12/04/2024 10:51 AM EDT Called ALTAGRACIA Lawler , informed her of the VO ok and the follow up apt. Date and time for pt. With PVC * Johanna Crooks MD - 12/04/2024 9:48 AM EDT Ok to give VO * Babs Goddard RN - 12/04/2024 9:39 AM EDT Pt. Booked for [facility] follow up 11/26 dx kidney stone and sepsis apt. Made for Wednesday 12/13 pt. Will call office with any concerns prior to apt. And if any worsening symptoms or recurrent symptoms advised to return to ER. Pt. agrees VNA is requesting VO for home health visits. Sending to PCP * Mandy Parra - 12/04/2024 9:01 AM EDT Chata with [facility] is calling. States patient start of care is today. Needs call back JOSIE * Aurelia Harper RN - 12/03/2024 2:11 PM EDT Pt needs hospital f/u with pcp Call to opt , no answer , unable to leave a message sent my chart message * Haley Campos - 12/03/2024 1:55 PM EDT [facility] CALL [facility] Full name of caller: Nuris The caller is Intake Is the caller at the patients home?: no Reason for call: verbal orders for nursing needed Does caller need an urgent call back? Yes, per caller Was CONTACT Telephone # obtained above?: yes Fax #: documented in this encounter Plan of Treatment Upcoming Encounters Date Type Department Care Team (Late st Contact Info) Description 12/27/2024 9:00 AM EST Office Visit Adult Medicine [address] [phone] Johanna Crooks MD [address] [place] [address] documented as of this encounter Visit Diagnoses Not on filedocumented in this encounter Care Teams Pneumatic Jacketer Relationship Specialty Start Date End Date Johanna Crooks MD [address] [place] [address] PCP - General Internal Medicine 03/07/22 documented as of this encounter
--- OUTSIDE RECORDS SUMMARY | 2024-12-26 19:44 | XMS_ITS | Encounter Summary ---
Author Organization [facility] Address [address] [place] [address] Care Team Providers Care Frame Runner Name Role Phone Johanna Crooks MD Primary Care Provider [phone] Encounter Details Date Type Department Care Team (Late Contact Info) Description 12/16/2024 Results Follow-Up Adult [address] [phone] Tiffanie Tse [place] Social History Tobacco Use Types Packs/Day Years [...] on file documented as of this encounter Plan of Treatment Upcoming Encounters Date Type Department Care Team (Late Contact Info) Description 12/27/2024 9:00 AM EST Office Visit Adult [address] [phone] Johanna Crooks MD [address] [place] [address] documented as of this encounter Visit Diagnoses Not on filedocumented in this encounter Care Teams Frame Runner Relationship Specialty Start Date End Date Johanna Crooks MD [address] [place] [address] PCP - General Internal Medicine 03/07/22 documented as of this encounter
--- OUTSIDE RECORDS SUMMARY | 2024-12-26 19:44 | XMS_ITS | Encounter Summary ---
Author Organization [facility] Address [address] [place] [address] Care Team Providers Care Narrative Writer Name Role Phone Johanna Crooks MD Primary Care Provider [phone] Encounter Details Date Type Department Care Team (Late Contact Info) Description 12/11/2024 Lab Requisition [facility] [address] [facility] [place] [place] [phone] Priyank Joiner MD [address] [place] [address] Calculus of kidney; Urinary tract infection, site not specified Social History Tobacco Use Types Packs/Day Years [...] 9:00 AM EST Office Visit Adult Medicine [address] [phone] Johanna Crooks MD [address] [place] [address] documented as of this encounter Procedures Procedure Name Priority Date/Time Associated Diagnosis Comments COMPLETE BLOOD COUNT Routine 12/11/2024 12:52 PM EST Calculus of kidney Urinary tract infection, site not specified documented in this encounter Results * (ABNORMAL) Complete blood count (12/11/2024 12:52 PM EST) WBC 6.3 4.8 - 10.8 K/mcL LAB HEMETOLOGY METHOD 12/11/2024 6:47 PM [facility] RBC 3.60(L) 3.80 - 4.80 M/mcL LAB HEMETOLOGY METHOD 12/11/2024 6:47 PM [facility] Hemoglobin 12.2 11.5 - 16.0 g/dL LAB HEMETOLOGY METHOD 12/11/2024 6:47 PM [facility] Hematocrit 36.8 35.0 - 47.0 % LAB HEMETOLOGY METHOD 12/11/2024 6:47 PM [facility] MCV 101.4(H) 79.0 - 98.0 FL LAB HEMETOLOGY METHOD 12/11/2024 6:47 PM [facility] MCH 33.6(H) 27.0 - 32.0 pcg LAB HEMETOLOGY METHOD 12/11/2024 6:47 PM [facility] MCHC 33.2 32.0 - 37.0 g/dL LAB HEMETOLOGY METHOD 12/11/2024 6:47 PM [facility] RDW 18.7(H) 11.0 - 15.0 % LAB HEMETOLOGY METHOD 12/11/2024 6:47 PM [facility] Platelets 491(H) 130 - 400 K/mcL LAB HEMETOLOGY METHOD 12/11/2024 6:47 PM [facility] MPV 9.7 7.0 - 11.0 FL LAB HEMETOLOGY METHOD 12/11/2024 6:47 PM [facility] NRBC 0.3 <1.0 % LAB HEMETOLOGY METHOD 12/11/2024 6:47 PM EST [facility] NRBC Absolute 0.02 <0.10 K/mcL LAB HEMETOLOGY METHOD 12/11/2024 6:47 PM EST [facility] Blood Venous blood specimen / Unknown 12/11/2024 12:52 PM EST 12/11/2024 6:28 PM EST us Priyank Joiner MD LAB BLOOD ORDERABLES Final Result [facility] [address] [place] [address], documented in this encounter Visit Diagnoses Diagnosis Calculus of kidney Urinary tract infection, site not specified documented in this encounter Care Teams Narrative Writer Relationship Specialty Start Date End Date Johanna Crooks MD [address] [place] [phone] PCP - General Internal Medicine 03/07/22 documented as of this encounter
--- OUTSIDE RECORDS SUMMARY | 2024-12-26 19:44 | XMS_ITS | Encounter Summary ---
Author Organization [facility] Address [address] [place] [address] Care Team Providers Care Stitchdowns Toe Former Name Role Phone Johanna Crooks MD Primary Care Provider [phone] Encounter Details Date Type Department Care Team (Late Contact Info) Description 12/11/2024 Lab Requisition [facility] - Main Lab [address] [facility] [place] [address] Erwin Hanks, ABDULLAHI [address] [place] [phone] Urinary tract infection, site not specified; Hydronephrosis with renal and ureteral calculous obstruction Social History Tobacco Use Types Packs/Day Years [...] 9:00 AM EST Office Visit Adult Medicine [address] [phone] Johanna Crooks MD [address] [place] [address] documented as of this encounter Procedures Procedure Name Priority Date/Time Associated Diagnosis Comments CULTURE URINE Routine 12/11/2024 2:30 PM EST Urinary tract infection, site not specified Hydronephrosis with renal and ureteral calculous obstruction documented in this encounter Results * Culture urine (12/11/2024 2:30 PM EST) Culture, Urine No growth 12/12/2024 2:46 PM EST [facility] Urine Urine specimen from urethra / Unknown 12/11/2024 2:30 PM EST 12/11/2024 5:58 PM EST us [facility] MICROBIOLOGY - GENERAL ORD ERABLES Final Result [facility] [address] [place] [address], documented in this encounter Visit Diagnoses Diagnosis Urinary tract infection, site not specified Hydronephrosis with renal and ureteral calculous obstruction documented in this encounter Care Teams Stitchdowns Toe Former Relationship Specialty Start Date End Date Johanna Crooks MD [address] [place] [phone] PCP - General Internal Medicine 03/07/22 documented as of this encounter
--- OUTSIDE RECORDS SUMMARY | 2024-12-26 19:44 | XMS_ITS | Encounter Summary ---
Author Organization [facility] Address [address] [place] [address] Care Team Providers Care Ibm Bpm Architect Name Role Phone Johanna Crooks MD Primary Care Provider [phone] Reason for Referral * Consultation (Routine) - Closed Specialty Diagnoses / Procedures Referred By Contac t Referred To Contact Urology Diagnoses Other hydronephrosis Johanna Crooks MD [address] [place] [address] Phone: tel: fax: Priyank Benítez MD [address] [facility] [address] [place] [address] Phone: tel: fax: Referral ID Status Reason Start Date Expiration Date V isits Requested Visits Authorized [id number] Closed Specialty Services Required 12/09/2024 12/09/2025 6 6 Reason for Visit * Reason Onset Date Comments Referral 12/03/2024 Encounter Details Date Type Department Care Team (Late st Contact Info) Description 12/03/2024 Telephone Adult Medicine [address] [phone] Johanna Crooks MD [address] [place] [address] Social History Tobacco Use Types Packs/Day Years [...] as of this encounter Progress Notes * Angela Kidd - 12/03/2024 1:01 PM EDT Fax received requesting an insurance referral Encounter already started Diagnosis code changed to match what's on the fax Name of person calling to request this referral? Fax -PVU Referred To Provider (Include first and last name): Priyank Benítez NPI (if known): [id number] Order/Specialty requested urology Chief Complaint (Note: This is not a body part or a procedure): N13.39 hydronephrosis Has the patient seen provider for this problem/Dx before? Referred To Provider Address: Referred To Provider Phone: Referred To Provider Does patient have an appointment scheduled?: yes If yes, what is the date of the appointment?: 12/11/24 Is this a retro request? no Number of visits requested: 6 Is this appointment related to: MVA or worker compensation? no * Yanni Mendenhall - 12/03/2024 12:29 PM EDT Referral Request: What insurance does the patient have today? BCBS Referrals cannot be processed if the insurance is not accurate. If the insurance listed above in red is NO BILLING INFORMATION FOUND FOR THIS ENCOUTNER The patients correct insurance must be obtained and registered in [facility] or their referral can not be processed. Who is calling to request this referral? PATIENT If the caller is not the patient, what is their name? not applicable Ask the patient WHO referred them to this specialty: Patient was seen in the [facility] ER/hospital by [facility] and was referred to this specialty FIRST and LAST NAME of SPECIALIST PATIENT is seeing: DR PRIYANK BENÍTEZ What specialty is this? UROLOGIST DIAGNOSIS Patient is being seen for (Not a body part or a procedure): KIDNEY STONE Have you seen this SPECIALIST for this PROBLEM/DX before? If YES, when? No Have you checked REVIEW or the APPT DESK to see if this referral has already been done or has visits left? yes Is this visit: Initial Visit Address of Specialist: [place] [address] Phone # of Specialist: [phone] Fax #: (if applicable): [phone] Does patient have an appointment scheduled?: yes Date of appointment- (including a retro-request): 12/11/2024 Is this appointment related to: Not MVA, worker compensation, or surgery related documented in this encounter Plan of Treatment Upcoming Encounters Date Type Department Care Team (Late st Contact Info) Description 12/27/2024 9:00 AM EST Office Visit Adult Medicine [address] [phone] Johanna Crooks MD [address] [place] [address] Scheduled Referrals Name Type Priority Associated Diagnoses Orde r Schedule Ambulatory referral to Urology Outpatient Referral Routine Other hydronephrosis 1 Occurrences starting 12/09/2024 until 12/03/2025 documented as of this encounter Visit Diagnoses Diagnosis Other hydronephrosis- Primary documented in this encounter Care Teams Ibm Bpm Architect Relationship Specialty Start Date End Date Johanna Crooks MD [address] [place] [address] PCP - General Internal Medicine 03/07/22 documented as of this encounter
--- OUTSIDE RECORDS SUMMARY | 2024-12-26 19:44 | XMS_ITS | Data Portability ---
Author Organization [place] [facility],, STEPHENIE LOCKE MD Address [address] [facility] [address] [place] [address] Care Team Providers Care Test Department Helper Name Role Phone [facility] Care Provider Assessment No assessment recorded. Plan of Treatment Reminders Order Date Submit Date Provider Last Modified By Organization Details Last Modified Time Details Appointments None recorded. Lab cytology report, thin prep, smear or scraping, cervical or vaginal 2024 025 [facility] (Centralized Electronic Ordering - All Locations), Patient Can Go To The Location Of Their Choice, [id number] 5 12:25:03 cytology report, thin prep, smear or scraping, cervical or vaginal 2023 024 [facility] (Centralized Electronic Ordering - All Locations), Patient Can Go To The Location Of Their Choice, [id number] 4 18:06:17 Referral None recorded. Procedures None recorded. Surgeries None recorded. Imaging MAMMO, screening, digital, bilateral - Breast Aspiration and/or Biopsy if needed 2024 025 [facility] Orders, [address], [address], [place], [address], 5 10:04:32 MAMMO, screening, digital, bilateral - Breast Aspiration and/or Biopsy if needed 2023 024 [email or web address], [address], [place], [address], 5 07:05:50 Medication Orders estradiol 0.01% (0.1 mg/gram) vaginal cream 2024 025 [id number] [address] [place], [address], 5 10:40:20 estradiol 0.01% (0.1 mg/gram) vaginal cream 2023 024 [facility] #[id number], [address] [place], [address], 4 16:06:16 Patient TargetsNo targets recorded. Patient Instructions Encounter Date Encounter Id Patient Instructions Last Modified By Organization Details Last Modified Time 06/12/2023 [id number] atrophic vaginitis: care instructions Not available 06/12/2023 [...] the breast. Not available 06/12/2023 16:05:16 06/12/2024 [id number] learning about healthy weight Not available 06/12/2024 [...] OR TANNER LENNON . Not Available [facility] ([facility]) [address] [place], [address], 06/15/2023 18:06:17 06/12/19 24 06/15/2023 IGP, RFX APTIM A HPV ASCU specimen adequacy: Commsusie t Satis facto ry for evalu ation . Not Available [facility] ([facility]) [address] [place], [address], 06/15/2023 18:06:17 06/12/19 24 06/15/2023 IGP, RFX APTIM A HPV ASCU clinician provided ICD10: Cam conrad Z01.4 19 Not Available [facility] ([facility]) [address] [place], [address], 06/15/2023 18:06:17 06/12/19 24 06/15/2023 IGP, RFX APTIM A HPV ASCU performed by: Nava Owens (ASCP ) Not Available [facility] ([facility]) [address] [facility], [place], [address], 06/15/2023 18:06:17 06/12/19 24 06/15/2023 IGP, RFX APTIM A HPV ASCU . . Not Available [facility] ([facility]) [address] [facility], [place], [address], 06/15/2023 18:06:17 06/12/19 24 06/15/2023 IGP, RFX APTIM A HPV ASCU note: Cam conrad The Pap smear is a scree grace test desig otry to aid in the detec tion of merced ligna nt and malig nant condi tions of the uteri ne cervi x. It is not a diagn ostic proce dure and shoul d not be used as the sole means of detec ting cervi kahlil cance r. Both false -posi tive and false -nega tive repor ts do occur . Not Available [facility] ([facility]) [address] [facility], [place], [address], 06/15/2023 18:06:17 06/12/19 24 06/15/2023 IGP, RFX APTIM A HPV ASCU test methodology: Cam conrad This liqui d based ThinP rep(R ) pap test was scree tory with the use of an image guide jd esparza. Not Available [facility] ([facility]) [address] [facility], [place], [address], 06/15/2023 18:06:17 06/12/19 24 06/15/2023 IGP, RFX APTIM A HPV ASCU . Cam conrad The HPV DNA refle x crite luma were not met with this speci men resul t there fore, no HPV testi ng was perfo rmed. Not Available [facility] ([facility]) [address] [place], [address], 06/15/2023 18:06:17 06/13/19 25 06/14/2024 IGP, RFX APTIM A HPV ASCU diagnosis: Cam MEEK FOR INTRA EPITH ELIAL LESIO N OR TANNER LENNON . Not Available [facility] ([facility]) [address] [place], [address], 06/14/2024 12:25:03 06/13/19 25 06/14/2024 IGP, RFX APTIM A HPV ASCU specimen adequacy: Cam conrad Satis facto trupti for evalu ation . Not Available [facility] ([facility]) [address] [place], [address], 06/14/2024 12:25:03 06/13/19 25 06/14/2024 IGP, RFX APTIM A HPV ASCU clinician provided ICD10: Cam conrad Z01.4 19 Not Available [facility] ([facility]) [address] [place], [address], 06/14/2024 12:25:03 06/13/19 25 06/14/2024 IGP, RFX APTIM A HPV ASCU performed by: Cam garcia, Cytol ogist (ASCP ) Not Available [facility] ([facility]) [address] [place], [address], 06/14/2024 12:25:03 06/13/19 25 06/14/2024 IGP, RFX APTIM A HPV ASCU . . Not Available [facility] ([facility]) [address] [place], [address], 06/14/2024 12:25:03 06/13/19 25 06/14/2024 IGP, RFX [...] ts do occur . Not Available [facility] ([facility]) [address] [place], [address], 06/14/2024 12:25:03 06/13/19 25 06/14/2024 IGP, RFX APTIM A HPV ASCU test methodology: Commen t This liqui d based ThinP rep(R ) pap test was scree tory with the use of an image guide jd esparza. Not Available [facility] ([facility]) [address] [facility], [place], [address], 06/14/2024 12:25:03 06/13/19 25 06/14/2024 IGP, RFX APTIM A HPV ASCU . Commen t The HPV DNA refle x crite luma were not met with this speci men resul t there fore, no HPV testi ng was perfo rmed. Not Available [facility] ([facility]) [address] [place], [address], 06/14/2024 12:25:03 09/27/19 25 09/26/2024 MAMMO , scree grace, digit al, bilat eral No observ ation record ed. [facility] [address] [place] [address], [place], [address], 09/26/2024 10:07:52 Result Notes None recorded. Problems Name Problem SNOMED Code Status Onset Date Resolution Date Notes Provider Name and Address Organization Details Recorded Time Dyspareunia 61625275 Active 2023 Stephenie Locke MD [address], [place], [address], [place] [facility], 4 16:05:22 Atrophic vaginitis 47117600 Active 2023 Stephenie Locke MD [address], [place], [address], [place] [facility], 4 16:05:30 Urinary incontinence 797889140 Active 2023 Stephenie Locke MD [address], [place], [address], [place] [facility], 4 16:05:38 Problem Notes None recorded. Procedures Surgical History Date Name Laterality Status Provider Name and Address Organization Details Recorded Time 06/07/19 24 Most Recent Mammogram completed Marisabel Quintero [place] - [facility], 06/12/2024 10:33:02 06/11/19 20 partial hysterectomy completed Marisabel Corteswelo HOROWITZ - [facility], 06/12/2023 15:21:53 06/09/18 82 Tracheostomy inner cannula completed Marisabel Sophiawelo [place]Z - [facility], 06/12/2023 15:23:40 Imaging Results None recorded. Procedure Notes None recorded. Medical Equipment None Reported. Allergies Allergen ID Allergen Name Allergen Category Reaction Reaction Severity Criticality Documentation Date Start Date Code Code System Note Provider Name and Address Organization Details Recorded Time 30329 codeine medicatio n hives Not available Not available 06/12/2023 2670 RxNorm Marisabel Meczywor lázaro [place] - [facility], 15:14:09 [address]9812 naproxen medicatio n itching Not available Not available 06/12/2023 7258 RxNorm Marisabel Meczywor lázaro [place] - [facility], 15:14:24 Medications Name Sig Start Date Stop [...] Address Organization Details Last Updated DateTime 4 13166.8 7 g 27.3 kg/m2 165.1 cm 97.2 [degF] 61 /min 115/53 mm[Hg] Marisabel Pederson in [facility], 15:10:59 Date Recorded Body weight Body mass index (BMI) Body height Heart rate Systolic And Diastolic Provider Name and Address Organization Details Last Updated DateTime 06/12/2024 89978.43 g 27.3 kg/m2 165.1 cm 78 /min 136/70 mm[Hg] Marisabel Pederson in [facility], 06/12/2024 10:29:15 Social History Question Answer Notes LastModified by Organizat ion Details LastModified Time Tobacco Smoking Status Former Smoker [place] Blank in [facility], 06/12/2023 15:18:25 What Is Your Level Of [...] Or The Highest Degree You Have Received? [id number] Information not available 06/12/2023 Who Is Your Employer? [employer]. 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 Moderate Information not available 06/12/2023 Mental Status Question Answer Note LastModified by Organization D etails LastModified Time Do you feel stressed (tense, restless, nervous, or anxious, or unable to sleep at night)? [id number] Information not available 06/12/2023 Family History Relationship [...] or Bladder Problems N Thyroid Problems N GI Problems N Lung Disease [...] preservative 3 completed [place] Blank in [facility], 06/12/2023 15:11:33 Influenza, split virus, quadrivalent, preservative 2 completed [place] Blank in [facility], 06/12/2023 15:11:33 Influenza, split virus, quadrivalent, preservative 0 completed [place] Blank in [facility], 06/12/2023 15:11:33 Influenza, MDCK, quadrivalent, PF 8 completed Marisabel Meczywor null, [place] - [facility], 06/12/2023 15:11:33 COVID-19, mRNA, LNP-S, PF, 100 mcg/0.5mL dose or 50 mcg/0.25mL dose 1 completed Marisabel Meczywor null, [place] - [facility], 06/12/2023 15:11:34 COVID-19, mRNA, LNP-S, PF, 100 mcg/0.5mL dose or 50 mcg/0.25mL dose 1 completed Marisabel Meczywor null, [place] [facility], 06/12/2023 15:11:34 Influenza, split virus, quadrivalent, PF 1 completed Marisabel Meczywor null, [place] [facility], 06/12/2023 15:11:34 Past Encounters Encounter ID Performer Location Encounter Start Date Encounter Closed Date Diagnosis/Indication Diagnosis SNOMED-CT Code Diagnosis ICD10 Code Diagnosis IMO Codes Diagnosis Note [id number] MD STEPHENIE Bertrand MD [address] [address] 06/12/2023 15:02:54 06/12/2023 16:11:16 Specialized medical examination 59161661 Z01.419 Screening for malignant neoplasm of rectum 985507453 Z12.12 Screening mammography 24 513174 Z12.31 Atrophic vaginitis 03626 000 N95.2 Dyspareunia 99088717 N94 .10 Urinary incontinence 165 467159 R32 [id number] MD STEPHENIE Bertrand MD [address] [facility] [place] [address] 06/12/2024 10:19:43 06/12/2024 11:44:27 Atrophic vaginitis 66044138 N95.2 Specialize d medical examination 90456883 Z01.419 Screening for malignant neoplasm of rectum 783103754 Z12.12 Screening mammography 24 216546 Z12.31 Health Concerns Section Related Observation LastModified by Organization Detai ls LastModified Time None Recorded Concern Status LastModified by Organization Details LastModified Time None Recorded Advance Directives Directive None Recorded Payers Insurance Date Sequence Insurance Name Policy Number Policy Martin Covered Member ID Martin Member ID Guarantor Name 06/12/2024 1 ADRIENNE-[place]: [facility] [id number] Eliane Fontenot [id number] Eliane Fontenot Notes Date Note Type [...] twice a week. Stephenie Locke MD [address], [place], [address], [facility] [...] twice a week. Stephenie Locke MD [address], [place], [address], [facility], 06/12/2024 11:17:41 OBGyn Episode No OBEpisode recorded.
--- OUTSIDE RECORDS SUMMARY | 2024-12-26 19:44 | XMS_ITS ---
Author Organization [facility] Address [address] [place] [address] Phone Care Team Providers Care Fiscal Accounting Clerk Name Role Phone Johanna Crooks MD Primary Care Provider Transitional Care Management Status:Identified (Enrolling) Start date:12/02/2024 Enrollment reason:Identified using hospital discharge data Case Team Name Relationship Phone Jace Herman LPN(Responsible Staff) Business Continuity Planner Continued Care and Services Coordination
== END 2024-12-26 15:33 | disposition home or self-care (01) ==
LOC: HO.RHES 14:17
PROVIDERS: PCP Internal Medicine; Visit Provider Student in an Organized Health Care Education/Training Program
DX: M35.3 Polymyalgia rheumatica (principal)
CPT/HCPCS: 99214